=== PATIENT | male | born 1945 | race Caucasian/White ===

== ENCOUNTER 2017-05-04 08:44 | Day surgery (SDC) | payer MEDICARE, OTHER ==
[2017-04-28 16:05] VITALS: BMI 32.0
[~2017-05-04 08:44] MED LIST: LACTATED RINGERS 1,000 ML IV SCH
[2017-05-04] MEDS ORDERED: TIMOLOL 0.5% OPHTH DROPS 5 ML BTL ONE (09:00)
[2017-05-04] MEDS: PHENYLEPHRINE 10% OPHTH DROPS 5 ML BTL OP ONE ×3 (10:10→10:34)
[2017-05-04] MEDS: CYCLOPENTOLATE 1% OPHTH SOLN 2 ML BTL OP ONE ×3 (10:14→10:38)
[2017-05-04] MEDS: FLURBIPROFEN 0.03% OPHTH DROPS 2.5 ML BTL OP ONE ×3 (10:18→10:42)
[2017-05-04 10:29] VITALS: RESP 18; TEMP 97.4
[2017-05-04] MEDS ORDERED: LIDOCAINE 1% 20 ML VIAL (10MG/ML) FOR IV START INTRADERMA ONE (10:40)
[2017-05-04 10:42] LABS: Glucose,Whole Blood 116 mg/dL (75-99)
[2017-05-04] MEDS ORDERED: PROPOFOL 10 MG/ML 20 ML VIAL IV ONE (10:54)
[2017-05-04] MEDS ORDERED: BALANCED SALT IRRIG SOLN COMB2 15 ML IRRIG.SOLN IRRIGATION ONE (11:02)
[2017-05-04] MEDS ORDERED: HYALURONATE SODIUM INTRAOCULAR 1 EACH SYRINGE (10MG/ML) INTRAOCULA ONE (11:02)
[2017-05-04] MEDS ORDERED: EPINEPHrine (PF) 0.5 ML in BALANCED SALT IRRIG SOLN COMB2 500 ML IRRIGATION ONE (11:09)
--- NOTE | 2017-05-04 11:19 | P.OP ---
Date of Procedure: 05/04/17 Procedure(s) Performed: PREOPERATIVE DIAGNOSIS: Cataract, right eye. POSTOPERATIVE DIAGNOSIS: Cataract, right eye. OPERATION: Phacoemulsification cataract, right eye. DESCRIPTION OF PROCEDURE: The patient was taken to the preoperative holding area. Intravenous Propofol was given so as to bring about adequate sedation. The following mixture was given for local anesthesia: 5 mL of 2% lidocaine, 5 mL of 0.75% Marcaine, and 1 mL of Wydase. Approximately 4 mL was injected in the retrobulbar space of the surgical eye. Additional 1 mL was then directed to the temporal area of the surgical eye. This was performed to allow adequate neurological block of the facial muscles. The patient was revived and then taken into the operative room. The patient was prepped and draped in the usual sterile manner for the operative eye. A lid speculum was put into position. The conjunctiva was resected back from the limbus in the 12 o'clock position. Bleeding was controlled with electrocautery. A #69 blade was then used and a half-thickness scleral incision approximately 1-mm posterior to the limbus was made on bare sclera. This was shelved in the clear cornea using a crescent knife. Next a 15-degree blade was used to make a stab incision at the 3 o' clock position at the corneolimbal interface. Keratome blade was then used and the superior wound was extended into the anterior chamber. Viscoelastic was injected into the anterior chamber and to maintain its form. Next, a cystotome was used and a continuous anterior capsulotomy was made without difficulty. Hydrodissection using a blunt cannula and BSS was performed. Phaco probe was then employed and a groove extending from 12 to 6 o'clock in the lens was created. A Ronn wand was used through the stab incision so as to perform a divide and conquer technique. Next an irrigation aspiration probe was utilized and any residual cortex was removed from the eye. Again, viscoelastic was injected into the anterior chamber. An Jose posterior chamber lens implant was placed in the cartridge and injected into the anterior chamber without difficulty. The SinEstadebodaey hook was utilized to spin the lens into position and this was again performed without any difficulty. The irrigation and aspiration probe was again employed and any residual viscoelastic was removed from the eye. Then BSS was injected into the limbal stab incision and the anterior chamber re-inflated. The conjunctiva was reapproximated using electrocautery. One drop of 0.25% Timoptic was placed over the corneal along with TobraDex ophthalmic ointment. Two sterile patches and a Miller eye shield were taped into position. The patient was transported to the recovery room in stable condition. Pathology: none sent Condition: stable Disposition: same day
[2017-05-04 11:44] VITALS: BP 154/74; PULSE 68
[2017-05-04] MEDS ORDERED: GENTAMICIN/PREDNISOL AC OPHTH OINT 3.5GM OPHTHALMIC ONE (23:00)
[2017-05-04] MEDS ORDERED: BUPIVACAINE (PF) 0.75% 5 ML, HYALURONIDASE, HUMAN RECOMB 150 UNIT, LIDOCAINE 2% (PF) 10... MISCELLANE ONE ×3 (23:00)
[2017-05-04] MEDS ORDERED: TIMOLOL 0.5% OPHTH DROPS 5 ML BTL OP ONE (23:00)
== END 2017-05-04 11:59 | disposition home or self-care (01) ==
LOC: OR 08:44
PROVIDERS: ATTEND Ophthalmology
DX: E11.36 Type 2 diabetes mellitus with diabetic cataract (principal); E11.319 Type 2 diabetes mellitus with unspecified diabetic retinopathy without macular edema; I25.10 Atherosclerotic heart disease of native coronary artery without angina pectoris; I10 Essential (primary) hypertension; F41.9 Anxiety disorder, unspecified; E78.5 Hyperlipidemia, unspecified; Z87.891 Personal history of nicotine dependence; Z86.73 Personal history of transient ischemic attack (TIA), and cerebral infarction without residual deficits; Z95.5 Presence of coronary angioplasty implant and graft; Z95.1 Presence of aortocoronary bypass graft; Z83.511 Family history of glaucoma
CPT/HCPCS: 66984; V2632; J3470; J2001; J0171; J2704

== ENCOUNTER 2017-06-08 10:01 | Day surgery (SDC) | payer MEDICARE, OTHER ==
[2017-06-03 15:09] VITALS: BMI 32.0
[2017-06-08] MEDS: PHENYLEPHRINE 10% OPHTH DROPS 5 ML BTL OP ONE ×3 (11:10→11:28)
[2017-06-08 11:11] VITALS: RESP 16; TEMP 96.8
[2017-06-08] MEDS: CYCLOPENTOLATE 1% OPHTH SOLN 2 ML BTL OP ONE ×3 (11:13→11:32)
[2017-06-08] MEDS: FLURBIPROFEN 0.03% OPHTH DROPS 2.5 ML BTL OP ONE ×3 (11:16→11:36)
[2017-06-08 11:31] LABS: Glucose,Whole Blood 86 mg/dL (75-99)
[2017-06-08] MEDS ORDERED: PROPOFOL 10 MG/ML 20 ML VIAL IV ONE (11:50)
[2017-06-08] MEDS ORDERED: EPINEPHrine (PF) 0.5 ML in BALANCED SALT IRRIG SOLN COMB2 500 ML IRRIGATION ONE (11:55)
[2017-06-08] MEDS ORDERED: BALANCED SALT IRRIG SOLN COMB2 15 ML IRRIG.SOLN INTRAOCULA ONE (11:56)
[2017-06-08] MEDS ORDERED: HYALURONATE SODIUM INTRAOCULAR 1 EACH SYRINGE (10MG/ML) INTRAOCULA ONE (11:57)
--- NOTE | 2017-06-08 12:12 | P.OP ---
Date of Procedure: 06/08/17 Procedure(s) Performed: PREOPERATIVE DIAGNOSIS: Cataract, left eye. POSTOPERATIVE DIAGNOSIS: Cataract, left eye. OPERATION: Phacoemulsification cataract, left eye. DESCRIPTION OF PROCEDURE: The patient was taken to the preoperative holding area. Intravenous Propofol was given so as to bring about adequate sedation. The following mixture was given for local anesthesia: 5 mL of 2% lidocaine, 5 mL of 0.75% Marcaine, and 1 mL of Wydase. Approximately 4 mL was injected in the retrobulbar space of the surgical eye. Additional 1 mL was then directed to the temporal area of the surgical eye. This was performed to allow adequate neurological block of the facial muscles. The patient was revived and then taken into the operative room. The patient was prepped and draped in the usual sterile manner for the operative eye. A lid speculum was put into position. The conjunctiva was resected back from the limbus in the 12 o'clock position. Bleeding was controlled with electrocautery. A #69 blade was then used and a half-thickness scleral incision approximately 1-mm posterior to the limbus was made on bare sclera. This was shelved in the clear cornea using a crescent knife. Next a 15-degree blade was used to make a stab incision at the 3 o' clock position at the corneolimbal interface. Keratome blade was then used and the superior wound was extended into the anterior chamber. Viscoelastic was injected into the anterior chamber and to maintain its form. Next, a cystotome was used and a continuous anterior capsulotomy was made without difficulty. Hydrodissection using a blunt cannula and BSS was performed. Phaco probe was then employed and a groove extending from 12 to 6 o'clock in the lens was created. A Ronn wand was used through the stab incision so as to perform a divide and conquer technique. Next an irrigation aspiration probe was utilized and any residual cortex was removed from the eye. Again, viscoelastic was injected into the anterior chamber. An Jose posterior chamber lens implant was placed in the cartridge and injected into the anterior chamber without difficulty. The SinLagotekey hook was utilized to spin the lens into position and this was again performed without any difficulty. The irrigation and aspiration probe was again employed and any residual viscoelastic was removed from the eye. Then BSS was injected into the limbal stab incision and the anterior chamber re-inflated. The conjunctiva was reapproximated using electrocautery. One drop of 0.25% Timoptic was placed over the corneal along with TobraDex ophthalmic ointment. Two sterile patches and a Miller eye shield were taped into position. The patient was transported to the recovery room in stable condition. Pathology: none sent Condition: stable Disposition: same day
[2017-06-08 12:53] VITALS: BP 158/90; PULSE 68
[2017-06-08] MEDS ORDERED: BUPIVACAINE (PF) 0.75% 5 ML, HYALURONIDASE, HUMAN RECOMB 150 UNIT, LIDOCAINE 2% (PF) 10... MISCELLANE ONE ×3 (23:00)
[2017-06-08] MEDS ORDERED: GENTAMICIN/PREDNISOL AC OPHTH OINT 3.5GM OPHTHALMIC ONE (23:00)
[2017-06-08] MEDS ORDERED: TIMOLOL 0.5% OPHTH DROPS 5 ML BTL OP ONE (23:00)
== END 2017-06-08 12:55 ==
LOC: OR 10:01
PROVIDERS: ATTEND Ophthalmology
DX: E11.36 Type 2 diabetes mellitus with diabetic cataract (principal); I10 Essential (primary) hypertension; F41.9 Anxiety disorder, unspecified; E11.319 Type 2 diabetes mellitus with unspecified diabetic retinopathy without macular edema; H34.8112 Central retinal vein occlusion, right eye, stable; E78.5 Hyperlipidemia, unspecified; I25.10 Atherosclerotic heart disease of native coronary artery without angina pectoris; I69.954 Hemiplegia and hemiparesis following unspecified cerebrovascular disease affecting left non-dominant side; Z79.4 Long term (current) use of insulin; Z79.02 Long term (current) use of antithrombotics/antiplatelets; Z87.442 Personal history of urinary calculi; Z87.891 Personal history of nicotine dependence; Z98.41 Cataract extraction status, right eye; Z96.1 Presence of intraocular lens; Z95.1 Presence of aortocoronary bypass graft; Z79.899 Other long term (current) drug therapy
CPT/HCPCS: 66984; V2632; J3470; J2001; J0171; J2704

== ENCOUNTER 2017-08-01 18:17 | Inpatient (IN) | payer MEDICARE, OTHER ==
[2017-08-01] MEDS ORDERED: MORPHINE SULFATE 4 MG/0.8 ML SYRINGE (INJ) IV STA (18:42)
--- NOTE | 2017-08-01 18:50 | ED ---
Fever HPI - General Stated Complaint: shoulder pain Time Seen by Provider: 08/01/17 18:26 Source: patient, EMS Limitations: physical limitation - History of Present Illness Initial Comments: This patient is 71-year-old man transferred from the alf to be evaluated for complaint of right shoulder pain. The patient states this is been going on since yesterday. He denies trauma to the chest or shoulder. Patient is not able to characterize the pain well. He does deny anginal type symptoms, with no chest pain, dyspnea, diaphoresis, nausea or vomiting. MD Complaint: fever Onset/Timin -: days(s) Associated Symptoms: denies other symptoms Treatments Prior to Arrival: none - Related Data Home Medications Medication Instructions Recorded Confirmed Baclofen 10 mg PO TID@0800,1200,1800 09/10/15 08/02/17 Fenofibrate [Lofibra] 160 mg PO DAILY 09/10/15 08/02/17 Gabapentin [Neurontin] 300 mg PO TID@0800,1200,1800 09/10/15 08/02/17 Sennosides-Docusate Sodium 1 tab PO BID PRN 12/04/15 08/02/17 [Senokot-S] Acetaminophen [Tylenol] 650 mg PO Q4H PRN 04/28/17 08/02/17 Artificial Tears Ointment 1 applic BOTH EYES QID 04/28/17 08/02/17 [Lubrifresh Pm Ointment] Artificial Tears-Hypromellose 2 drops BOTH EYES Q4H PRN 04/28/17 08/02/17 [Artificial Tear Drops] Atorvastatin [Lipitor] 40 mg PO HS 04/28/17 08/02/17 Cholecalciferol [Vitamin D3] 1,000 unit PO HS 04/28/17 08/02/17 Clopidogrel [Plavix] 75 mg PO DAILY 04/28/17 08/02/17 Cranberry Fruit Concentrate 450 mg PO BID 04/28/17 08/02/17 [Cranberry] Escitalopram [Lexapro] 10 mg PO DAILY 04/28/17 08/02/17 INSULIN LISPRO (humaLOG) [humaLOG] 34 units SQ AC-TID 04/28/17 08/02/17 Insulin Detemir [Levemir] 48 unit SQ BID 04/28/17 08/02/17 Levothyroxine Sodium [Synthroid] 50 mcg PO DAILY 04/28/17 08/02/17 Linagliptin [Tradjenta] 5 mg PO DAILY 04/28/17 08/02/17 Loperamide [Imodium] 2 mg PO QID PRN 04/28/17 08/02/17 Magnesium Hydroxide [Milk of 2,400 mg PO DAILY PRN 04/28/17 08/02/17 Magnesia] Multivitamins, Thera [Multivitamin 1 tab PO HS 04/28/17 08/02/17 (formulary)] Mylanta Suspension 30 ml PO Q4H PRN 04/28/17 08/02/17 Pioglitazone [Actos] 15 mg PO DAILY 04/28/17 08/02/17 cycloSPORINE [Restasis] 1 drop BOTH EYES BID 04/28/17 08/02/17 Diphenox-Atrop 2.5-0.025 mg 1 tab PO Q6H PRN 06/03/17 08/02/17 [Lomotil] Acetaminophen-Codeine 300-30mg 1 tab PO Q6H PRN 08/02/17 08/02/17 [Tylenol #3] Amoxic-Pot Clav 875-125Mg 1 tab PO Q12HR 08/02/17 08/02/17 [Augmentin 875-125] Previous Rx's Medication Instructions Recorded Aspirin 81 mg PO DAILY chew 10/02/15 Carvedilol [Coreg] 3.125 mg PO BID-W/MEALS tab 10/02/15 Famotidine [Pepcid] 20 mg PO DAILY tab 10/02/15 clonazePAM [KlonoPIN] 0.5 mg PO HS #30 tab 10/02/15 Allergies Allergy/AdvReac Type Severity Reaction Status Date / Time No Known Allergies Allergy Verified 08/02/17 09:24 Review of Systems ROS Statement: Those systems with pertinent positive or pertinent negative responses have been documented in the HPI. ROS Other: All systems not noted in ROS Statement are negative. Constitutional: Reports: as per HPI, fever Respiratory: Denies: cough, dyspnea Cardiovascular: Denies: chest pain, palpitations, edema, syncope Gastrointestinal: Denies: abdominal pain, vomiting, diarrhea Genitourinary: Denies: dysuria, hematuria Musculoskeletal: Denies: back pain Skin: Denies: rash Neurological: Reports: weakness (Chronic left hemiparesis secondary stroke). Denies: headache Past Medical History Past Medical History: Coronary Artery Disease (CAD), Cancer, CVA/TIA, Diabetes Mellitus, Eye Disorder, Hyperlipidemia, Hypertension, Osteoarthritis (OA), Prostate Disorder, Skin Disorder Additional Past Medical History / Comment(s): stroke w/residual lt 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 diabetic retinopathy/gets shots in eyes. RLS. KIDNEY STONES X6. PAST FX TO JUSTIN ANKLES, ARMS, WRIST. HX EXC SKIN CA SPOTS ON BACK, HEALING. CATARACT LT EYE. History of Any Multi-Drug Resistant Organisms: None Reported Past Surgical History: Heart Catheterization With Stent, Hernia Repair, Joint Replacement, Orthopedic Surgery Additional Past Surgical History / Comment(s): X3 CARDIAC STENTS. BONE MARROW ASPIRATION 2012. RT ROTATOR CUFF. INGUINAL HERNIA REPAIR. COLONOSCOPY. RT SHOULDER REPLACEMENT. PTCA 1999, CARDIAC STRESS TEST 2010. EXC RT EYE CATARACT 04/2017. Past Anesthesia/Blood Transfusion Reactions: No Reported Reaction Date of Last Stent Placement:: UNSURE Smoking Status: Former smoker - Past Family History Mother Family Medical History: Myocardial Infarction (PR) Father Family Medical History: Cancer, Myocardial Infarction (PR) Additional Family Medical History / Comment(s): BONE CANCER General Exam General appearance: alert, in no apparent distress Head exam: Present: atraumatic, normocephalic Eye exam: Present: normal appearance. Absent: scleral icterus, conjunctival injection ENT exam: Present: normal oropharynx Neck exam: Present: normal inspection Respiratory exam: Present: normal lung sounds bilaterally. Absent: respiratory distress, wheezes, rales, rhonchi, stridor, chest wall tenderness Cardiovascular Exam: Present: regular rate, normal rhythm, normal heart sounds. Absent: systolic murmur, diastolic murmur, rubs, gallop GI/Abdominal exam: Present: soft. Absent: distended, tenderness, guarding, rebound, mass Extremities exam: Present: normal inspection, tenderness (The patient does appear to have reproducible right shoulder pain with range of motion at the shoulder joint also with palpation.). Absent: normal capillary refill, calf tenderness Back exam: Present: normal inspection. Absent: CVA tenderness (R), CVA tenderness (L) Neurological exam: Present: alert, CN II-XII intact, motor sensory deficit ( There is left sided weakness consistent with previous stroke). Absent: oriented X3 (Oriented to person and place not date) Skin exam: Present: warm, dry, intact, normal color. Absent: rash Course Vital Signs 08/01/17 08/01/17 08/01/17 18:49 19:41 20:00 Temperature 102.2 F H 101.7 F H Pulse Rate 84 85 84 Pulse Rate [ Right Pulse Oximetery] Respiratory 20 20 18 Rate Blood Pressure 104/62 115/70 118/74 Blood Pressure [Right Arm Supine] O2 Sat by Pulse 93 L 98 98 Oximetry 08/01/17 08/01/17 21:01 22:40 Temperature 99.1 F Pulse Rate 88 Pulse Rate [ 89 Right Pulse Oximetery] Respiratory 20 16 Rate Blood Pressure 112/67 Blood Pressure 126/73 [Right Arm Supine] O2 Sat by Pulse 97 Oximetry - Reevaluation(s) Reevaluation #1: 08/01/17 21:15 Receive the critical troponin from lab, repeat ECG, heparin ordered, and case discussed with cardiology (Dr. Duenas is on-call). There treatment recommendations incorporated. Medical Decision Making - Medical Decision Making This patient is a 71-year-old man sent from alf to be evaluated for having right shoulder pain. He is found to have fever here. There is no definite source, though the patient does have some few white cells in the urine. On the some be cultured, and the patient is started on Levofloxn. Given the patient's elevated d-dimer, limited mobility, there is suspicion for a embolism. The patient's creatinine is too high for computed tomography scan, so he is started on heparin and a VQ scan will be ordered. This may also account for the patient's fever. - Lab Data Result diagrams: 08/04/17 03:26 08/04/17 03:26 Lab Results 08/01/17 08/01/17 08/01/17 Range/Units 19:22 19:22 19:22 WBC 10.6 (3.8-10.6) k/uL RBC 3.35 L (4.30-5.90) m/uL Hgb 10.9 L (13.0-17.5) gm/dL Hct 32.6 L (39.0-53.0) % MCV 97.2 (80.0-100.0) fL MCH 32.5 (25.0-35.0) pg MCHC 33.5 (31.0-37.0) g/dL RDW 13.3 (11.5-15.5) % Plt Count 39 L* (150-450) k/uL Neutrophils % 86 % Lymphocytes % 7 % Monocytes % 5 % Eosinophils % 0 % Basophils % 0 % Neutrophils # 9.1 H (1.3-7.7) k/uL Lymphocytes # 0.7 L (1.0-4.8) k/uL Monocytes # 0.5 (0-1.0) k/uL Eosinophils # 0.0 (0-0.7) k/uL Basophils # 0.0 (0-0.2) k/uL Manual Slide Review Performed Dohle Bodies Present PT (9.0-12.0) sec INR (<1.2) APTT (22.0-30.0) sec D-Dimer (<0.60) mg/L FEU Sodium 141 (137-145) mmol/L Potassium 5.0 (3.5-5.1) mmol/L Chloride 101 (98-107) mmol/L Carbon Dioxide 28 (22-30) mmol/L Anion Gap 12 mmol/L BUN 53 H (9-20) mg/dL Creatinine 2.50 H (0.66-1.25) mg/dL Est GFR (CKD-EPI)AfAm 29 (>60 ml/min/1.73 sqM) Est GFR (CKD-EPI)NonAf 25 (>60 ml/min/1.73 sqM) Glucose 200 H (74-99) mg/dL Plasma Lactic Acid Adair (0.7-2.0) mmol/L Calcium 10.0 (8.4-10.2) mg/dL Magnesium 2.0 (1.6-2.3) mg/dL Total Bilirubin 1.0 (0.2-1.3) mg/dL AST 139 H (17-59) U/L ALT 46 (21-72) U/L Alkaline Phosphatase 47 (38-126) U/L Total Creatine Kinase 483 H (55-170) U/L CK-MB (CK-2) 11.9 H* (0.0-2.4) ng/mL CK-MB (CK-2) Rel Index 2.5 Troponin I 23.100 H* (0.000-0.034) ng/mL NT-Pro-B Natriuret Pep pg/mL Total Protein 6.7 (6.3-8.2) g/dL Albumin 4.0 (3.5-5.0) g/dL Amylase <30 L (30-110) U/L Lipase 42 (23-300) U/L Urine Color Urine Appearance (Clear) Urine pH (5.0-8.0) Ur Specific Howard (1.001-1.035) Urine Protein (Negative) Urine Glucose (UA) (Negative) Urine Ketones (Negative) Urine Blood (Negative) Urine Nitrite (Negative) Urine Bilirubin (Negative) Urine Urobilinogen (<2.0) mg/dL Ur Leukocyte Esterase (Negative) Urine RBC (0-5) /hpf Urine WBC (0-5) /hpf Ur Squamous Epith Cells (0-4) /hpf Hyaline Casts (0-2) /lpf Urine Mucus (None) /hpf 08/01/17 08/01/17 08/01/17 Range/Units 19:22 19:22 19:22 WBC (3.8-10.6) k/uL RBC (4.30-5.90) m/uL Hgb (13.0-17.5) gm/dL Hct (39.0-53.0) % MCV (80.0-100.0) fL MCH (25.0-35.0) pg MCHC (31.0-37.0) g/dL RDW (11.5-15.5) % Plt Count (150-450) k/uL Neutrophils % % Lymphocytes % % Monocytes % % Eosinophils % % Basophils % % Neutrophils # (1.3-7.7) k/uL Lymphocytes # (1.0-4.8) k/uL Monocytes # (0-1.0) k/uL Eosinophils # (0-0.7) k/uL Basophils # (0-0.2) k/uL Manual Slide Review Dohle Bodies PT 12.4 H (9.0-12.0) sec INR 1.3 H (<1.2) APTT 24.8 (22.0-30.0) sec D-Dimer (<0.60) mg/L FEU Sodium (137-145) mmol/L Potassium (3.5-5.1) mmol/L Chloride (98-107) mmol/L Carbon Dioxide (22-30) mmol/L Anion Gap mmol/L BUN (9-20) mg/dL Creatinine (0.66-1.25) mg/dL Est GFR (CKD-EPI)AfAm (>60 ml/min/1.73 sqM) Est GFR (CKD-EPI)NonAf (>60 ml/min/1.73 sqM) Glucose (74-99) mg/dL Plasma Lactic Acid Adair 1.6 (0.7-2.0) mmol/L Calcium (8.4-10.2) mg/dL Magnesium (1.6-2.3) mg/dL Total Bilirubin (0.2-1.3) mg/dL AST (17-59) U/L ALT (21-72) U/L Alkaline Phosphatase (38-126) U/L Total Creatine Kinase (55-170) U/L CK-MB (CK-2) (0.0-2.4) ng/mL CK-MB (CK-2) Rel Index Troponin I (0.000-0.034) ng/mL NT-Pro-B Natriuret Pep 47555 pg/mL Total Protein (6.3-8.2) g/dL Albumin (3.5-5.0) g/dL Amylase (30-110) U/L Lipase (23-300) U/L Urine Color Urine Appearance (Clear) Urine pH (5.0-8.0) Ur Specific Howard (1.001-1.035) Urine Protein (Negative) Urine Glucose (UA) (Negative) Urine Ketones (Negative) Urine Blood (Negative) Urine Nitrite (Negative) Urine Bilirubin (Negative) Urine Urobilinogen (<2.0) mg/dL Ur Leukocyte Esterase (Negative) Urine RBC (0-5) /hpf Urine WBC (0-5) /hpf Ur Squamous Epith Cells (0-4) /hpf Hyaline Casts (0-2) /lpf Urine Mucus (None) /hpf 08/01/17 08/01/17 Range/Units 19:38 21:33 WBC (3.8-10.6) k/uL RBC (4.30-5.90) m/uL Hgb (13.0-17.5) gm/dL Hct (39.0-53.0) % MCV (80.0-100.0) fL MCH (25.0-35.0) pg MCHC (31.0-37.0) g/dL RDW (11.5-15.5) % Plt Count (150-450) k/uL Neutrophils % % Lymphocytes % % Monocytes % % Eosinophils % % Basophils % % Neutrophils # (1.3-7.7) k/uL Lymphocytes # (1.0-4.8) k/uL Monocytes # (0-1.0) k/uL Eosinophils # (0-0.7) k/uL Basophils # (0-0.2) k/uL Manual Slide Review Dohle Bodies PT (9.0-12.0) sec INR (<1.2) APTT (22.0-30.0) sec D-Dimer 1.38 H (<0.60) mg/L FEU Sodium (137-145) mmol/L Potassium (3.5-5.1) mmol/L Chloride (98-107) mmol/L Carbon Dioxide (22-30) mmol/L Anion Gap mmol/L BUN (9-20) mg/dL Creatinine (0.66-1.25) mg/dL Est GFR (CKD-EPI)AfAm (>60 ml/min/1.73 sqM) Est GFR (CKD-EPI)NonAf (>60 ml/min/1.73 sqM) Glucose (74-99) mg/dL Plasma Lactic Acid Adair (0.7-2.0) mmol/L Calcium (8.4-10.2) mg/dL Magnesium (1.6-2.3) mg/dL Total Bilirubin (0.2-1.3) mg/dL AST (17-59) U/L ALT (21-72) U/L Alkaline Phosphatase (38-126) U/L Total Creatine Kinase (55-170) U/L CK-MB (CK-2) (0.0-2.4) ng/mL CK-MB (CK-2) Rel Index Troponin I (0.000-0.034) ng/mL NT-Pro-B Natriuret Pep pg/mL Total Protein (6.3-8.2) g/dL Albumin (3.5-5.0) g/dL Amylase (30-110) U/L Lipase (23-300) U/L Urine Color Yellow Urine Appearance Cloudy (Clear) Urine pH 5.5 (5.0-8.0) Ur Specific Howard 1.017 (1.001-1.035) Urine Protein 1+ H (Negative) Urine Glucose (UA) 3+ H (Negative) Urine Ketones Negative (Negative) Urine Blood Moderate H (Negative) Urine Nitrite Negative (Negative) Urine Bilirubin Negative (Negative) Urine Urobilinogen <2.0 (<2.0) mg/dL Ur Leukocyte Esterase Negative (Negative) Urine RBC >182 H (0-5) /hpf Urine WBC 14 H (0-5) /hpf Ur Squamous Epith Cells <1 (0-4) /hpf Hyaline Casts 5 H (0-2) /lpf Urine Mucus Rare H (None) /hpf - EKG Data -: EKG Interpreted by In EKG shows normal: sinus rhythm, axis (Left axis deviation), intervals (Normal), ST-T waves (There are lateral ST depressions, these are present from the EKG of 12/04/2015) Rate: normal (Rate 84 bpm) When compared to previous EKG there are: no significant change Disposition Clinical Impression: Elevated troponin I level, Urinary tract infection, Elevated d-dimer, Pulmonary embolus, Thrombocytopenia, Right shoulder pain Disposition: ADMITTED IP TO THIS HOSP Condition: Critical
[2017-08-01 19:38] LABS: Basophils % (A) 0 %; Eosinophils % (A) 0 %; HCT 32.6 % (39.0-53.0); HGB 10.9 gm/dL (13.0-17.5); Lymphocytes # (A) 0.7 k/uL (1.0-4.8); Lymphocytes % (A) 7 %; MCH 32.5 pg (25.0-35.0); MCHC 33.5 g/dL (31.0-37.0); MCV 97.2 fL (80.0-100.0); Mean Platelet Volume 10.5; Monocytes # (A) 0.5 k/uL (0-1.0); Monocytes % (A) 5 %; Neutrophils # (A) 9.1 k/uL (1.3-7.7); Neutrophils % (A) 86 %; RBC 3.35 m/uL (4.30-5.90); RDW 13.3 % (11.5-15.5); WBC 10.6 k/uL (3.8-10.6)
[2017-08-01 19:46] LABS: ALT 46 U/L (21-72); AST 139 U/L (17-59); Alkaline Phosphatase 47 U/L (38-126); Amylase <30 U/L (30-110); Anion Gap 12 mmol/L; Blood Urea Nitrogen 53 mg/dL (9-20); Carbon Dioxide 28 mmol/L (22-30); Chloride 101 mmol/L (98-107); Glucose 200 mg/dL (74-99); Lipase 42 U/L (23-300); Sodium 141 mmol/L (137-145); Total Protein 6.7 g/dL (6.3-8.2)
[2017-08-01 19:49] LABS: INR 1.3 (<1.2); Partial Thromboplastin Time 24.8 sec (22.0-30.0); Prothrombin Time 12.4 sec (9.0-12.0)
[2017-08-01 19:54] LABS: Platelet Count 39 k/uL (150-450)
[2017-08-01 19:56] LABS: Dohle Bodies Present
[2017-08-01 20:03] LABS: Appearance,Urine Cloudy (Clear); Bilirubin,Urine Negative (Negative); Blood,Urine Moderate (Negative); Color,Urine Yellow; Glucose,Urine (UA) 3+ (Negative); Hyaline Casts,Urine 5 /lpf (0-2); Ketones,Urine Negative (Negative); Leukocyte Esterase,Urine Negative (Negative); Mucus,Urine Rare /hpf; Nitrite,Urine Negative (Negative); PH, Urine 5.5 (5.0-8.0); Protein,Urine 1+ (Negative); RBC,Urine >182 /hpf (0-5); Specific Gravity,Urine 1.017 (1.001-1.035); Squamous Epithelial Cell,Urine <1 /hpf (0-4); Urobilinogen,Urine <2.0 mg/dL (<2.0); WBC,Urine 14 /hpf (0-5)
--- NOTE | 2017-08-01 20:10 | XR ---
EXAMINATION TYPE: XR chest 1V portable DATE OF EXAM: 08/01/2017 COMPARISON: September 27, 2015 HISTORY: Chest pain TECHNIQUE: Single frontal view of the chest is obtained. FINDINGS: Patchy opacities are noted most consistent with moderate congestive heart failure. No defi nite sizable pleural effusion is seen. There is no pneumothorax. Postsurgical changes to the right hu merus are noted. IMPRESSION: Moderate CHF.
--- NOTE | 2017-08-01 20:11 | XR ---
Exam: Right shoulder complete HISTORY: Right shoulder pain 3 views right shoulder were obtained. FINDINGS: Antibiotic implant is again noted unchanged from compared to the previous study from December 05. Bony mineralization is again reduced. No canal fracture or subluxation is identified. There is dif fuse osteopenia noted. Visualized hemithorax is unremarkable. IMPRESSION: No acute abnormality is identified.
[2017-08-01 20:23] LABS: Creatine Kinase MB 11.9 ng/mL (0.0-2.4); Troponin I 23.1 ng/mL (0.000-0.034)
[2017-08-01] MEDS ORDERED: HEPARIN SODIUM,PORCINE 5,000 UNIT/ML 1 ML VIAL IV PRN (21:10)
[2017-08-01] MEDS ORDERED: HEPARIN SODIUM,PORCINE 5,000 UNIT/ML 1 ML VIAL IV ONE (21:10)
[2017-08-01] MEDS ORDERED: HEPARIN SOD,PORK IN 0.45% NACL 25,000 UNIT in 0.45% NACL 1 500ML.BAG IV SCH (21:15)
[2017-08-01] MEDS ORDERED: NITROGLYCERIN SL TABS 0.4 MG TAB SUBLINGUAL PRN (22:03)
[2017-08-01] MEDS ORDERED: DIPHENOX-ATROP 2.5-0.025 MG 1 EACH TAB PO PRN (22:06)
[2017-08-01] MEDS ORDERED: SENNOSIDES-DOCUSATE SODIUM 1 EACH TAB PO PRN (22:06)
[2017-08-01] MEDS ORDERED: MAGNESIUM HYDROXIDE 2,400 MG/10 ML CUP PO PRN (22:06)
[2017-08-01] MEDS ORDERED: MAG HYDROX/AL HYDROX/SIMETH 30 ML CUP PO PRN (22:06)
[2017-08-01] MEDS: HEPARIN SODIUM,PORCINE/D5W PMX 25,000 UNIT in DEXTROSE/WATER 1 500ML.BAG IV SCH (23:00)
[2017-08-02] MEDS: LEVOFLOXACIN 750MG-D5W PMX 750 MG in DEXTROSE/WATER 1 150ML.BAG IVPB SCH (01:00)
[2017-08-02] MEDS ORDERED: HEPARIN SODIUM,PORCINE/D5W PMX 25,000 UNIT in DEXTROSE/WATER 1 500ML.BAG IV SCH ×3 (02:00→23:45)
[2017-08-02 03:53] LABS: Basophils % (A) 0 %; Eosinophils # (A) 0.1 k/uL (0-0.7); Eosinophils % (A) 1 %; HCT 32.4 % (39.0-53.0); HGB 10.5 gm/dL (13.0-17.5); Lymphocytes # (A) 0.5 k/uL (1.0-4.8); Lymphocytes % (A) 5 %; MCH 31.7 pg (25.0-35.0); MCHC 32.4 g/dL (31.0-37.0); MCV 97.9 fL (80.0-100.0); Mean Platelet Volume 9.3; Monocytes # (A) 0.5 k/uL (0-1.0); Monocytes % (A) 5 %; Neutrophils # (A) 9.2 k/uL (1.3-7.7); Neutrophils % (A) 89 %; Platelet Count 38 k/uL (150-450); RBC 3.31 m/uL (4.30-5.90); RDW 13.2 % (11.5-15.5); WBC 10.4 k/uL (3.8-10.6)
[2017-08-02 04:12] LABS: Cholesterol 131 mg/dL (<200); HDL Cholesterol 30 mg/dL (40-60)
[2017-08-02 04:13] LABS: LDL Cholesterol,Calculated 46 mg/dL (0-99); Triglycerides 275 mg/dL (<150)
[2017-08-02 04:40] LABS: Creatine Kinase MB 10.3 ng/mL (0.0-2.4); Troponin I 22.3 ng/mL (0.000-0.034)
[2017-08-02] MEDS: ACETAMINOPHEN TAB 325 MG TAB PO PRN ×4 (05:34→23:06)
[2017-08-02 06:13] LABS: Glucose,Whole Blood 209 mg/dL (75-99)
[2017-08-02] MEDS: INSULIN ASPART 100 UNIT/ML 1 ML 10 ML VIAL SQ SCH ×3 (08:03→17:10)
--- NOTE | 2017-08-02 08:53 | NM ---
EXAMINATION TYPE: NM pul perfusion DATE OF EXAM: 08/02/2017 COMPARISON: Chest x-ray 08/01/2017 HISTORY: Shortness of breath Following administration of 4.9 mCi Tc 99m MAA. Images obtained post injection. FINDINGS: The patient could not tolerate ventilation images therefore the exam is nondiagnostic. The perfusion images there are a few scattered peripheral areas of reduced uptake involving both lungs greater on t he left. Correlate clinically. IMPRESSION: Indeterminant assessment for pulmonary embolism as discussed above. See above.
[2017-08-02] MEDS ORDERED: ASPIRIN 325 MG TAB PO SCH (09:00)
[2017-08-02] MEDS ORDERED: CLOPIDOGREL 75 MG TAB PO SCH (09:00)
[2017-08-02] MEDS: FENOFIBRATE 160 MG TAB PO SCH (09:14)
[2017-08-02] MEDS: CARVEDILOL 3.125 MG TAB PO SCH ×2 (09:14→17:10)
[2017-08-02] MEDS: ASPIRIN 81 MG PO SCH (09:14)
[2017-08-02] MEDS: LEVOTHYROXINE 50 MCG TAB PO SCH (09:14)
[2017-08-02] MEDS: cycloSPORINE 0.05% OPHTH 0.4 ML DROPERETTE BOTH EYES SCH ×2 (09:14→20:56)
[2017-08-02] MEDS: GABAPENTIN 300 MG CAP PO SCH ×3 (09:14→20:55)
[2017-08-02] MEDS: PIOGLITAZONE 15 MG TAB PO SCH (09:14)
[2017-08-02] MEDS: INSULIN DETEMIR 100 UNIT/ML 10 ML VIAL SQ SCH ×2 (09:15→22:59)
[2017-08-02] MEDS: FAMOTIDINE 20 MG TAB PO SCH (09:15)
[2017-08-02] MEDS: MULTIVITAMINS, THERA 1 EACH TAB PO SCH (09:15)
[2017-08-02] MEDS: LINAGLIPTIN 5 MG TABLET PO SCH (09:15)
[2017-08-02] MEDS: ESCITALOPRAM 10 MG TAB PO SCH (09:15)
--- NOTE | 2017-08-02 09:55 | P.CRDCN ---
History of Present Illness Consult date: 08/02/17 Requesting physician: Bing Almodovar Reason for Consult (text): Right arm pain Chief complaint: Right arm pain History of present illness: This is a 71-year-old gentleman who follows with Dr. Mejia in the office. He has known history of hypertension, hyperlipidemia, prior CVA 4 , homicidal ischemia, permanent pacemaker implantation, patient also has a known history of coronary artery disease with prior stent placement of the RCA in 2000 subsequent to that patient had stenting of the RCA in 2006 with dissection history also of peripheral vascular disease, currently resides at an extended care facility. Patient presented to the hospital on this occasion with symptoms of sudden onset of severe right upper arm pain, he denies any chest discomfort or difficulty in breathing. EKG on arrival here showed a normal sinus rhythm with lateral ST-T wave changes noted. Chest x-ray showed moderate congestive heart failure. Right shoulder x-ray was performed which did not reveal any acute abnormality. Temperature on arrival here 102.2, subsequent temperatures 101.7, 99, 100.1. Blood pressure 120/60 with a heart rate in the 60s, 100% on 2 L of oxygen. Laboratory data, white blood cell count is normal, hemoglobin 10 5, platelet count 38, BUN 53, creatinine 2.5, potassium 5.0. Troponin on admission 23.1, subsequent troponin 22. CK 43, 463 , MB 11.9 and 10.3. BNP level 19,300.Influenza A and B are negative. At the time of my examination this morning, patient continues to complain of pain in that right arm, denies any shortness of breath but appears to have mild difficulty in breathing while lying flat. Past Medical History Past Medical History: Coronary Artery Disease (CAD), Cancer, CVA/TIA, Diabetes Mellitus, Eye Disorder, Hyperlipidemia, Hypertension, Osteoarthritis (OA), Prostate Disorder, Skin Disorder Additional Past Medical History / Comment(s): stroke w/residual lt 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 diabetic retinopathy/gets shots in eyes. RLS. KIDNEY STONES X6. PAST FX TO JUSTIN ANKLES, ARMS, WRIST. HX EXC SKIN CA SPOTS ON BACK, HEALING. CATARACT LT EYE. History of Any Multi-Drug Resistant Organisms: None Reported Past Surgical History: Heart Catheterization With Stent, Hernia Repair, Joint Replacement, Orthopedic Surgery Additional Past Surgical History / Comment(s): X3 CARDIAC STENTS. BONE MARROW ASPIRATION 2012. RT ROTATOR CUFF. INGUINAL HERNIA REPAIR. COLONOSCOPY. RT SHOULDER REPLACEMENT. PTCA 1999, CARDIAC STRESS TEST 2010. EXC RT EYE CATARACT 04/2017. Past Anesthesia/Blood Transfusion Reactions: No Reported Reaction Date of Last Stent Placement:: UNSURE Smoking Status: Former smoker - Past Family History Mother Family Medical History: Myocardial Infarction ([place]) Father Family Medical History: Cancer, Myocardial Infarction ([place]) Additional Family Medical History / Comment(s): BONE CANCER Medications and Allergies Home Medications Medication Instructions Recorded Confirmed Type Baclofen 10 mg PO TID 09/10/15 06/03/17 History Fenofibrate [Lofibra] 160 mg PO DAILY 09/10/15 06/03/17 History Gabapentin [Neurontin] 300 mg PO TID 09/10/15 06/03/17 History Aspirin 81 mg PO DAILY chew 10/02/15 06/03/17 Rx Carvedilol [Coreg] 3.125 mg PO BID-W/MEALS tab 10/02/15 06/03/17 Rx Famotidine [Pepcid] 20 mg PO DAILY tab 10/02/15 06/03/17 Rx clonazePAM [KlonoPIN] 0.5 mg PO HS #30 tab 10/02/15 06/03/17 Rx Sennosides-Docusate Sodium 1 tab PO BID PRN 12/04/15 06/03/17 History [Senokot-S] Acetaminophen [Tylenol] 650 mg PO Q4H PRN 04/28/17 06/03/17 History Artificial Tears Ointment 1 unit OPHTHALMIC QID 04/28/17 06/03/17 History [Lubrifresh Pm Ointment] Artificial Tears-Hypromellose 2 drops BOTH EYES Q4H PRN 04/28/17 06/03/17 History [Artificial Tear Drops] Atorvastatin [Lipitor] 40 mg PO HS 04/28/17 06/03/17 History Cholecalciferol [Vitamin D3] 1,000 unit PO HS 04/28/17 06/03/17 History Clopidogrel [Plavix] 75 mg PO DAILY 04/28/17 06/03/17 History Cranberry Fruit Concentrate 405 mg PO BID 04/28/17 06/03/17 History [Cranberry] Escitalopram [Lexapro] 10 mg PO DAILY 04/28/17 06/03/17 History INSULIN LISPRO (humaLOG) [humaLOG] 34 units SQ AC-TID 04/28/17 06/03/17 History Insulin Detemir [Levemir] 48 unit SQ BID 04/28/17 06/03/17 History Levothyroxine Sodium [Synthroid] 50 mcg PO DAILY 04/28/17 06/03/17 History Linagliptin [Tradjenta] 5 mg PO DAILY 04/28/17 06/03/17 History Loperamide [Imodium] 2 mg PO DIRECTED PRN 04/28/17 06/03/17 History Magnesium Hydroxide [Milk of 30 ml PO DAILY PRN 04/28/17 06/03/17 History Magnesia] Multivitamins, Thera [Multivitamin 1 tab PO DAILY 04/28/17 06/03/17 History (formulary)] Mylanta Suspension 30 ml PO Q4H PRN 04/28/17 06/03/17 History Pioglitazone [Actos] 15 mg PO DAILY 04/28/17 06/03/17 History cycloSPORINE [Restasis] 1 applicator BOTH EYES BID 04/28/17 06/03/17 History Diphenox-Atrop 2.5-0.025 mg 1 tab PO Q6H PRN 06/03/17 06/03/17 History [Lomotil] Allergies Allergy/AdvReac Type Severity Reaction Status Date / Time No Known Allergies Allergy Verified 06/08/17 11:41 Physical Exam Vitals: Vital Signs Temp Pulse Pulse Resp BP BP Pulse Ox 08/02/17 07:22 99 08/02/17 04:00 100.1 F H 94 18 123/63 99 08/02/17 00:00 99.1 F 89 18 123/73 97 08/01/17 22:40 99.1 F 89 16 126/73 08/01/17 21:01 88 20 112/67 97 08/01/17 20:00 101.7 F H 84 18 118/74 98 08/01/17 19:41 85 20 115/70 98 08/01/17 18:49 102.2 F H 84 20 104/62 93 L Intake and Output 08/01/17 08/02/17 08/02/17 22:59 06:59 14:59 Intake Total 233.48 Balance 233.48 Intake: Intake, IV Titration 233.48 Amount Heparin Sodium,Porcine/ 233.48 D5w Pmx 25,000 unit In Dextrose/Water 1 500ml. bag @ 18 UNITS/KG/HR 35. 92 mls/hr IV .[id number] [facility] Rx#:[id number] Other: Voiding Method Diaper # Voids 1 Weight 99.79 kg 93.2 kg PHYSICAL EXAMINATION: HEENT: Head is atraumatic, normocephalic. Pupils equal, round. Neck is supple. There is elevated jugular venous pressure. HEART EXAMINATION: Heart S1, S2 normal. No murmur or gallop heard. CHEST EXAMINATION: Lungs reveal diminished air entry to bilateral bases with rales noted at bilateral bases. ABDOMEN: Soft, nontender. Bowel sounds are heard. No organomegaly noted. EXTREMITIES:[ 2+ peripheral pulses with evidence of peripheral edema , positive right upper arm pain with movement and palpation NEUROLOGIC patient is awake, alert and oriented -3.] . Results 08/02/17 03:30 08/01/17 19:22 Cardiac Enzymes 08/01/17 08/01/17 08/02/17 Range/Units 19:22 19:22 03:30 AST 139 H (17-59) U/L CK-MB (CK-2) 11.9 H* 10.3 H* (0.0-2.4) ng/mL Troponin I 23.100 H* 22.300 H* (0.000-0.034) ng/mL Coagulation 08/01/17 08/02/17 Range/Units 19:22 03:30 PT 12.4 H (9.0-12.0) sec APTT 24.8 82.6 H (22.0-30.0) sec Lipids 08/02/17 Range/Units 03:30 Triglycerides 275 H (<150) mg/dL Cholesterol 131 (<200) mg/dL HDL Cholesterol 30 L (40-60) mg/dL CBC 08/01/17 08/02/17 Range/Units 19:22 03:30 WBC 10.6 10.4 (3.8-10.6) k/uL RBC 3.35 L 3.31 L (4.30-5.90) m/uL Hgb 10.9 L 10.5 L (13.0-17.5) gm/dL Hct 32.6 L 32.4 L (39.0-53.0) % Plt Count 39 L* 38 L* (150-450) k/uL Comprehensive Metabolic Panel 08/01/17 Range/Units 19:22 Sodium 141 (137-145) mmol/L Potassium 5.0 (3.5-5.1) mmol/L Chloride 101 (98-107) mmol/L Carbon Dioxide 28 (22-30) mmol/L BUN 53 H (9-20) mg/dL Creatinine 2.50 H (0.66-1.25) mg/dL Glucose 200 H (74-99) mg/dL Calcium 10.0 (8.4-10.2) mg/dL AST 139 H (17-59) U/L ALT 46 (21-72) U/L Alkaline Phosphatase 47 (38-126) U/L Total Protein 6.7 (6.3-8.2) g/dL Albumin 4.0 (3.5-5.0) g/dL Current Medications Generic Name Dose Route Start Last Admin Trade Name Freq PRN Reason Stop Dose Admin Acetaminophen 650 mg 08/01/17 22:06 08/02/17 05:34 Tylenol Tab PO 650 mg Q4H PRN Administration Pain Al Hydroxide/Mg Hydroxide 30 ml 08/01/17 22:06 Maalox PO Q4H PRN Indigestion Artificial Tears 2 drops 08/01/17 22:06 Artificial Tear Drops BOTH EYES Q4H PRN dry gritty eyes Aspirin 81 mg 08/02/17 09:00 Aspirin PO DAILY [facility] Atorvastatin Calcium 40 mg 08/02/17 21:00 Lipitor PO HS [facility] Carvedilol 3.125 mg 08/02/17 07:30 Coreg PO BID-W/MEALS ROBERTO Cholecalciferol 1,000 unit 08/02/17 21:00 Vitamin D3 PO HS [facility]ERTO Clonazepam 0.5 mg 08/02/17 21:00 Klonopin PO HS [facility] Clopidogrel Bisulfate 75 mg 08/02/17 09:00 Plavix PO DAILY [facility] Cyclosporine 1 drops 08/02/17 09:00 Restasis 0.05% Ophth Soln BOTH EYES BID [facility] Diphenoxylate HCl/Atropine 1 each 08/01/17 22:06 Lomotil PO Q6H PRN Diarrhea Escitalopram Oxalate 10 mg 08/02/17 09:00 Lexapro PO DAILY [facility] Famotidine 20 mg 08/02/17 09:00 Pepcid PO DAILY [facility] Fenofibrate 160 mg 08/02/17 09:00 Lofibra PO DAILY [facility] Gabapentin 300 mg 08/02/17 09:00 Neurontin PO TID [facility] Heparin Sodium (Porcine) 0 unit 08/01/17 21:10 Heparin IV PER PROTOCOL PRN Low PTT Protocol Heparin Sodium/Dextrose 25,000 500 mls @ 35.92 mls/hr 08/01/17 23:48 05:30 unit/ IV Solution IV 16 units/kg/hr .[id number] ROBERTO 31.93 mls/hr Protocol Titration 18 UNITS/KG/HR Levofloxacin 750 mg/ IV 150 mls @ 100 mls/hr 08/02/17 01:00 08/02/17 01:00 Solution IVPB 100 mls/hr Q24H [facility] Administration Insulin Aspart 34 unit 08/02/17 07:30 08/02/17 08:03 Novolog SQ Not Given AC-TID [facility] Insulin Detemir 48 unit 08/02/17 09:00 Levemir SQ BID [facility] Levothyroxine Sodium 50 mcg 08/02/17 06:30 Synthroid PO DAILY@0630 [facility] Linagliptin 5 mg 08/02/17 09:00 Tradjenta PO DAILY [facility] Magnesium Hydroxide 2,400 mg 08/01/17 22:06 Milk Of Magnesia PO DAILY PRN Constipation Multivitamins 1 each 08/02/17 12:00 Theragran PO DAILY@1200 [facility] Nitroglycerin 0.4 mg 08/01/17 22:03 Nitrostat SUBLINGUAL Q5M PRN Chest Pain Pioglitazone HCl 15 mg 08/02/17 09:00 Actos PO DAILY [facility] Senna/Docusate Sodium 1 each 08/01/17 22:06 Senokot-S PO BID PRN Constipation Intake and Output 08/01/17 08/02/17 08/02/17 22:59 06:59 14:59 Intake Total 233.48 Balance 233.48 Intake: Intake, IV Titration 233.48 Amount Heparin Sodium,Porcine/ 233.48 D5w Pmx 25,000 unit In Dextrose/Water 1 500ml. bag @ 18 UNITS/KG/HR 35. 92 mls/hr IV .[id number] [facility] Rx#:[id number] Other: Voiding Method Diaper # Voids 1 Weight 99.79 kg 93.2 kg 08/02/17 03:30 08/01/17 19:22 EKG Interpretations (text) EKG shows normal sinus rhythm with ST-T wave changes in the lateral leads Assessment and Plan Plan: Assessment and plan #1 right arm pain which appears to be musculoskeletal in nature, pain worsens with movement of the arm or on palpation of the upper arm. Shoulder x-ray does not reveal any acute abnormality. #2 elevated CK and troponins, possible acute coronary syndrome, patient denies having any chest discomfort, EKG shows normal sinus rhythm with lateral ST-T wave changes noted. #3 known history of coronary artery disease with prior RCA stent in 2000, subsequently in 2006 patient underwent RCA stent which was unsuccessful with evidence of dissection. #4 hypertension #5Diabetes #6 hyperlipidemia #7 peripheral vascular disease #8 febrile illness, white blood cell count is normal, temperature on admission 102, blood cultures ordered #9 history of thrombocytopenia, platelet count this admission 38 #10 history of CVA #11 anemia #12 acute on chronic renal insufficiency #13 congestive heart failure, LV function unknown, prior echocardiogram with Doppler study performed here in 2015 revealed a normal left ventricular systolic function. Plan Blood cultures have been obtained, we will obtain an echocardiogram with Doppler study. At this time we will also discontinue the patient's Plavix because of the thrombocytopenia, we will start the patient on IV Lasix, monitor intake and output along with daily weights. Continue Lipitor 40 mg daily, Coreg 3.125 mg twice a day. Further recommendations to follow. DNP note has been reviewed, I agree with a documented findings and plan of care. Patient was seen and examined.
[2017-08-02] MEDS: FUROSEMIDE 10 MG/ML 4 ML VIAL IV SCH ×3 (10:26→23:01)
[2017-08-02 10:32] LABS: Troponin I 21.6 ng/mL (0.000-0.034)
[2017-08-02 10:49] LABS: Creatine Kinase MB 8.8 ng/mL (0.0-2.4)
--- NOTE | 2017-08-02 11:04 | P.CNPUL ---
History of Present Illness Consult date: 08/02/17 Reason for consult: dyspnea, hypoxemia, pleural effusion, abnormal CXR/CT Chief complaint: Shortness of breath, myocardial infarction, heart failure History of present illness: Consult dated 08/02/2017 This is a 71-year-old male who was transferred to the residential to be evaluated for complaints of right shoulder pain. Apparently been going on for a day or 2 prior to admission. Very poor historian. Apparently did not have any trauma. His cardiac enzymes are elevated his N-terminal proBNP was quite high his chest x-ray was consistent with heart failure. I suspect he sustained a myocardial infarction. Again the patient is a very poor historian. He was struggling just to be able to eat his breakfast. He has a history of CAD CVA diabetes hyperlipidemia hypertension DJD diabetic retinopathy kidney stones skin cancer cataracts. Multiple surgical procedures including heart catheterization with stent hilar hernia joint replacement bone marrow aspiration and right rotator cuff surgery inguinal hernia repair, etc. He is a former smoker. There is a family history of [place] and bone cancer. Again, the patient is a very poor historian and not much history is obtained from him. Review of Systems A 12 point review of system is positive for mild shortness of breath as well as some shoulder pain. The shoulder pain is what brought him into the hospital. Past Medical History Past Medical History: Coronary Artery Disease (CAD), Cancer, CVA/TIA, Diabetes Mellitus, Eye Disorder, Hyperlipidemia, Hypertension, Osteoarthritis (OA), Prostate Disorder, Skin Disorder Additional Past Medical History / Comment(s): stroke w/residual lt 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 diabetic retinopathy/gets shots in eyes. RLS. KIDNEY STONES X6. PAST FX TO JUSTIN ANKLES, ARMS, WRIST. HX EXC SKIN CA SPOTS ON BACK, HEALING. CATARACT LT EYE. History of Any Multi-Drug Resistant Organisms: None Reported Past Surgical History: Heart Catheterization With Stent, Hernia Repair, Joint Replacement, Orthopedic Surgery Additional Past Surgical History / Comment(s): X3 CARDIAC STENTS. BONE MARROW ASPIRATION 2012. RT ROTATOR CUFF. INGUINAL HERNIA REPAIR. COLONOSCOPY. RT SHOULDER REPLACEMENT. PTCA 1999, CARDIAC STRESS TEST 2010. EXC RT EYE CATARACT 04/2017. Past Anesthesia/Blood Transfusion Reactions: No Reported Reaction Date of Last Stent Placement:: UNSURE Smoking Status: Former smoker - Past Family History Mother Family Medical History: Myocardial Infarction ([place]) Father Family Medical History: Cancer, Myocardial Infarction ([place]) Additional Family Medical History / Comment(s): BONE CANCER Medications and Allergies Home Medications Medication Instructions Recorded Confirmed Type Baclofen 10 mg PO TID@0800,1200,1800 09/10/15 08/02/17 History Fenofibrate [Lofibra] 160 mg PO DAILY 09/10/15 08/02/17 History Gabapentin [Neurontin] 300 mg PO TID@0800,1200,1800 09/10/15 08/02/17 History Aspirin 81 mg PO DAILY chew 10/02/15 08/02/17 Rx Carvedilol [Coreg] 3.125 mg PO BID-W/MEALS tab 10/02/15 08/02/17 Rx Famotidine [Pepcid] 20 mg PO DAILY tab 10/02/15 08/02/17 Rx clonazePAM [KlonoPIN] 0.5 mg PO HS #30 tab 10/02/15 08/02/17 Rx Sennosides-Docusate Sodium 1 tab PO BID PRN 12/04/15 08/02/17 History [Senokot-S] Acetaminophen [Tylenol] 650 mg PO Q4H PRN 04/28/17 08/02/17 History Artificial Tears Ointment 1 applic BOTH EYES QID 04/28/17 08/02/17 History [Lubrifresh Pm Ointment] Artificial Tears-Hypromellose 2 drops BOTH EYES Q4H PRN 04/28/17 08/02/17 History [Artificial Tear Drops] Atorvastatin [Lipitor] 40 mg PO HS 04/28/17 08/02/17 History Cholecalciferol [Vitamin D3] 1,000 unit PO HS 04/28/17 08/02/17 History Clopidogrel [Plavix] 75 mg PO DAILY 04/28/17 08/02/17 History Cranberry Fruit Concentrate 450 mg PO BID 04/28/17 08/02/17 History [Cranberry] Escitalopram [Lexapro] 10 mg PO DAILY 04/28/17 08/02/17 History INSULIN LISPRO (humaLOG) [humaLOG] 34 units SQ AC-TID 04/28/17 08/02/17 History Insulin Detemir [Levemir] 48 unit SQ BID 04/28/17 08/02/17 History Levothyroxine Sodium [Synthroid] 50 mcg PO DAILY 04/28/17 08/02/17 History Linagliptin [Tradjenta] 5 mg PO DAILY 04/28/17 08/02/17 History Loperamide [Imodium] 2 mg PO QID PRN 04/28/17 08/02/17 History Magnesium Hydroxide [Milk of 2,400 mg PO DAILY PRN 04/28/17 08/02/17 History Magnesia] Multivitamins, Thera [Multivitamin 1 tab PO HS 04/28/17 08/02/17 History (formulary)] Mylanta Suspension 30 ml PO Q4H PRN 04/28/17 08/02/17 History Pioglitazone [Actos] 15 mg PO DAILY 04/28/17 08/02/17 History cycloSPORINE [Restasis] 1 drop BOTH EYES BID 04/28/17 08/02/17 History Diphenox-Atrop 2.5-0.025 mg 1 tab PO Q6H PRN 06/03/17 08/02/17 History [Lomotil] Acetaminophen-Codeine 300-30mg 1 tab PO Q6H PRN 08/02/17 08/02/17 History [Tylenol #3] Amoxic-Pot Clav 875-125Mg 1 tab PO Q12HR 08/02/17 08/02/17 History [Augmentin 875-125] Allergies Allergy/AdvReac Type Severity Reaction Status Date / Time No Known Allergies Allergy Verified 08/02/17 09:24 Physical Exam Osteopathic Statement: *. No significant issues noted on an osteopathic structural exam other than those noted in the History and Physical/Consult. Vitals: Vital Signs Temp Pulse Pulse Resp BP BP Pulse Ox 08/02/17 09:24 100.1 F H 64 18 121/64 100 08/02/17 07:22 99 08/02/17 04:00 100.1 F H 94 18 123/63 99 08/02/17 00:00 99.1 F 89 18 123/73 97 08/01/17 22:40 99.1 F 89 16 126/73 08/01/17 21:01 88 20 112/67 97 08/01/17 20:00 101.7 F H 84 18 118/74 98 08/01/17 19:41 85 20 115/70 98 08/01/17 18:49 102.2 F H 84 20 104/62 93 L Intake and Output 08/01/17 08/02/17 08/02/17 22:59 06:59 14:59 Intake Total 233.48 158.586 Balance 233.48 158.586 Intake: Intake, IV Titration 233.48 158.586 Amount Heparin Sodium,Porcine/ 233.48 158.586 D5w Pmx 25,000 unit In Dextrose/Water 1 500ml. bag @ 18 UNITS/KG/HR 35. 92 mls/hr IV .[id number] [facility] Rx#:[id number] Other: Voiding Method Diaper Diaper # Voids 1 Weight 99.79 kg 93.2 kg No acute distress, poor historian, nasal O2 in place. HEENT examination is grossly unremarkable. Mucous membranes are moist. No oral lesions. Neck supple. Full range of motion. No adenopathy thyromegaly or neck vein distention. Cardiovascular examination reveals regular rhythm rate. S1-S2 normal. No S3 or S4. No discernible murmur noted. Lungs reveal mild bibasilar crackles. Breath sounds are equal. Does not take deep breaths. No rhonchi noted. No wheezes noted. Abdomen soft bowel sounds are heard. No masses or tenderness. Extremities are intact. No cyanosis clubbing or edema. Skin is without rash or lesion. Neurologic examination appears to be nonfocal. Results - Laboratory Findings CBC and BMP: 08/02/17 03:30 08/01/17 19:22 PT/INR, D-dimer PT 12.4 sec (9.0-12.0) H 08/01/17 19:22 INR 1.3 (<1.2) H 08/01/17 19:22 D-Dimer 1.38 mg/L FEU (<0.60) H 08/01/17 21:33 Abnormal lab findings: Abnormal Labs 08/01/17 08/01/17 08/01/17 19:22 19:22 19:22 RBC 3.35 L Hgb 10.9 L Hct 32.6 L Plt Count 39 L* Neutrophils # 9.1 H Lymphocytes # 0.7 L PT INR APTT D-Dimer BUN 53 H Creatinine 2.50 H Glucose 200 H POC Glucose (mg/dL) AST 139 H Total Creatine Kinase 483 H CK-MB (CK-2) 11.9 H* Troponin I 23.100 H* Triglycerides HDL Cholesterol Amylase <30 L Urine Protein Urine Glucose (UA) Urine Blood Urine RBC Urine WBC Hyaline Casts Urine Mucus 08/01/17 08/01/17 08/01/17 19:22 19:38 21:33 RBC Hgb Hct Plt Count Neutrophils # Lymphocytes # PT 12.4 H INR 1.3 H APTT D-Dimer 1.38 H BUN Creatinine Glucose POC Glucose (mg/dL) AST Total Creatine Kinase CK-MB (CK-2) Troponin I Triglycerides HDL Cholesterol Amylase Urine Protein 1+ H Urine Glucose (UA) 3+ H Urine Blood Moderate H Urine RBC >182 H Urine WBC 14 H Hyaline Casts 5 H Urine Mucus Rare H 08/02/17 08/02/17 08/02/17 03:30 03:30 03:30 RBC 3.31 L Hgb 10.5 L Hct 32.4 L Plt Count 38 L* Neutrophils # 9.2 H Lymphocytes # 0.5 L PT INR APTT 82.6 H D-Dimer BUN Creatinine Glucose POC Glucose (mg/dL) AST Total Creatine Kinase 463 H CK-MB (CK-2) 10.3 H* Troponin I 22.300 H* Triglycerides HDL Cholesterol Amylase Urine Protein Urine Glucose (UA) Urine Blood Urine RBC Urine WBC Hyaline Casts Urine Mucus 08/02/17 08/02/17 08/02/17 03:30 06:11 09:09 RBC Hgb Hct Plt Count Neutrophils # Lymphocytes # PT INR APTT D-Dimer BUN Creatinine Glucose POC Glucose (mg/dL) 209 H AST Total Creatine Kinase 390 H CK-MB (CK-2) 8.8 H* Troponin I 21.600 H* Triglycerides 275 H HDL Cholesterol 30 L Amylase Urine Protein Urine Glucose (UA) Urine Blood Urine RBC Urine WBC Hyaline Casts Urine Mucus 08/02/17 09:09 RBC Hgb Hct Plt Count Neutrophils # Lymphocytes # PT INR APTT 90.6 H D-Dimer BUN Creatinine Glucose POC Glucose (mg/dL) AST Total Creatine Kinase CK-MB (CK-2) Troponin I Triglycerides HDL Cholesterol Amylase Urine Protein Urine Glucose (UA) Urine Blood Urine RBC Urine WBC Hyaline Casts Urine Mucus - Diagnostic Findings Chest x-ray: image reviewed (Labs x-rays a medications are reviewed. The patient is thrombocytopenic and his renal sufficiency/failure.) Assessment and Plan Assessment: Assessment Rule out myocardial infarction/acute coronary syndrome Congestive heart failure based on the patient's examination, abnormal chest x- ray, an N-terminal proBNP, all likely secondary to myocardial ischemia Rule out non-ST segment elevation myocardial infarction History of right shoulder pain, which may be musculoskeletal or the patient's angina equivalent History of CAD with previous stents History of CVA History of diabetes mellitus History of hyperlipidemia Benign essential hypertension DJD History of skin cancer History of kidney stones History of multiple other medical problems and comorbidities Plan: Plan dated 08/02/2017 The patient is currently being seen by cardiology and the primary service. A ventilation perfusion lung scan was ordered. The chest x-ray with is distinctly abnormal. Hence, the VQ scan is always going to be nondiagnostic. It should not have been ordered in my opinion. Anyway, I suspect the diagnosis is actually an acute coronary syndrome ischemic cardiac disease with heart failure. We'll follow along. Not much more to add at this time. We'll review the medications labs and x-rays. Time with Patient: Greater than 30
[2017-08-02 11:49] LABS: Glucose,Whole Blood 352 mg/dL (75-99)
[2017-08-02] MEDS: HEPARIN SODIUM,PORCINE/D5W PMX 25,000 UNIT in DEXTROSE/WATER 1 500ML.BAG IV SCH (13:38)
[2017-08-02 16:53] LABS: Glucose,Whole Blood 222 mg/dL (75-99)
--- NOTE | 2017-08-02 18:06 | US ---
EXAMINATION TYPE: US extremity nonvasculr ltd RT DATE OF EXAM: 08/02/2017 COMPARISON: NONE CLINICAL HISTORY: R shoulder pain. Poor historian. Nurse said patients pain is at shoulder. Check f or fluid collection per nurse. Area of pain scanned at right upper arm/shoulder. Curvilinear Hypoechoic lesion seen at anterior asia ulder, possible fluid collection = 1.7 x 0.5 cm. Nonspecific hypoechoic curvilinear area is marked by technologist. Impression: As above. No well-formed fluid collection or drainable abscess is seen.
[2017-08-02] MEDS: ATORVASTATIN 80 MG TAB PO SCH (20:55)
[2017-08-02] MEDS: CHOLECALCIFEROL 1,000 UNIT TAB PO SCH (20:55)
[2017-08-02] MEDS: clonazePAM 0.5 MG TAB PO SCH (21:00)
[2017-08-02 21:18] LABS: Glucose,Whole Blood 235 mg/dL (75-99)
--- NOTE | 2017-08-02 23:29 | P.HPIM ---
History of Present Illness H&P Date: 08/02/17 Chief Complaint: Right shoulder pain Mr. Howard is a 71-year-old male with a past medical history of stroke with left- sided hemiplegia, coronary artery disease, hypertension, hyperlipidemia, nephrolithiasis coming From the [facility] living with a chief complaint of right shoulder pain for the past 2-3 days. The patient is a very poor historian and all he talks about is his right shoulder pain that started couple of days back and that he is not able to move his shoulder. Patient denies having any chest pain. No difficulty in breathing. Patient has a very complicated medical history of stroke with left-sided hemiplegia, chronic thrombocytopenia, decubitus ulcers, chronic debility. On review of systems he denies having any complaints of fevers chills or rigors cough. He denies having any abdominal pain nausea vomiting or diarrhea. He denies having any falls. Denies having any hematuria or dysuria. In the ED the patient was found to have elevated troponins in 20s along with a chest x-ray consistent with pulmonary vascular congestion and so she has been started on IV heparin drip even though his platelet counts. He. Patient has no active signs of bleeding currently. Patient was also found to have a fever with T-max of 102.2 at the time of admission but no white count. Patient has been tested negative for influenza. Urinalysis was not obtained and blood cultures were also not ordered. REVIEW OF SYSTEMS : Patient is a very poor historian and on review of systems he was negative for everything except for the ones mentioned above. Past Medical History Past Medical History: Coronary Artery Disease (CAD), Cancer, CVA/TIA, Diabetes Mellitus, Eye Disorder, Hyperlipidemia, Hypertension, Osteoarthritis (OA), Prostate Disorder, Skin Disorder Additional Past Medical History / Comment(s): stroke w/residual lt 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 diabetic retinopathy/gets shots in eyes. RLS. KIDNEY STONES X6. PAST FX TO JUSTIN ANKLES, ARMS, WRIST. HX EXC SKIN CA SPOTS ON BACK, HEALING. CATARACT LT EYE. History of Any Multi-Drug Resistant Organisms: None Reported Past Surgical History: Heart Catheterization With Stent, Hernia Repair, Joint Replacement, Orthopedic Surgery Additional Past Surgical History / Comment(s): X3 CARDIAC STENTS. BONE MARROW ASPIRATION 2012. RT ROTATOR CUFF. INGUINAL HERNIA REPAIR. COLONOSCOPY. RT SHOULDER REPLACEMENT. PTCA 1999, CARDIAC STRESS TEST 2010. EXC RT EYE CATARACT 04/2017. Past Anesthesia/Blood Transfusion Reactions: No Reported Reaction Date of Last Stent Placement:: UNSURE Smoking Status: Former smoker - Past Family History Mother Family Medical History: Myocardial Infarction (NE) Father Family Medical History: Cancer, Myocardial Infarction (NE) Additional Family Medical History / Comment(s): BONE CANCER Medications and Allergies Home Medications Medication Instructions Recorded Confirmed Type Baclofen 10 mg PO TID@0800,1200,1800 09/10/15 08/02/17 History Fenofibrate [Lofibra] 160 mg PO DAILY 09/10/15 08/02/17 History Gabapentin [Neurontin] 300 mg PO TID@0800,1200,1800 09/10/15 08/02/17 History Aspirin 81 mg PO DAILY chew 10/02/15 08/02/17 Rx Carvedilol [Coreg] 3.125 mg PO BID-W/MEALS tab 10/02/15 08/02/17 Rx Famotidine [Pepcid] 20 mg PO DAILY tab 10/02/15 08/02/17 Rx clonazePAM [KlonoPIN] 0.5 mg PO HS #30 tab 10/02/15 08/02/17 Rx Sennosides-Docusate Sodium 1 tab PO BID PRN 12/04/15 08/02/17 History [Senokot-S] Acetaminophen [Tylenol] 650 mg PO Q4H PRN 04/28/17 08/02/17 History Artificial Tears Ointment 1 applic BOTH EYES QID 04/28/17 08/02/17 History [Lubrifresh Pm Ointment] Artificial Tears-Hypromellose 2 drops BOTH EYES Q4H PRN 04/28/17 08/02/17 History [Artificial Tear Drops] Atorvastatin [Lipitor] 40 mg PO HS 04/28/17 08/02/17 History Cholecalciferol [Vitamin D3] 1,000 unit PO HS 04/28/17 08/02/17 History Clopidogrel [Plavix] 75 mg PO DAILY 04/28/17 08/02/17 History Cranberry Fruit Concentrate 450 mg PO BID 04/28/17 08/02/17 History [Cranberry] Escitalopram [Lexapro] 10 mg PO DAILY 04/28/17 08/02/17 History INSULIN LISPRO (humaLOG) [humaLOG] 34 units SQ AC-TID 04/28/17 08/02/17 History Insulin Detemir [Levemir] 48 unit SQ BID 04/28/17 08/02/17 History Levothyroxine Sodium [Synthroid] 50 mcg PO DAILY 04/28/17 08/02/17 History Linagliptin [Tradjenta] 5 mg PO DAILY 04/28/17 08/02/17 History Loperamide [Imodium] 2 mg PO QID PRN 04/28/17 08/02/17 History Magnesium Hydroxide [Milk of 2,400 mg PO DAILY PRN 04/28/17 08/02/17 History Magnesia] Multivitamins, Thera [Multivitamin 1 tab PO HS 04/28/17 08/02/17 History (formulary)] Mylanta Suspension 30 ml PO Q4H PRN 04/28/17 08/02/17 History Pioglitazone [Actos] 15 mg PO DAILY 04/28/17 08/02/17 History cycloSPORINE [Restasis] 1 drop BOTH EYES BID 04/28/17 08/02/17 History Diphenox-Atrop 2.5-0.025 mg 1 tab PO Q6H PRN 06/03/17 08/02/17 History [Lomotil] Acetaminophen-Codeine 300-30mg 1 tab PO Q6H PRN 08/02/17 08/02/17 History [Tylenol #3] Amoxic-Pot Clav 875-125Mg 1 tab PO Q12HR 08/02/17 08/02/17 History [Augmentin 875-125] Allergies Allergy/AdvReac Type Severity Reaction Status Date / Time No Known Allergies Allergy Verified 08/02/17 09:24 Physical Exam Vitals: Vital Signs Temp Pulse Pulse Resp BP BP Pulse Ox 08/02/17 15:32 100.6 F H 95 18 132/47 95 08/02/17 11:15 98.1 F 83 20 103/77 100 08/02/17 09:24 100.1 F H 64 18 121/64 100 08/02/17 07:22 99 08/02/17 04:00 100.1 F H 94 18 123/63 99 08/02/17 00:00 99.1 F 89 18 123/73 97 08/01/17 22:40 99.1 F 89 16 126/73 08/01/17 21:01 88 20 112/67 97 08/01/17 20:00 101.7 F H 84 18 118/74 98 08/01/17 19:41 85 20 115/70 98 08/01/17 18:49 102.2 F H 84 20 104/62 93 L Intake and Output 08/02/17 08/02/17 08/02/17 06:59 14:59 22:59 Intake Total 233.48 247.063 240 Balance 233.48 247.063 240 Intake: Intake, IV Titration 233.48 247.063 Amount Heparin Sodium,Porcine/ 233.48 247.063 D5w Pmx 25,000 unit In Dextrose/Water 1 500ml. bag @ 18 UNITS/KG/HR 35. 92 mls/hr IV .[id number] [facility] Rx#:[id number] Oral 240 Other: Voiding Method Diaper Diaper Diaper # Voids 1 Weight 93.2 kg 93.2 kg GENERAL EXAM GEN. APPEARANCE: in no apparent distress HEAD EXAM: atraumatic, normocephalic, normal inspection EYE EXAM: No pallor or icterus. ENT EXAM: mucous membranes moist NECK EXAM: normal inspection. Absent: tenderness, meningismus RESPIRATORY EXAM: Decreased breath sounds in all lung harris, bilateral crackles at the lower lung harris, no wheezing CARDIOVASCULAR EXAM: regular rate, normal rhythm, normal heart sounds. Absent : systolic murmur, diastolic murmur, rubs, gallop, clicks GI/ABDOMINAL EXAM: soft, normal bowel sounds. Absent: distended, tenderness, guarding, rebound, rigid EXTREMITIES EXAM: Right shoulder- + for tenderness, range of motion is restricted in all directions, mild swelling NEUROLOGICAL EXAM: Oriented to place and name. Left-sided hemiplegia. PSYCHIATRIC EXAM: normal affect, normal mood SKIN EXAM: 2 small stage II ulcers on the coccyx region Results CBC & Chem 7: 08/02/17 03:30 08/01/17 19:22 Labs: Abnormal Lab Results - Last 24 Hours (Table) 08/01/17 08/01/17 08/01/17 Range/Units 19:22 19:22 19:22 RBC 3.35 L (4.30-5.90) m/uL Hgb 10.9 L (13.0-17.5) gm/dL Hct 32.6 L (39.0-53.0) % Plt Count 39 L* (150-450) k/uL Neutrophils # 9.1 H (1.3-7.7) k/uL Lymphocytes # 0.7 L (1.0-4.8) k/uL PT (9.0-12.0) sec INR (<1.2) APTT (22.0-30.0) sec D-Dimer (<0.60) mg/L FEU BUN 53 H (9-20) mg/dL Creatinine 2.50 H (0.66-1.25) mg/dL Glucose 200 H (74-99) mg/dL POC Glucose (mg/dL) (75-99) mg/dL AST 139 H (17-59) U/L Total Creatine Kinase 483 H (55-170) U/L CK-MB (CK-2) 11.9 H* (0.0-2.4) ng/mL Troponin I 23.100 H* (0.000-0.034) ng/mL Triglycerides (<150) mg/dL HDL Cholesterol (40-60) mg/dL Amylase <30 L (30-110) U/L Urine Protein (Negative) Urine Glucose (UA) (Negative) Urine Blood (Negative) Urine RBC (0-5) /hpf Urine WBC (0-5) /hpf Hyaline Casts (0-2) /lpf Urine Mucus (None) /hpf 08/01/17 08/01/17 08/01/17 Range/Units 19:22 19:38 21:33 RBC (4.30-5.90) m/uL Hgb (13.0-17.5) gm/dL Hct (39.0-53.0) % Plt Count (150-450) k/uL Neutrophils # (1.3-7.7) k/uL Lymphocytes # (1.0-4.8) k/uL PT 12.4 H (9.0-12.0) sec INR 1.3 H (<1.2) APTT (22.0-30.0) sec D-Dimer 1.38 H (<0.60) mg/L FEU BUN (9-20) mg/dL Creatinine (0.66-1.25) mg/dL Glucose (74-99) mg/dL POC Glucose (mg/dL) (75-99) mg/dL AST (17-59) U/L Total Creatine Kinase (55-170) U/L CK-MB (CK-2) (0.0-2.4) ng/mL Troponin I (0.000-0.034) ng/mL Triglycerides (<150) mg/dL HDL Cholesterol (40-60) mg/dL Amylase (30-110) U/L Urine Protein 1+ H (Negative) Urine Glucose (UA) 3+ H (Negative) Urine Blood Moderate H (Negative) Urine RBC >182 H (0-5) /hpf Urine WBC 14 H (0-5) /hpf Hyaline Casts 5 H (0-2) /lpf Urine Mucus Rare H (None) /hpf 08/02/17 08/02/17 08/02/17 Range/Units 03:30 03:30 03:30 RBC 3.31 L (4.30-5.90) m/uL Hgb 10.5 L (13.0-17.5) gm/dL Hct 32.4 L (39.0-53.0) % Plt Count 38 L* (150-450) k/uL Neutrophils # 9.2 H (1.3-7.7) k/uL Lymphocytes # 0.5 L (1.0-4.8) k/uL PT (9.0-12.0) sec INR (<1.2) APTT 82.6 H (22.0-30.0) sec D-Dimer (<0.60) mg/L FEU BUN (9-20) mg/dL Creatinine (0.66-1.25) mg/dL Glucose (74-99) mg/dL POC Glucose (mg/dL) (75-99) mg/dL AST (17-59) U/L Total Creatine Kinase 463 H (55-170) U/L CK-MB (CK-2) 10.3 H* (0.0-2.4) ng/mL Troponin I 22.300 H* (0.000-0.034) ng/mL Triglycerides (<150) mg/dL HDL Cholesterol (40-60) mg/dL Amylase (30-110) U/L Urine Protein (Negative) Urine Glucose (UA) (Negative) Urine Blood (Negative) Urine RBC (0-5) /hpf Urine WBC (0-5) /hpf Hyaline Casts (0-2) /lpf Urine Mucus (None) /hpf 08/02/17 08/02/17 08/02/17 Range/Units 03:30 06:11 09:09 RBC (4.30-5.90) m/uL Hgb (13.0-17.5) gm/dL Hct (39.0-53.0) % Plt Count (150-450) k/uL Neutrophils # (1.3-7.7) k/uL Lymphocytes # (1.0-4.8) k/uL PT (9.0-12.0) sec INR (<1.2) APTT (22.0-30.0) sec D-Dimer (<0.60) mg/L FEU BUN (9-20) mg/dL Creatinine (0.66-1.25) mg/dL Glucose (74-99) mg/dL POC Glucose (mg/dL) 209 H (75-99) mg/dL AST (17-59) U/L Total Creatine Kinase 390 H (55-170) U/L CK-MB (CK-2) 8.8 H* (0.0-2.4) ng/mL Troponin I 21.600 H* (0.000-0.034) ng/mL Triglycerides 275 H (<150) mg/dL HDL Cholesterol 30 L (40-60) mg/dL Amylase (30-110) U/L Urine Protein (Negative) Urine Glucose (UA) (Negative) Urine Blood (Negative) Urine RBC (0-5) /hpf Urine WBC (0-5) /hpf Hyaline Casts (0-2) /lpf Urine Mucus (None) /hpf 08/02/17 08/02/17 Range/Units 09:09 11:36 RBC (4.30-5.90) m/uL Hgb (13.0-17.5) gm/dL Hct (39.0-53.0) % Plt Count (150-450) k/uL Neutrophils # (1.3-7.7) k/uL Lymphocytes # (1.0-4.8) k/uL PT (9.0-12.0) sec INR (<1.2) APTT 90.6 H (22.0-30.0) sec D-Dimer (<0.60) mg/L FEU BUN (9-20) mg/dL Creatinine (0.66-1.25) mg/dL Glucose (74-99) mg/dL POC Glucose (mg/dL) 352 H (75-99) mg/dL AST (17-59) U/L Total Creatine Kinase (55-170) U/L CK-MB (CK-2) (0.0-2.4) ng/mL Troponin I (0.000-0.034) ng/mL Triglycerides (<150) mg/dL HDL Cholesterol (40-60) mg/dL Amylase (30-110) U/L Urine Protein (Negative) Urine Glucose (UA) (Negative) Urine Blood (Negative) Urine RBC (0-5) /hpf Urine WBC (0-5) /hpf Hyaline Casts (0-2) /lpf Urine Mucus (None) /hpf Thrombosis Risk Factor Assmnt - Choose All That Apply Each Risk Factor Represents 2 Points: Age 61-74 years Thrombosis Risk Factor Assessment Total Risk Factor Score: 2 Thrombosis Risk Factor Assessment Level: Low Risk Assessment and Plan Assessment: ASSESSMENT 1. Right shoulder pain- x-rays reviewed showing antibiotic implant in place- unclear if he has an active infection going on at that site which can give him fevers. So infectious disease consult has been placed 2. Fever- unclear source-might be his right shoulder versus lung versus bladder infection- will obtain blood cultures, urine analysis and an ultrasound of the right shoulder 3. Elevated troponins possibly acute coronary syndrome patient has been started on IV heparin cardiology on board and following the patient 4. Chronic thrombocytopenia- no active signs of bleeding 5. History of coronary artery disease status post stenting 6. Essential hypertension 7. Type 2 diabetes mellitus 8. History of stroke with left-sided hemiplegia. Acute on chronic kidney injury 9. H/o nephrolithiasis 10. History of skin cancer PLAN : Will obtain urinalysis and blood cultures and an ultrasound of the right shoulder. In view of his elevated troponins he would be continued on IV heparin for 48 hours but will watch for any active signs of bleeding in view of his low platelet count. He also had a VQ scan that was indeterminate for PE. We'll resume patient's home medications. Overall prognosis is very poor due to chronic medical comorbidities. Patient is a DO NOT RESUSCITATE.
[2017-08-03] MEDS: LEVOFLOXACIN 750MG-D5W PMX 750 MG in DEXTROSE/WATER 1 150ML.BAG IVPB SCH (01:30)
[2017-08-03 03:46] LABS: Glucose,Whole Blood 226 mg/dL (75-99)
[2017-08-03 06:25] LABS: Glucose,Whole Blood 251 mg/dL (75-99)
[2017-08-03] MEDS: INSULIN ASPART 100 UNIT/ML 1 ML 10 ML VIAL SQ SCH ×3 (06:56→17:02)
[2017-08-03] MEDS: CARVEDILOL 3.125 MG TAB PO SCH ×2 (06:56→15:54)
[2017-08-03] MEDS: LEVOTHYROXINE 50 MCG TAB PO SCH (06:56)
[2017-08-03 07:02] LABS: Basophils % (A) 0 %; Eosinophils % (A) 1 %; HCT 24.1 % (39.0-53.0); Lymphocytes # (A) 0.3 k/uL (1.0-4.8); Lymphocytes % (A) 5 %; MCH 32.9 pg (25.0-35.0); MCHC 33.7 g/dL (31.0-37.0); MCV 97.6 fL (80.0-100.0); Mean Platelet Volume 8.8; Monocytes # (A) 0.4 k/uL (0-1.0); Monocytes % (A) 6 %; Neutrophils # (A) 5.7 k/uL (1.3-7.7); Neutrophils % (A) 87 %; RBC 2.47 m/uL (4.30-5.90); WBC 6.6 k/uL (3.8-10.6)
[2017-08-03 07:11] LABS: HGB 8.1 gm/dL (13.0-17.5)
[2017-08-03] MEDS: HEPARIN SODIUM,PORCINE/D5W PMX 25,000 UNIT in DEXTROSE/WATER 1 500ML.BAG IV SCH (07:26)
[2017-08-03 07:39] LABS: Albumin 3.2 g/dL (3.5-5.0); Calcium 9.1 mg/dL (8.4-10.2); Potassium 4.2 mmol/L (3.5-5.1); Total Bilirubin 1.1 mg/dL (0.2-1.3); Total Protein 5.6 g/dL (6.3-8.2)
[2017-08-03 07:53] LABS: Anisocytosis (M) Present; Hypochromasia (M) Present; Poikilocytosis (M) Present
[2017-08-03 07:54] LABS: Platelet Count 47 k/uL (150-450)
[2017-08-03] MEDS: FUROSEMIDE 10 MG/ML 4 ML VIAL IV SCH ×2 (07:57→17:00)
[2017-08-03] MEDS: PIOGLITAZONE 15 MG TAB PO SCH (07:57)
[2017-08-03] MEDS: MULTIVITAMINS, THERA 1 EACH TAB PO SCH (07:57)
[2017-08-03] MEDS: ESCITALOPRAM 10 MG TAB PO SCH (07:57)
[2017-08-03] MEDS: FENOFIBRATE 160 MG TAB PO SCH (07:57)
[2017-08-03] MEDS: ASPIRIN 81 MG PO SCH (07:57)
[2017-08-03] MEDS: GABAPENTIN 300 MG CAP PO SCH ×3 (07:57→21:23)
[2017-08-03] MEDS: FAMOTIDINE 20 MG TAB PO SCH (07:57)
[2017-08-03] MEDS: cycloSPORINE 0.05% OPHTH 0.4 ML DROPERETTE BOTH EYES SCH ×2 (07:57→23:08)
[2017-08-03] MEDS: INSULIN DETEMIR 100 UNIT/ML 10 ML VIAL SQ SCH ×2 (07:57→21:22)
[2017-08-03] MEDS: LINAGLIPTIN 5 MG TABLET PO SCH (07:58)
[2017-08-03] MEDS ORDERED: VANCOMYCIN IV PER PHARMACY 1 EACH MISC MISCELLANE PRN (09:08)
--- NOTE | 2017-08-03 09:53 | US ---
EXAMINATION TYPE: US venous doppler duplex UE RT DATE OF EXAM: 08/03/2017 COMPARISON: NONE CLINICAL HISTORY: swelling; discoloration. SIDE PERFORMED: Right Patient unable to cooperate with examiner, unable to adduct arm, severe edema in right arm with exten sive pain and bruising. Right Arm: The right internal jugular vein appears to be diminutive or possibly nonexistent. There is limited evaluation of the upper extremity veins on the right. There are visualized portions of the subclavian vein showed color flow, vascular waveforms, portion of the axillary and brachial ve ins also thought to be patent. Portion of the radial artery may be patent. Grayscale, color doppler, spectral doppler imaging performed of the deep veins of the upper extremiti es. IMPRESSION: Exam is markedly limited.
[2017-08-03] MEDS ORDERED: VANCOMYCIN 1,500 MG in SODIUM CHLORIDE 0.9% 250 ML IVPB ONE (10:00)
--- NOTE | 2017-08-03 10:01 | ECHOF ---
Referral Reason:assess lvf MEASUREMENTS -------- HEIGHT: 170.2 cm WEIGHT: 93.0 kg BP: 121/64 IVSd: 1.4 cm (0.6 - 1.1) LVIDd: 4.9 cm (3.9 - 5.3) LVPWd: 1.4 cm (0.6 - 1.1) IVSs: 1.8 cm LVIDs: 2.7 cm LVPWs: 1.7 cm LAESV Index (A-L): 26.84 ml/m Ao Diam: 3.5 cm (2.0 - 3.7) AV Cusp: 1.4 cm (1.5 - 2.6) LA Diam: 3.7 cm (2.7 - 3.8) MV E Luis: 1.03 m/s MV DecT: 236 ms MV A Luis: 1.21 m/s MV E/A Ratio: 0.84 RAP: 5.00 mmHg RVSP: 10.14 mmHg FINDINGS -------- Sinus rhythm. This was a technically difficult study with suboptimal views. The left ventricular size is normal. There is mild concentric left ventricular hypertrophy. Overa ll left ventricular systolic function is severely impaired with, an EF between 20 - 25 %. Basal Seg ments Fransico only. The RV was not well visualized. Normal LA size by volume 22+/-6 ml/m2. The right atrium is normal in size. 3ml of Lumason was utilized for enhancement of images. There is mild aortic valve sclerosis. There is no evidence of aortic regurgitation. There is no e vidence of aortic stenosis. The mitral valve leaflets are mildly thickened. Mild mitral annular calcification present. Mild m itral regurgitation is present. Trace tricuspid regurgitation present. Right ventricular systolic pressure is normal at < 35 mmHg. There is no evidence of pulmonary hypertension. The pulmonic valve was not well visualized. The aortic root size is normal. Normal inferior vena cava with normal inspiratory collapse consistent with estimated right atrial pre ssure of 5 mmHg. There is no pericardial effusion. CONCLUSIONS -------- 1. Sinus rhythm. 2. This was a technically difficult study with suboptimal views. 3. The left ventricular size is normal. 4. There is mild concentric left ventricular hypertrophy. 5. Overall left ventricular systolic function is severely impaired with, an EF between 20 - 25 %. 6. Basal Segments Fransico only. 7. The RV was not well visualized. 8. Normal LA size by volume 22+/-6 ml/m2. 9. 3ml of Lumason was utilized for enhancement of images. 10. There is mild aortic valve sclerosis. 11. The mitral valve leaflets are mildly thickened. 12. Mild mitral annular calcification present. 13. Mild mitral regurgitation is present. 14. Trace tricuspid regurgitation present. 15. Right ventricular systolic pressure is normal at < 35 mmHg. 16. There is no evidence of pulmonary hypertension. 17. The pulmonic valve was not well visualized. 18. The aortic root size is normal. 19. There is no pericardial effusion. DENTAL MECHANIC: Samir Schofield RDCS
--- NOTE | 2017-08-03 10:18 | P.PN ---
Subjective Progress Note Date: 08/03/17 Principal diagnosis: Acute dyspnea, related to non-ST elevated PR and congestive heart failure, unspecified Consult dated 08/02/2017 This is a 71-year-old male who was transferred to the [facility] to be evaluated for complaints of right shoulder pain. Apparently been going on for a day or 2 prior to admission. Very poor historian. Apparently did not have any trauma. His cardiac enzymes are elevated his N-terminal proBNP was quite high his chest x-ray was consistent with heart failure. I suspect he sustained a myocardial infarction. Again the patient is a very poor historian. He was struggling just to be able to eat his breakfast. He has a history of CAD CVA diabetes hyperlipidemia hypertension DJD diabetic retinopathy kidney stones skin cancer cataracts. Multiple surgical procedures including heart catheterization with stent hilar hernia joint replacement bone marrow aspiration and right rotator cuff surgery inguinal hernia repair, etc. He is a former smoker. There is a family history of PR and bone cancer. Again, the patient is a very poor historian and not much history is obtained from him On 08/03/2017 patient seen in follow-up. Appears weak and lethargic on today's exam, but is arousable to verbal stimuli. Denies any acute dyspnea, denies any chest pain. His heparin drip has been discontinued, his platelet count is down to 47,000 today. Patient was noted to have increased swelling in his right arm. Right lower extremity Doppler has been ordered. His left arm was previously swollen, and patient has left-sided weakness from previous stroke. Patient's renal profile is worsening, with BUN up to 82, and creatinine up to 2.64. Patient remains on IV Lasix for his congestive heart failure. On room air with a pulse ox at 97%. Lung sounds are clear, diminished at the bases, respirations are even and nonlabored. Patient was febrile, with a fever up to 102F early this morning. He remains on Levaquin, and vancomycin was added per ID service. Blood cultures were collected and sent. Objective - Vital Signs Vital signs: Vital Signs Temp 97.2 F L 08/03/17 07:57 Pulse 94 08/03/17 07:57 Resp 20 08/03/17 07:57 BP 109/59 08/03/17 07:57 Pulse Ox 97 08/03/17 07:57 Intake & Output 08/02/17 08/03/17 08/03/17 18:59 06:59 18:59 Intake Total 487.063 Balance 487.063 Weight 93.2 kg 93 kg Intake: Intake, IV Titration 247.063 Amount Heparin Sodium,Porcine/ 247.063 D5w Pmx 25,000 unit In Dextrose/Water 1 500ml. bag @ 18 UNITS/KG/HR 35. 92 mls/hr IV .[id number] [facility] Rx#:[id number] Oral 240 Other: Voiding Method Diaper Diaper Diaper # Voids 2 - Exam GENERAL EXAM: Lethargic, pale, 71-year-old obese white male, arousable to verbal stimuli, in no apparent distress. HEAD: Normocephalic/atraumatic. EYES: Normal reaction of pupils, equal size. Conjunctiva pink, sclera white. NOSE: Clear with pink turbinates. THROAT: No erythema or exudates. NECK: No masses, no JVD, no thyroid enlargement, no adenopathy. CHEST: No chest wall deformity. Symmetrical expansion. LUNGS: Equal air entry with no crackles, wheeze, rhonchi or dullness. Diminished breath sounds at the bases CVS: Regular rate and rhythm, normal S1 and S2, no gallops, no murmurs, no rubs ABDOMEN: Soft, nontender. No hepatosplenomegaly, normal bowel sounds, no guarding or rigidity. EXTREMITIES: Patient is noted to have worsening edema in the right arm, former IV site in the right antecubital is noted to be echymotic, right arm ultrasound was ordered. Patient has left sided chronic hemiparesis due to history of CVA, his chronic contractures of the left hand MUSCULOSKELETAL: Muscle strength and tone normal, left sided hemiparesis due to history of CVA SPINE: No scoliosis or deformity SKIN: No rashes CENTRAL NERVOUS SYSTEM: Alert and oriented -3. Left-sided hemiparesis, with left hand chronic contractures PSYCHIATRIC: Alert and oriented -3. Appropriate affect. Intact judgment and insight. - Labs CBC & Chem 7: 08/03/17 06:30 08/03/17 06:30 Labs: Abnormal Lab Results - Last 24 Hours (Table) 08/02/17 08/02/17 08/02/17 Range/Units 09:09 11:36 16:39 RBC (4.30-5.90) m/uL Hgb (13.0-17.5) gm/dL Hct (39.0-53.0) % Plt Count (150-450) k/uL Lymphocytes # (1.0-4.8) k/uL APTT (22.0-30.0) sec Sodium (137-145) mmol/L Chloride (98-107) mmol/L BUN (9-20) mg/dL Creatinine (0.66-1.25) mg/dL Glucose (74-99) mg/dL POC Glucose (mg/dL) 352 H 222 H (75-99) mg/dL AST (17-59) U/L Total Creatine Kinase 390 H (55-170) U/L CK-MB (CK-2) 8.8 H* (0.0-2.4) ng/mL Troponin I 21.600 H* (0.000-0.034) ng/mL Total Protein (6.3-8.2) g/dL Albumin (3.5-5.0) g/dL 08/02/17 08/02/17 08/03/17 Range/Units 17:37 21:16 03:25 RBC (4.30-5.90) m/uL Hgb (13.0-17.5) gm/dL Hct (39.0-53.0) % Plt Count (150-450) k/uL Lymphocytes # (1.0-4.8) k/uL APTT 52.1 H (22.0-30.0) sec Sodium (137-145) mmol/L Chloride (98-107) mmol/L BUN (9-20) mg/dL Creatinine (0.66-1.25) mg/dL Glucose (74-99) mg/dL POC Glucose (mg/dL) 235 H 226 H (75-99) mg/dL AST (17-59) U/L Total Creatine Kinase (55-170) U/L CK-MB (CK-2) (0.0-2.4) ng/mL Troponin I (0.000-0.034) ng/mL Total Protein (6.3-8.2) g/dL Albumin (3.5-5.0) g/dL 08/03/17 08/03/17 08/03/17 Range/Units 06:21 06:30 06:30 RBC 2.47 L (4.30-5.90) m/uL Hgb 8.1 L D (13.0-17.5) gm/dL Hct 24.1 L (39.0-53.0) % Plt Count 47 L* (150-450) k/uL Lymphocytes # 0.3 L (1.0-4.8) k/uL APTT 54.5 H (22.0-30.0) sec Sodium (137-145) mmol/L Chloride (98-107) mmol/L BUN (9-20) mg/dL Creatinine (0.66-1.25) mg/dL Glucose (74-99) mg/dL POC Glucose (mg/dL) 251 H (75-99) mg/dL AST (17-59) U/L Total Creatine Kinase (55-170) U/L CK-MB (CK-2) (0.0-2.4) ng/mL Troponin I (0.000-0.034) ng/mL Total Protein (6.3-8.2) g/dL Albumin (3.5-5.0) g/dL 08/03/17 Range/Units 06:30 RBC (4.30-5.90) m/uL Hgb (13.0-17.5) gm/dL Hct (39.0-53.0) % Plt Count (150-450) k/uL Lymphocytes # (1.0-4.8) k/uL APTT (22.0-30.0) sec Sodium 134 L (137-145) mmol/L Chloride 97 L (98-107) mmol/L BUN 82 H* (9-20) mg/dL Creatinine 2.64 H (0.66-1.25) mg/dL Glucose 214 H (74-99) mg/dL POC Glucose (mg/dL) (75-99) mg/dL AST 85 H (17-59) U/L Total Creatine Kinase (55-170) U/L CK-MB (CK-2) (0.0-2.4) ng/mL Troponin I (0.000-0.034) ng/mL Total Protein 5.6 L (6.3-8.2) g/dL Albumin 3.2 L (3.5-5.0) g/dL Microbiology - Last 24 Hours (Table) 08/02/17 17:37 Blood Culture Gram Stain - Preliminary Blood 08/02/17 17:37 Blood Culture - Final Blood Assessment and Plan Plan: Assessment: Dyspnea secondary to acute congestive heart failure, unspecified, LV function is unknown. Non-ST segment elevation myocardial infarction History of right shoulder pain, which may be musculoskeletal or the patient's angina equivalent History of CAD with previous stents History of CVA History of diabetes mellitus History of hyperlipidemia Benign essential hypertension DJD History of skin cancer History of kidney stones History of multiple other medical problems and comorbidities Plan: Patient is having intermittent febrile episodes, blood cultures were collected and sent, patient's is on Levaquin, vancomycin was added, ID service is on the case. Denies any acute dyspnea, patient overall appears weak and lethargic on today's exam, there is increased swelling noted in the right upper extremity, ultrasound of the right upper extremity was ordered. Heparin and Plavix were discontinued related to patient's thrombocytopenia. cardiology is managing IV diuresis. I performed a history & physical examination of the patient and discussed their management with my nurse practitioner, Peggy Guy. I reviewed the nurse practitioner's note and agree with the documented findings and plan of care. Lung sounds are clear, diminished at the bases. The findings and the impression was discussed with the patient. I attest to the documentation by the nurse practitioner. Time with Patient: Less than 30
[2017-08-03] MEDS: ACETAMINOPHEN TAB 325 MG TAB PO PRN (10:47)
[2017-08-03 11:34] LABS: Glucose,Whole Blood 193 mg/dL (75-99)
--- NOTE | 2017-08-03 13:44 | P.GSCN ---
History of Present Illness History of present illness: 71-year-old white male, patient has been admitted with a right shoulder pain for 3 days duration patient had a ultrasound of the right arm OF DVT patient had some IV started on his right cubital fossa which infiltrated and causes some skin necrosis and blister formation did patient also has a history of low platelets count most likely patient had infiltration for IV in the right cubital fossa. There is some swelling noted noticed her right arm. Brachial radial ulnar while by the Doppler patient had a CVA affecting left side in the past. Patient also gives a history of right shoulder surgery in the past Medical history history of coronary artery disease history of 4 low platelets count history of for right shoulder surgery in the past Neck examination neck is supple no bruit appreciated Chest clear few crackles the lung bases Abdomen soft nontender vascular examination brachial radial pulse present on the left side of the right side patient has a Doppler signal of the brachial artery radial artery and ulnar artery is marked swelling of the right upper arm most likely due to fluid infiltration and there is some skin necrosis noted toward the right cubital fossa and with some blister formation Plan is we will place Silvadene cream to the right forearm 2 pillow elevation follow with you thank you Past Medical History Past Medical History: Coronary Artery Disease (CAD), Cancer, CVA/TIA, Diabetes Mellitus, Eye Disorder, Hyperlipidemia, Hypertension, Osteoarthritis (OA), Prostate Disorder, Skin Disorder Additional Past Medical History / Comment(s): stroke w/residual lt 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 diabetic retinopathy/gets shots in eyes. RLS. KIDNEY STONES X6. PAST FX TO JUSTIN ANKLES, ARMS, WRIST. HX EXC SKIN CA SPOTS ON BACK, HEALING. CATARACT LT EYE. History of Any Multi-Drug Resistant Organisms: None Reported Past Surgical History: Heart Catheterization With Stent, Hernia Repair, Joint Replacement, Orthopedic Surgery Additional Past Surgical History / Comment(s): X3 CARDIAC STENTS. BONE MARROW ASPIRATION 2012. RT ROTATOR CUFF. INGUINAL HERNIA REPAIR. COLONOSCOPY. RT SHOULDER REPLACEMENT. PTCA 1999, CARDIAC STRESS TEST 2010. EXC RT EYE CATARACT 04/2017. Past Anesthesia/Blood Transfusion Reactions: No Reported Reaction Date of Last Stent Placement:: UNSURE Smoking Status: Former smoker - Past Family History Mother Family Medical History: Myocardial Infarction (HI) Father Family Medical History: Cancer, Myocardial Infarction (HI) Additional Family Medical History / Comment(s): BONE CANCER Medications and Allergies Home Medications Medication Instructions Recorded Confirmed Type Baclofen 10 mg PO TID@0800,1200,1800 09/10/15 08/02/17 History Fenofibrate [Lofibra] 160 mg PO DAILY 09/10/15 08/02/17 History Gabapentin [Neurontin] 300 mg PO TID@0800,1200,1800 09/10/15 08/02/17 History Aspirin 81 mg PO DAILY chew 10/02/15 08/02/17 Rx Carvedilol [Coreg] 3.125 mg PO BID-W/MEALS tab 10/02/15 08/02/17 Rx Famotidine [Pepcid] 20 mg PO DAILY tab 10/02/15 08/02/17 Rx clonazePAM [KlonoPIN] 0.5 mg PO HS #30 tab 10/02/15 08/02/17 Rx Sennosides-Docusate Sodium 1 tab PO BID PRN 12/04/15 08/02/17 History [Senokot-S] Acetaminophen [Tylenol] 650 mg PO Q4H PRN 04/28/17 08/02/17 History Artificial Tears Ointment 1 applic BOTH EYES QID 04/28/17 08/02/17 History [Lubrifresh Pm Ointment] Artificial Tears-Hypromellose 2 drops BOTH EYES Q4H PRN 04/28/17 08/02/17 History [Artificial Tear Drops] Atorvastatin [Lipitor] 40 mg PO HS 04/28/17 08/02/17 History Cholecalciferol [Vitamin D3] 1,000 unit PO HS 04/28/17 08/02/17 History Clopidogrel [Plavix] 75 mg PO DAILY 04/28/17 08/02/17 History Cranberry Fruit Concentrate 450 mg PO BID 04/28/17 08/02/17 History [Cranberry] Escitalopram [Lexapro] 10 mg PO DAILY 04/28/17 08/02/17 History INSULIN LISPRO (humaLOG) [humaLOG] 34 units SQ AC-TID 04/28/17 08/02/17 History Insulin Detemir [Levemir] 48 unit SQ BID 04/28/17 08/02/17 History Levothyroxine Sodium [Synthroid] 50 mcg PO DAILY 04/28/17 08/02/17 History Linagliptin [Tradjenta] 5 mg PO DAILY 04/28/17 08/02/17 History Loperamide [Imodium] 2 mg PO QID PRN 04/28/17 08/02/17 History Magnesium Hydroxide [Milk of 2,400 mg PO DAILY PRN 04/28/17 08/02/17 History Magnesia] Multivitamins, Thera [Multivitamin 1 tab PO HS 04/28/17 08/02/17 History (formulary)] Mylanta Suspension 30 ml PO Q4H PRN 04/28/17 08/02/17 History Pioglitazone [Actos] 15 mg PO DAILY 04/28/17 08/02/17 History cycloSPORINE [Restasis] 1 drop BOTH EYES BID 04/28/17 08/02/17 History Diphenox-Atrop 2.5-0.025 mg 1 tab PO Q6H PRN 06/03/17 08/02/17 History [Lomotil] Acetaminophen-Codeine 300-30mg 1 tab PO Q6H PRN 08/02/17 08/02/17 History [Tylenol #3] Amoxic-Pot Clav 875-125Mg 1 tab PO Q12HR 08/02/17 08/02/17 History [Augmentin 875-125] Allergies Allergy/AdvReac Type Severity Reaction Status Date / Time No Known Allergies Allergy Verified 08/02/17 09:24 Surgical - Exam Vital Signs Temp Pulse Resp BP Pulse Ox 102.2 F H 84 20 104/62 93 L 08/01/17 18:49 08/01/17 18:49 08/01/17 18:49 08/01/17 18:49 08/01/17 18:49 Results - Labs 08/03/17 06:30 08/03/17 06:30 Abnormal Lab Results - Last 24 Hours (Table) 08/02/17 08/02/17 08/02/17 Range/Units 16:39 17:37 21:16 RBC (4.30-5.90) m/uL Hgb (13.0-17.5) gm/dL Hct (39.0-53.0) % Plt Count (150-450) k/uL Lymphocytes # (1.0-4.8) k/uL APTT 52.1 H (22.0-30.0) sec Sodium (137-145) mmol/L Chloride (98-107) mmol/L BUN (9-20) mg/dL Creatinine (0.66-1.25) mg/dL Glucose (74-99) mg/dL POC Glucose (mg/dL) 222 H 235 H (75-99) mg/dL AST (17-59) U/L Total Protein (6.3-8.2) g/dL Albumin (3.5-5.0) g/dL 08/03/17 08/03/17 08/03/17 Range/Units 03:25 06:21 06:30 RBC 2.47 L (4.30-5.90) m/uL Hgb 8.1 L D (13.0-17.5) gm/dL Hct 24.1 L (39.0-53.0) % Plt Count 47 L* (150-450) k/uL Lymphocytes # 0.3 L (1.0-4.8) k/uL APTT (22.0-30.0) sec Sodium (137-145) mmol/L Chloride (98-107) mmol/L BUN (9-20) mg/dL Creatinine (0.66-1.25) mg/dL Glucose (74-99) mg/dL POC Glucose (mg/dL) 226 H 251 H (75-99) mg/dL AST (17-59) U/L Total Protein (6.3-8.2) g/dL Albumin (3.5-5.0) g/dL 08/03/17 08/03/17 08/03/17 Range/Units 06:30 06:30 11:32 RBC (4.30-5.90) m/uL Hgb (13.0-17.5) gm/dL Hct (39.0-53.0) % Plt Count (150-450) k/uL Lymphocytes # (1.0-4.8) k/uL APTT 54.5 H (22.0-30.0) sec Sodium 134 L (137-145) mmol/L Chloride 97 L (98-107) mmol/L BUN 82 H* (9-20) mg/dL Creatinine 2.64 H (0.66-1.25) mg/dL Glucose 214 H (74-99) mg/dL POC Glucose (mg/dL) 193 H (75-99) mg/dL AST 85 H (17-59) U/L Total Protein 5.6 L (6.3-8.2) g/dL Albumin 3.2 L (3.5-5.0) g/dL Microbiology - Last 24 Hours (Table) 08/02/17 18:04 Blood Culture - Final Blood 08/02/17 18:04 Blood Culture Gram Stain - Preliminary Blood 08/02/17 17:37 Blood Culture Gram Stain - Preliminary Blood 08/02/17 17:37 Blood Culture - Final Blood Diabetes panel 08/03/17 Range/Units 06:30 Sodium 134 L (137-145) mmol/L Potassium 4.2 (3.5-5.1) mmol/L Chloride 97 L (98-107) mmol/L Carbon Dioxide 23 (22-30) mmol/L BUN 82 H* (9-20) mg/dL Creatinine 2.64 H (0.66-1.25) mg/dL Glucose 214 H (74-99) mg/dL Calcium 9.1 (8.4-10.2) mg/dL AST 85 H (17-59) U/L ALT 50 (21-72) U/L Alkaline Phosphatase 53 (38-126) U/L Total Protein 5.6 L (6.3-8.2) g/dL Albumin 3.2 L (3.5-5.0) g/dL Calcium panel 08/03/17 Range/Units 06:30 Calcium 9.1 (8.4-10.2) mg/dL Albumin 3.2 L (3.5-5.0) g/dL Pituitary panel 08/03/17 Range/Units 06:30 Sodium 134 L (137-145) mmol/L Potassium 4.2 (3.5-5.1) mmol/L Chloride 97 L (98-107) mmol/L Carbon Dioxide 23 (22-30) mmol/L BUN 82 H* (9-20) mg/dL Creatinine 2.64 H (0.66-1.25) mg/dL Glucose 214 H (74-99) mg/dL Calcium 9.1 (8.4-10.2) mg/dL Adrenal panel 08/03/17 Range/Units 06:30 Sodium 134 L (137-145) mmol/L Potassium 4.2 (3.5-5.1) mmol/L Chloride 97 L (98-107) mmol/L Carbon Dioxide 23 (22-30) mmol/L BUN 82 H* (9-20) mg/dL Creatinine 2.64 H (0.66-1.25) mg/dL Glucose 214 H (74-99) mg/dL Calcium 9.1 (8.4-10.2) mg/dL Total Bilirubin 1.1 (0.2-1.3) mg/dL AST 85 H (17-59) U/L ALT 50 (21-72) U/L Alkaline Phosphatase 53 (38-126) U/L Total Protein 5.6 L (6.3-8.2) g/dL Albumin 3.2 L (3.5-5.0) g/dL
--- NOTE | 2017-08-03 15:15 | CONS ---
CONSULTATION DATE OF SERVICE: 08/03/2017. REASON FOR CONSULTATION: Fever. HISTORY OF PRESENT ILLNESS: The patient is a 71-year-old male who is a intermediate resident, has been brought into the ER at [facility] on 08/01/2017 for evaluation of right shoulder pain. Apparently the pain started a day or two prior to presentation to the hospital. There is no history of any trauma. Patient did have a complicated history of right shoulder joint replacement that subsequently got infected and has been antibiotic for a long time. This history was provided by the son, however, is not sure which type of infection it was that incision is currently healed the patient pain into the right shoulder is more of a dull aching pain impression is number thank 4 with the patient did have an IV in the right antecubital 4th with the place while he came to the ER the area became more hard and swollen and some bluish discoloration yesterday, so the RN removed the IV and placed it on either side. Subsequently, he was noticed to have the right thumb getting colder with some discoloration to the hand area. The patient has been on Levaquin. He did have blood cultures done which came back positive for gram-positive cocci. Infectious Disease was consulted for further recommendation regarding antibiotic therapy. Most of the information has been obtained from the chart, talking to the son as the patient currently not a very good historian. REVIEW OF SYSTEMS: Could not be reliably obtained but the positive points as mentioned in HPI. PAST MEDICAL HISTORY: Significant for infected right shoulder, did have excoriated disease, CVA, TIA, diabetes mellitus, hypertension, hyperlipidemia, osteoarthritis, skin cancer, prostate disorder. PAST SURGICAL HISTORY: PTCA with stent, hernia repair, right shoulder replacement, rotator cuff repair, hernia repair, colonoscopy. SOCIAL HISTORY: Remote history of smoking, no drinking or drug use. FAMILY HISTORY: Mother with history of OH. Father history of wound cancer and OH. ALLERGIES: No known drug allergies. MEDICATIONS: Include the patient is currently on Tylenol, Maalox, , aspirin, Lipitor, Coreg, vitamin D3, , Restasis, Lomotil, Lexapro, Pepcid, Senna, Lasix, Neurontin, heparin, Levemir, Levaquin, Synthroid, Tradjenta, Milk of Magnesia, Nitrostat, Senokot. PHYSICAL EXAMINATION: Blood pressure was 90/59, pulse of 94, temperature 97 to 102. He is 97% on room air. General description is an elderly male, lying in bed in no distress. No tachypnea or accessory muscles for respiration use. HEENT EXAMINATION: Shows pallor, no scleral icterus. Oral mucosa is dry. No erythema, thrush. NECK: Trachea central, no thyromegaly. LUNGS: Unlabored breathing, clear to auscultation anteriorly. No wheeze or crackles. HEART: S1, S2. Regular rate and rhythm. ABDOMEN: Soft, no tenderness. No guarding. No rigidity. EXTREMITIES: No edema of the feet. Examination of the wrist, mild palpable, examination of the right arm, the antecubital is discolored, cold, right hand with some discoloration. NEUROLOGICAL: Patient is awake, alert, oriented x1, mood and affect normal. LABS: Hemoglobin of 8.1, white count 6.6, BUN of 82, creatinine 0.64. Blood culture with gram-positive cocci. DIAGNOSTIC IMPRESSION/PLAN: 1. Patient with fever with sepsis. Patient who did have features of sepsis and so far guidelines in a patient who did have fever of 102 degrees Fahrenheit. He did have a platelet count of 47. Source is likely right arm IV site infection with secondary cellulitis and likely ischemic arm with gram-positive bacteremia likely a methicillin-resistant Staphylococcus aureus infection. 2. Patient who does have a cooperative condition of diabetes mellitus. 3. Renal insufficiency with high risk of nephrotoxicity from the vancomycin. PLAN: 1. Blood cultures have been repeated stat. 2. Stat consult to the vascular surgeon for evaluation and discussed in detail with Dr. Hutson on the phone. 3. He did receive a dose of vancomycin; however, will switch him over to daptomycin 3 mg/kg 48. 4. Depending upon the clinical response as well as cultures, will adjust medication further if needed. Son was present at bedside, his questions were answered. MMODL / IJN: [id number] /
--- NOTE | 2017-08-03 16:57 | P.PN ---
Subjective Progress Note Date: 08/03/17 This is a 71-year-old gentleman who follows with Dr. Mejia in the office. He has known history of hypertension, hyperlipidemia, prior CVA 4 , homicidal ischemia, permanent pacemaker implantation, patient also has a known history of coronary artery disease with prior stent placement of the RCA in 2000 subsequent to that patient had stenting of the RCA in 2006 with dissection history also of peripheral vascular disease, currently resides at an extended care facility. Patient presented to the hospital on this occasion with symptoms of sudden onset of severe right upper arm pain, he denies any chest discomfort or difficulty in breathing. EKG on arrival here showed a normal sinus rhythm with lateral ST-T wave changes noted. Chest x-ray showed moderate congestive heart failure. Right shoulder x-ray was performed which did not reveal any acute abnormality. Temperature on arrival here 102.2, subsequent temperatures 101.7, 99, 100.1. Blood pressure 120/60 with a heart rate in the 60s, 100% on 2 L of oxygen. Laboratory data, white blood cell count is normal, hemoglobin 10 5, platelet count 38, BUN 53, creatinine 2.5, potassium 5.0. Troponin on admission 23.1, subsequent troponin 22. CK 43, 463 , MB 11.9 and 10.3. BNP level 19,300.Influenza A and B are negative. At the time of my examination this morning, patient continues to complain of pain in that right arm, denies any shortness of breath but appears to have mild difficulty in breathing while lying flat. 08/03/2017 Patient seen and examined this morning, seemed to deteriorate significantly through the night last night, significant swelling and discoloration of his right arm, Dr. Hutson has been consulted. Echo cardiac gram with Doppler study was performed which revealed an ejection fraction of 20-25%. Patient is a no code, we'll continue at this time with maximum medical therapy including aspirin 81 mg daily, Lipitor 40 mg daily, Coreg 3.125 mg twice a day, we'll discontinue the IV Lasix. Objective - Vital Signs Vital signs: Vital Signs Temp 100.6 F H 08/03/17 15:15 Pulse 90 08/03/17 15:15 Resp 18 08/03/17 15:15 BP 109/54 08/03/17 15:15 Pulse Ox 99 08/03/17 15:15 Intake & Output 08/02/17 08/03/17 08/03/17 18:59 06:59 18:59 Intake Total 487.063 350 Balance 487.063 350 Weight 93.2 kg 93 kg Intake: Intake, IV Titration 247.063 250 Amount Heparin Sodium,Porcine/ 247.063 D5w Pmx 25,000 unit In Dextrose/Water 1 500ml. bag @ 18 UNITS/KG/HR 35. 92 mls/hr IV .[id number] [facility] Rx#:[id number] Vancomycin 1,500 mg In 250 Sodium Chloride 0.9% 250 ml @ 125 mls/hr IVPB ONCE ONE Rx#:[id number] Oral 240 100 Other: Voiding Method Diaper Diaper Diaper # Voids 2 - Exam PHYSICAL EXAMINATION: HEENT: Head is atraumatic, normocephalic. Pupils equal, round. Neck is supple. There is elevated jugular venous pressure. HEART EXAMINATION: Heart S1, S2 normal. No murmur or gallop heard. CHEST EXAMINATION: Lungs reveal diminished air entry to bilateral bases with rales noted at bilateral bases. ABDOMEN: Soft, nontender. Bowel sounds are heard. No organomegaly noted. EXTREMITIES:[ 2+ peripheral pulses with evidence of peripheral edema , positive right upper arm pain significant swelling and ecchymosis small ulcerated areas NEUROLOGIC patient is awake, alert and oriented -3.] - Labs CBC & Chem 7: 08/03/17 06:30 08/03/17 06:30 Labs: Abnormal Lab Results - Last 24 Hours (Table) 08/02/17 08/02/17 08/03/17 Range/Units 17:37 21:16 03:25 RBC (4.30-5.90) m/uL Hgb (13.0-17.5) gm/dL Hct (39.0-53.0) % Plt Count (150-450) k/uL Lymphocytes # (1.0-4.8) k/uL APTT 52.1 H (22.0-30.0) sec Sodium (137-145) mmol/L Chloride (98-107) mmol/L BUN (9-20) mg/dL Creatinine (0.66-1.25) mg/dL Glucose (74-99) mg/dL POC Glucose (mg/dL) 235 H 226 H (75-99) mg/dL AST (17-59) U/L Total Protein (6.3-8.2) g/dL Albumin (3.5-5.0) g/dL 08/03/17 08/03/17 08/03/17 Range/Units 06:21 06:30 06:30 RBC 2.47 L (4.30-5.90) m/uL Hgb 8.1 L D (13.0-17.5) gm/dL Hct 24.1 L (39.0-53.0) % Plt Count 47 L* (150-450) k/uL Lymphocytes # 0.3 L (1.0-4.8) k/uL APTT 54.5 H (22.0-30.0) sec Sodium (137-145) mmol/L Chloride (98-107) mmol/L BUN (9-20) mg/dL Creatinine (0.66-1.25) mg/dL Glucose (74-99) mg/dL POC Glucose (mg/dL) 251 H (75-99) mg/dL AST (17-59) U/L Total Protein (6.3-8.2) g/dL Albumin (3.5-5.0) g/dL 08/03/17 08/03/17 Range/Units 06:30 11:32 RBC (4.30-5.90) m/uL Hgb (13.0-17.5) gm/dL Hct (39.0-53.0) % Plt Count (150-450) k/uL Lymphocytes # (1.0-4.8) k/uL APTT (22.0-30.0) sec Sodium 134 L (137-145) mmol/L Chloride 97 L (98-107) mmol/L BUN 82 H* (9-20) mg/dL Creatinine 2.64 H (0.66-1.25) mg/dL Glucose 214 H (74-99) mg/dL POC Glucose (mg/dL) 193 H (75-99) mg/dL AST 85 H (17-59) U/L Total Protein 5.6 L (6.3-8.2) g/dL Albumin 3.2 L (3.5-5.0) g/dL Microbiology - Last 24 Hours (Table) 08/02/17 17:37 Blood Culture Gram Stain - Preliminary Blood 08/02/17 18:04 Blood Culture Gram Stain - Preliminary Blood 08/02/17 18:04 Blood Culture - Final Blood 08/02/17 17:37 Blood Culture - Final Blood Assessment and Plan Plan: Assessment and plan #1 right arm pain which appears to be musculoskeletal in nature, pain worsens with movement of the arm or on palpation of the upper arm. Shoulder x-ray does not reveal any acute abnormality. #2 elevated CK and troponins, possible acute coronary syndrome, patient denies having any chest discomfort, EKG shows normal sinus rhythm with lateral ST-T wave changes noted. #3 known history of coronary artery disease with prior RCA stent in 2000, subsequently in 2006 patient underwent RCA stent which was unsuccessful with evidence of dissection. #4 hypertension #5Diabetes #6 hyperlipidemia #7 peripheral vascular disease #8 febrile illness, white blood cell count is normal, temperature on admission 102, blood cultures ordered #9 history of thrombocytopenia, platelet count this admission 38 #10 history of CVA #11 anemia #12 acute on chronic renal insufficiency #13 congestive heart failure, LV function unknown, prior echocardiogram with Doppler study performed here in 2015 revealed a normal left ventricular systolic function. Plan Echocardiogram with Doppler study revealed a severely reduced LV function, we' ll continue the patient on his current medications, discontinue IV Lasix. Overall prognosis is guarded. DNP note has been reviewed, I agree with a documented findings and plan of care. Patient was seen and examined.
[2017-08-03 17:03] LABS: Glucose,Whole Blood 174 mg/dL (75-99)
[2017-08-03] MEDS: ACETAMINOPHEN SUPPOSITORY 650 MG SUPP RECTAL PRN (17:04)
[2017-08-03 21:12] LABS: Glucose,Whole Blood 146 mg/dL (75-99)
[2017-08-03] MEDS: clonazePAM 0.5 MG TAB PO SCH (21:23)
[2017-08-03] MEDS: ATORVASTATIN 80 MG TAB PO SCH (21:23)
[2017-08-03] MEDS: CHOLECALCIFEROL 1,000 UNIT TAB PO SCH (21:23)
[2017-08-04] MEDS ORDERED: DAPTOmycin 500 MG in SODIUM CHLORIDE 0.9% 50 ML IVPB SCH ×2
[2017-08-04 03:48] LABS: Basophils % (A) 0 %; Eosinophils # (A) 0.1 k/uL (0-0.7); Eosinophils % (A) 1 %; HCT 21.4 % (39.0-53.0); HGB 7.2 gm/dL (13.0-17.5); Lymphocytes # (A) 0.4 k/uL (1.0-4.8); Lymphocytes % (A) 7 %; MCH 31.6 pg (25.0-35.0); MCHC 33.6 g/dL (31.0-37.0); MCV 94.1 fL (80.0-100.0); Mean Platelet Volume 9.5; Monocytes # (A) 0.4 k/uL (0-1.0); Monocytes % (A) 7 %; Neutrophils # (A) 4.5 k/uL (1.3-7.7); Neutrophils % (A) 82 %; RBC 2.27 m/uL (4.30-5.90); WBC 5.6 k/uL (3.8-10.6)
[2017-08-04 04:02] LABS: Platelet Count 54 k/uL (150-450)
[2017-08-04 04:34] LABS: Calcium 9.4 mg/dL (8.4-10.2); Potassium 3.8 mmol/L (3.5-5.1)
[2017-08-04] MEDS: ACETAMINOPHEN IV (For NPO) 1,000 MG in EMPTY BAG 1 BAG IVPB PRN ×2 (05:38→22:30)
[2017-08-04 07:08] LABS: Glucose,Whole Blood 218 mg/dL (75-99)
--- NOTE | 2017-08-04 08:06 | P.PN ---
Subjective Progress Note Date: 08/04/17 Principal diagnosis: Congestive heart failure Progress note dated 08/04/2017 71-year-old male with a history of congestive heart failure, non-ST segment elevation myocardial infarction right shoulder pain CAD CVA diabetes mellitus hyperlipidemia essential hypertension DJD skin cancer kidney stones and multiple other medical problems. The patient was transferred from the sixth floor to the ICU as an ICU overflow. I was not notified as to why the patient was transferred or how the patient was transferred to the ICU. I have one of my charge nurse is working on that at this time. The patient somewhat lethargic. The patient is not receiving any supplemental oxygen. There is no IVs. I was told that somehow the administrative charge was 100 transfer the patient to the ICU. I believe that was a overflow patient to overflow patient transfer. The patient does apparently have positive blood cultures for presumptive methicillin-resistant staph aureus dated August 02. This is a new finding. Also, his cardiac enzymes were quite elevated. The patient is a no code patient. Objective - Vital Signs Vital signs: Vital Signs Temp 100.3 F H 08/04/17 04:00 Pulse 100 08/04/17 04:00 Resp 22 08/04/17 04:00 BP 103/61 08/04/17 04:00 Pulse Ox 95 08/04/17 04:00 Intake & Output 08/03/17 08/04/17 08/04/17 18:59 06:59 18:59 Intake Total 350 Balance 350 Weight 91.2 kg Intake: Intake, IV Titration 250 Amount Vancomycin 1,500 mg In 250 Sodium Chloride 0.9% 250 ml @ 125 mls/hr IVPB ONCE ONE Rx#:[id number] Oral 100 Other: Voiding Method Diaper Diaper Incontinent # Voids 3 1 # Bowel Movements 0 - Exam No acute distress, The patient is lethargic. No supplemental oxygen. HEENT examination is grossly unremarkable. Mucous membranes are moist. No oral lesions. Neck supple. Full range of motion. No adenopathy thyromegaly or neck vein distention. Cardiovascular examination reveals regular rhythm rate. S1-S2 normal. No S3 or S4. No discernible murmur noted. Heart sounds are distant. Lungs reveal mild coarse rhonchi. Breath sounds are equal bilaterally. There are diminished throughout. A few scattered crackles are noted. No wheezes.. Abdomen soft bowel sounds are heard. No masses or tenderness. Extremities are intact. No cyanosis clubbing or edema. Skin is without rash or lesion. Neurologic examination is brief but nonfocal. - Labs CBC & Chem 7: 08/04/17 03:26 08/04/17 03:26 Labs: Abnormal Lab Results - Last 24 Hours (Table) 08/03/17 08/03/17 08/03/17 Range/Units 06:30 11:32 17:01 RBC (4.30-5.90) m/uL Hgb (13.0-17.5) gm/dL Hct (39.0-53.0) % Plt Count (150-450) k/uL Lymphocytes # (1.0-4.8) k/uL Sodium 134 L (137-145) mmol/L Chloride 97 L (98-107) mmol/L BUN 82 H* (9-20) mg/dL Creatinine 2.64 H (0.66-1.25) mg/dL Glucose 214 H (74-99) mg/dL POC Glucose (mg/dL) 193 H 174 H (75-99) mg/dL AST 85 H (17-59) U/L Total Protein 5.6 L (6.3-8.2) g/dL Albumin 3.2 L (3.5-5.0) g/dL 08/03/17 08/04/17 08/04/17 Range/Units 21:11 03:26 03:26 RBC 2.27 L (4.30-5.90) m/uL Hgb 7.2 L (13.0-17.5) gm/dL Hct 21.4 L (39.0-53.0) % Plt Count 54 L (150-450) k/uL Lymphocytes # 0.4 L (1.0-4.8) k/uL Sodium (137-145) mmol/L Chloride (98-107) mmol/L BUN 91 H* (9-20) mg/dL Creatinine 2.80 H (0.66-1.25) mg/dL Glucose 163 H (74-99) mg/dL POC Glucose (mg/dL) 146 H (75-99) mg/dL AST (17-59) U/L Total Protein (6.3-8.2) g/dL Albumin (3.5-5.0) g/dL 05/02/18 Range/Units 07:06 RBC (4.30-5.90) m/uL Hgb (13.0-17.5) gm/dL Hct (39.0-53.0) % Plt Count (150-450) k/uL Lymphocytes # (1.0-4.8) k/uL Sodium (137-145) mmol/L Chloride (98-107) mmol/L BUN (9-20) mg/dL Creatinine (0.66-1.25) mg/dL Glucose (74-99) mg/dL POC Glucose (mg/dL) 218 H (75-99) mg/dL AST (17-59) U/L Total Protein (6.3-8.2) g/dL Albumin (3.5-5.0) g/dL Microbiology - Last 24 Hours (Table) 08/03/17 09:17 Blood Culture - Final Blood 08/02/17 18:04 Blood Culture Gram Stain - Preliminary Blood Blood Culture - Preliminary Presumptive MRSA 08/02/17 17:37 Blood Culture Gram Stain - Preliminary Blood Blood Culture - Preliminary Presumptive MRSA 08/02/17 18:04 Blood Culture - Final Blood 08/02/17 17:37 Blood Culture - Final Blood Assessment and Plan Assessment: Assessment Rule out myocardial infarction/acute coronary syndrome Presumptive sepsis secondary to MRSA Congestive heart failure based on the patient's examination, abnormal chest x- ray, an N-terminal proBNP, all likely secondary to myocardial ischemia Rule out non-ST segment elevation myocardial infarction History of right shoulder pain, which may be musculoskeletal or the patient's angina equivalent History of CAD with previous stents History of CVA History of diabetes mellitus History of hyperlipidemia Benign essential hypertension DJD History of skin cancer History of kidney stones History of multiple other medical problems and comorbidities Plan: Plan dated 08/02/2017 The patient is currently being seen by cardiology and the primary service. A ventilation perfusion lung scan was ordered. The chest x-ray with is distinctly abnormal. Hence, the VQ scan is always going to be nondiagnostic. It should not have been ordered in my opinion. Anyway, I suspect the diagnosis is actually an acute coronary syndrome ischemic cardiac disease with heart failure. We'll follow along. Not much more to add at this time. We'll review the medications labs and x-rays. Plan dated 08/04/2017 The patient was transferred from the sixth floor to the ICU last night. Again I was not notified of the transfer. I'm sure exactly how the patient got here. Currently the patient is being treated for acute congestive heart failure non- ST segment elevation myocardial infarction and presumptive MRSA sepsis. Additional recommendations and suggestions are forthcoming. Prognosis is poor. The patient is not receiving any supplemental oxygen or supplemental IVs. Meds labs and x-rays are all reviewed. He is a no code patient. Critical care time 32 minutes Time with Patient: Greater than 30
[2017-08-04] MEDS ORDERED: VANCOMYCIN 1,500 MG in SODIUM CHLORIDE 0.9% 250 ML IVPB ONE (09:00)
[2017-08-04] MEDS: INSULIN ASPART 100 UNIT/ML 1 ML 10 ML VIAL SQ SCH ×3 (09:06→16:49)
[2017-08-04] MEDS: CARVEDILOL 3.125 MG TAB PO SCH ×2 (09:07→16:51)
[2017-08-04] MEDS: PIOGLITAZONE 15 MG TAB PO SCH (09:07)
[2017-08-04] MEDS: LINAGLIPTIN 5 MG TABLET PO SCH (09:07)
[2017-08-04] MEDS: LEVOTHYROXINE 50 MCG TAB PO SCH (09:07)
[2017-08-04] MEDS: cycloSPORINE 0.05% OPHTH 0.4 ML DROPERETTE BOTH EYES SCH ×2 (09:08→22:31)
[2017-08-04] MEDS: ARTIFICIAL TEARS-HYPROMELLOSE DROPS 15 ML BTL BOTH EYES PRN (09:08)
[2017-08-04] MEDS: INSULIN DETEMIR 100 UNIT/ML 10 ML VIAL SQ SCH ×2 (09:10→22:30)
--- NOTE | 2017-08-04 10:39 | P.PN ---
Subjective Progress Note Date: 08/03/17 Principal diagnosis: Sepsis Mr. Howard is a 71-year-old male with a past medical history of stroke with left- sided hemiplegia, coronary artery disease, hypertension, hyperlipidemia, nephrolithiasis coming from the [facility] with a chief complaint of right shoulder pain for the past 2-3 days. The patient is a very poor historian and all he states was about is his right shoulder pain that started couple of days back and that he is not able to move his shoulder. Patient has a very complicated medical history of stroke with left-sided hemiplegia, chronic thrombocytopenia, decubitus ulcers, chronic debility. In the ED the patient was found to have elevated troponins in 20s along with a chest x-ray consistent with pulmonary vascular congestion and so she has been started on IV heparin drip even though his platelet counts. He. Patient has no active signs of bleeding currently. Patient was also found to have a fever with T-max of 102.2 at the time of admission but no white count. Patient has been tested negative for influenza. On 08/03/17 - Pt is lying in the bed and c/o right shoulder pain. REVIEW OF SYSTEMS : Patient is a very poor historian and on review of systems he was negative for Chest pain, palpitations, difficulty in breathing. He denies having any hematuria or dysuria. Patient denies having any fevers chills or rigors. Patient denies having any abdominal pain nausea vomiting or diarrhea. Patient denies having any bleeding per rectum or blood in the stool. Objective - Vital Signs Vital signs: Vital Signs Temp 99.2 F 08/03/17 21:54 Pulse 86 08/03/17 21:54 Resp 20 08/03/17 21:54 BP 96/57 08/03/17 21:54 Pulse Ox 98 08/03/17 21:54 Intake & Output 08/03/17 08/03/17 08/04/17 06:59 18:59 06:59 Intake Total 350 Balance 350 Weight 93 kg Intake: Intake, IV Titration 250 Amount Vancomycin 1,500 mg In 250 Sodium Chloride 0.9% 250 ml @ 125 mls/hr IVPB ONCE ONE Rx#:[id number] Oral 100 Other: Voiding Method Diaper Diaper Diaper Incontinent # Voids 2 3 1 # Bowel Movements 0 - Exam GEN. APPEARANCE: in no apparent distress HEAD EXAM: atraumatic, normocephalic, normal inspection EYE EXAM: No pallor or icterus. ENT EXAM: mucous membranes moist NECK EXAM: normal inspection. Absent: tenderness, meningismus RESPIRATORY EXAM: Decreased breath sounds in all lung harris, bilateral crackles at the lower lung harris, no wheezing CARDIOVASCULAR EXAM: regular rate, normal rhythm, normal heart sounds. Absent : systolic murmur, diastolic murmur, rubs, gallop, clicks GI/ABDOMINAL EXAM: soft, normal bowel sounds. Absent: distended, tenderness, guarding, rebound, rigid EXTREMITIES EXAM: Right shoulder- + for tenderness, range of motion is restricted in all directions, mild swelling NEUROLOGICAL EXAM: Oriented to place and name. Left-sided hemiplegia. PSYCHIATRIC EXAM: normal affect, normal mood SKIN EXAM: 2 small stage II ulcers on the coccyx region - Labs CBC & Chem 7: 08/03/17 06:30 08/03/17 06:30 Labs: Abnormal Lab Results - Last 24 Hours (Table) 08/03/17 08/03/17 08/03/17 Range/Units 03:25 06:21 06:30 RBC 2.47 L (4.30-5.90) m/uL Hgb 8.1 L D (13.0-17.5) gm/dL Hct 24.1 L (39.0-53.0) % Plt Count 47 L* (150-450) k/uL Lymphocytes # 0.3 L (1.0-4.8) k/uL APTT (22.0-30.0) sec Sodium (137-145) mmol/L Chloride (98-107) mmol/L BUN (9-20) mg/dL Creatinine (0.66-1.25) mg/dL Glucose (74-99) mg/dL POC Glucose (mg/dL) 226 H 251 H (75-99) mg/dL AST (17-59) U/L Total Protein (6.3-8.2) g/dL Albumin (3.5-5.0) g/dL 08/03/17 08/03/17 08/03/17 Range/Units 06:30 06:30 11:32 RBC (4.30-5.90) m/uL Hgb (13.0-17.5) gm/dL Hct (39.0-53.0) % Plt Count (150-450) k/uL Lymphocytes # (1.0-4.8) k/uL APTT 54.5 H (22.0-30.0) sec Sodium 134 L (137-145) mmol/L Chloride 97 L (98-107) mmol/L BUN 82 H* (9-20) mg/dL Creatinine 2.64 H (0.66-1.25) mg/dL Glucose 214 H (74-99) mg/dL POC Glucose (mg/dL) 193 H (75-99) mg/dL AST 85 H (17-59) U/L Total Protein 5.6 L (6.3-8.2) g/dL Albumin 3.2 L (3.5-5.0) g/dL 08/03/17 08/03/17 Range/Units 17:01 21:11 RBC (4.30-5.90) m/uL Hgb (13.0-17.5) gm/dL Hct (39.0-53.0) % Plt Count (150-450) k/uL Lymphocytes # (1.0-4.8) k/uL APTT (22.0-30.0) sec Sodium (137-145) mmol/L Chloride (98-107) mmol/L BUN (9-20) mg/dL Creatinine (0.66-1.25) mg/dL Glucose (74-99) mg/dL POC Glucose (mg/dL) 174 H 146 H (75-99) mg/dL AST (17-59) U/L Total Protein (6.3-8.2) g/dL Albumin (3.5-5.0) g/dL Microbiology - Last 24 Hours (Table) 08/02/17 18:04 Blood Culture Gram Stain - Preliminary Blood Blood Culture - Preliminary Presumptive MRSA 08/02/17 17:37 Blood Culture Gram Stain - Preliminary Blood Blood Culture - Preliminary Presumptive MRSA 08/02/17 18:04 Blood Culture - Final Blood 08/02/17 17:37 Blood Culture - Final Blood Assessment and Plan Assessment: ASSESSMENT 1. Sepsis - source of infection is the right arm IV site - Id Dr. Mendiola evaluated the pt and started him on Daptomycin for presumptive MRSA in Blood cultures. 2.Right shoulder pain- x-rays reviewed showing antibiotic implant in place 3. NSTEMI - Pt was on Heparin drip 4. Chronic thrombocytopenia- no active signs of bleeding 5. History of coronary artery disease status post stenting 6. Essential hypertension 7. Type 2 diabetes mellitus 8. History of stroke with left-sided hemiplegia. 9. Acute on chronic kidney injury 9. H/o nephrolithiasis 10. History of skin cancer 11. Chronic systolic Heart failure EF - 20-25 % on Echo done today PLAN r. In view of his elevated troponins he would be continued on IV jessi, but will watch for any active signs of bleeding in view of his low platelet count. He also had a VQ scan that was indeterminate for PE. Blood Cx positive for ?MRSA - pt was started on Daptomycin in view of his ANTONIA . Will c/w the rest of his medication regimen . Overall prognosis is very poor due to chronic medical comorbidities. Patient is a DO NOT RESUSCITATE.
[2017-08-04] MEDS: FENOFIBRATE 160 MG TAB PO SCH (12:27)
[2017-08-04] MEDS: ESCITALOPRAM 10 MG TAB PO SCH (12:27)
[2017-08-04] MEDS: FAMOTIDINE 20 MG TAB PO SCH (12:27)
[2017-08-04] MEDS: ASPIRIN 81 MG PO SCH (12:27)
[2017-08-04] MEDS: MULTIVITAMINS, THERA 1 EACH TAB PO SCH (12:28)
[2017-08-04] MEDS: GABAPENTIN 300 MG CAP PO SCH ×3 (12:28→22:33)
[2017-08-04 12:32] LABS: Glucose,Whole Blood 325 mg/dL (75-99)
--- NOTE | 2017-08-04 12:43 | CT ---
EXAMINATION TYPE: CT upper extremity RT wo con DATE OF EXAM: 08/04/2017 COMPARISON: NONE HISTORY: Redness, swelling and tenderness to right elbow CT DLP: 1087.2 mGycm Automated exposure control for dose reduction was used. Unenhanced CT of the right upper extremity was performed from the right axilla to the mid right forea rm. FINDINGS: Subcutaneous fluid and edema noted throughout the imaged field. Muscular edema noted as well. Several foci of air identified within the ventral soft tissues of the antecubital fossa may reflect recent p rocedure/venous access versus tear producing infection. I do not see evidence for a drainable abscess at this time. The lack of contrast does limit evaluation. Osseous structures are intact without evidence for bony destructive process. No evidence for fracture . IMPRESSION: Moderate subcutaneous edema and fluid. Intramuscular edema noted as well. No drainable abscess. Sever al foci of air within the soft tissues may reflect recent procedure. Underlying air producing infecti on not excluded.
--- NOTE | 2017-08-04 12:45 | PN ---
PROGRESS NOTE DATE OF SERVICE: 08/04/2017 REASON FOR FOLLOWUP: MRSA bacteremia, source is likely right arm cellulitis and a question of sepsis. INTERVAL HISTORY: The patient has been transferred to the ICU as the [facility] overflow because of MRSA positive culture and need for evaluation. Patient has been running low-grade fever with 100.7 last night and 100.3 this morning. The patient is hemodynamically stable. Not on any pressor support. The right arm still has some swelling and some discoloration. Minimal drainage. Denies having any chest pain. No cough. No abdominal pain. No diarrhea. Not a very good historian, though. PHYSICAL EXAMINATION: Blood pressure 103/61, pulse of 100, temperature 100.3, he is 95% on room air. General description is an elderly male, lying in bed in no distress. RESPIRATORY SYSTEM: Unlabored breathing, clear to auscultation anteriorly. HEART: S1, S2. Regular rate and rhythm. ABDOMEN: Soft, no tenderness. Right antecubital fossa with some discoloration, has some swelling, minimal redness, no drainage. LABS: Hemoglobin 7.8, white count of 5.2, BUN of 91, creatinine 2.80. DIAGNOSTIC IMPRESSION AND PLAN: Patient with methicillin-resistant Staphylococcus aureus bacteremia, source is likely right antecubital fossa IV site infection with question of possible underlying abscess. The patient was evaluated by Vascular Surgery yesterday with no concern for vascular compromise with blood culture coming positive from 08/03. Will go ahead repeat a blood culture, will obtain a CT of the right upper extremity with no contrast to make sure evidence of any abscess collection that may need to be drained. Continue with daptomycin, dose should be adjusted to q. hour in view of his creatinine clearance. Discussed with Pharmacy. Continue supportive care. MMODL / IJN: [id number] /
--- NOTE | 2017-08-04 15:28 | CDI ---
Last Revision, March 2017 Documentation Clarification Form Date: 08/04/2017 3:26:00 PM From: Jeanine FriedmanMusaSTU, CCDS Admit Date: 08/01/2017 10:06:00 PM Patient Name: Robert Rai Visit Number: [id number] Discharge Date: ATTENTION: The Clinical Documentation Specialists (CDI) and [facility] Coding Staff appreciate your assistance in clarifying documentation. Please respond to the clarification below the line at the bottom and electronically sign. The CDI & [facility] Coding staff will review the response and follow-up if needed. Please note: Queries are made part of the Legal Health Record. If you have any questions, please contact the author of this message via ITS. Dr. Bing Almodovar: 71 yo male, admitted with right shoulder pain via EMS from assisted. Diagnosed with right shoulder pain, has abx implant in place, possible infection. Fever, elevated troponins, possible ACS. Per the 08/03 Infectios Disease consult: 1. Patient with fever with sepsis. Patient who did have features of sepsis and so far guidelines in a patient who did have fever of 102 degrees Fahrenheit. He did have a platelet count of 47. Source is likely right arm IV site infection with secondary cellulitis and likely ischemic arm with gram-positive bacteremia likely a methicillin- resistant Staphylococcus aureus infection. Per 08/04 Attending PN: Sepsis, source of infection is the right arm IV site & NSTEMI. Please clarify in your progress notes and discharge summary as to whether Sepsis and IV site as source was: Y = Yes, the condition was present at the time of the order for inpatient admission. N = No, the condition was not present at the time of the order for inpatient admission. W = Clinically undetermined if the condition was present at the time of the order for inpatient admission. Please continue to document in your progress notes and discharge summary in order to capture severity of illness and risk of mortality. Include clinical findings that support your diagnosis. MTDD
[2017-08-04 16:49] LABS: Glucose,Whole Blood 444 mg/dL (75-99)
[2017-08-04 18:13] LABS: Glucose,Whole Blood 445 mg/dL (75-99)
[2017-08-04] MEDS ORDERED: INSULIN ASPART 100 UNIT/ML 1 ML 10 ML VIAL SQ ONE (18:18)
[2017-08-04 19:49] LABS: Glucose,Whole Blood 331 mg/dL (75-99)
[2017-08-04] MEDS: LEVOFLOXACIN 750 MG TAB PO SCH (22:31)
[2017-08-04] MEDS: CHOLECALCIFEROL 1,000 UNIT TAB PO SCH (22:31)
[2017-08-04] MEDS: clonazePAM 0.5 MG TAB PO SCH (22:35)
[2017-08-05] MEDS ORDERED: DAPTOmycin 500 MG in SODIUM CHLORIDE 0.9% 50 ML IVPB SCH ×2
[2017-08-05 06:23] LABS: Basophils % (A) 0 %; Eosinophils # (A) 0.1 k/uL (0-0.7); Eosinophils % (A) 1 %; HCT 21.5 % (39.0-53.0); HGB 7.5 gm/dL (13.0-17.5); Lymphocytes # (A) 0.7 k/uL (1.0-4.8); Lymphocytes % (A) 10 %; MCH 32.2 pg (25.0-35.0); MCHC 34.8 g/dL (31.0-37.0); MCV 92.4 fL (80.0-100.0); Mean Platelet Volume 9.3; Monocytes # (A) 0.5 k/uL (0-1.0); Monocytes % (A) 7 %; Neutrophils # (A) 5.4 k/uL (1.3-7.7); Neutrophils % (A) 77 %; Poikilocytosis Slight; RBC 2.32 m/uL (4.30-5.90); RDW 13.3 % (11.5-15.5)
[2017-08-05 06:27] LABS: Platelet Count 50 k/uL (150-450)
[2017-08-05 06:40] LABS: Potassium 4.4 mmol/L (3.5-5.1)
[2017-08-05 06:52] LABS: Glucose,Whole Blood 243 mg/dL (75-99)
[2017-08-05] MEDS: LEVOTHYROXINE 50 MCG TAB PO SCH (06:53)
[2017-08-05 07:23] LABS: Glucose,Whole Blood 275 mg/dL (75-99)
[2017-08-05] MEDS: ESCITALOPRAM 10 MG TAB PO SCH (08:08)
[2017-08-05] MEDS: GABAPENTIN 300 MG CAP PO SCH ×3 (08:08→20:23)
[2017-08-05] MEDS: ASPIRIN 81 MG PO SCH (08:08)
[2017-08-05] MEDS: LINAGLIPTIN 5 MG TABLET PO SCH (08:08)
[2017-08-05] MEDS: PIOGLITAZONE 15 MG TAB PO SCH (08:08)
[2017-08-05] MEDS: FAMOTIDINE 20 MG TAB PO SCH (08:08)
[2017-08-05] MEDS: CARVEDILOL 3.125 MG TAB PO SCH ×2 (08:08→17:15)
[2017-08-05] MEDS: FENOFIBRATE 160 MG TAB PO SCH (08:08)
[2017-08-05] MEDS: INSULIN ASPART 100 UNIT/ML 1 ML 10 ML VIAL SQ SCH ×3 (08:09→17:16)
[2017-08-05] MEDS: INSULIN DETEMIR 100 UNIT/ML 10 ML VIAL SQ SCH ×2 (08:09→23:22)
[2017-08-05] MEDS: ARTIFICIAL TEARS-HYPROMELLOSE DROPS 15 ML BTL BOTH EYES PRN (08:09)
[2017-08-05] MEDS: cycloSPORINE 0.05% OPHTH 0.4 ML DROPERETTE BOTH EYES SCH ×2 (08:12→20:22)
--- NOTE | 2017-08-05 09:06 | P.PN ---
Subjective Progress Note Date: 08/05/17 Principal diagnosis: Congestive heart failure Progress note dated 08/04/2017 71-year-old male with a history of congestive heart failure, non-ST segment elevation myocardial infarction right shoulder pain CAD CVA diabetes mellitus hyperlipidemia essential hypertension DJD skin cancer kidney stones and multiple other medical problems. The patient was transferred from the sixth floor to the ICU as an ICU overflow. I was not notified as to why the patient was transferred or how the patient was transferred to the ICU. I have one of my charge nurse is working on that at this time. The patient somewhat lethargic. The patient is not receiving any supplemental oxygen. There is no IVs. I was told that somehow the administrative charge was 100 transfer the patient to the ICU. I believe that was a overflow patient to overflow patient transfer. The patient does apparently have positive blood cultures for presumptive methicillin-resistant staph aureus dated August 02. This is a new finding. Also, his cardiac enzymes were quite elevated. The patient is a no code patient. Progress note dated 08/05/2017 71-year-old male with history of congestive heart failure, non-ST segment elevation myocardial infarction, right shoulder pain, CAD, CVA, diabetes mellitus, hyperlipidemia, essential hypertension, DJD, skin cancer, kidney stones, and multiple other medical problems. The patient was transferred from the sixth floor to the ICU as an ICU overflow. He remains a selective overflow patient. The patient currently is not receiving any supplemental oxygen. His get a saline IV at 10 mL an hour. The patient could be transferred out. He is no code. Probably can be transferred out to the general medical floor with telemetry. There are no 6 selective beds. He had positive blood cultures for presumptive methicillin-resistant staph aureus. That was dated August 02. That was a new finding. Again the patient seemed relatively stable and could go to the general medical floor with telemetry given his CODE STATUS. Objective - Vital Signs Vital signs: Vital Signs Temp 100.0 F H 08/05/17 04:00 Pulse 107 H 08/05/17 05:00 Resp 22 08/05/17 05:00 BP 92/59 08/05/17 05:00 Pulse Ox 92 L 08/05/17 08:11 Intake & Output 08/04/17 08/05/17 08/05/17 18:59 06:59 18:59 Intake Total 150 Balance 150 Weight 91.8 kg Intake: IV 150 ACETAMINOPHEN IV (For NPO 100 ) 1,000 mg In Empty Bag 1 bag @ 400 mls/hr IVPB Q6HR PRN Rx#:[id number] DAPTOmycin 500 mg In 50 Sodium Chloride 0.9% 50 ml @ 100 mls/hr IVPB Q24H [facility] Rx#:[id number] Other: Voiding Method Diaper Diaper Incontinent Incontinent # Voids 1 1 # Bowel Movements 1 - Exam No acute distress, The patient is lethargic. No supplemental oxygen. HEENT examination is grossly unremarkable. Mucous membranes are moist. No oral lesions. Neck supple. Full range of motion. No adenopathy thyromegaly or neck vein distention. Cardiovascular examination reveals regular rhythm rate. S1-S2 normal. No S3 or S4. No discernible murmur noted. Heart sounds are distant. Lungs reveal mild coarse rhonchi. Breath sounds are equal bilaterally. There are diminished throughout. A few scattered crackles are noted. No wheezes.. Abdomen soft bowel sounds are heard. No masses or tenderness. Extremities are intact. No cyanosis clubbing or edema. Skin is without rash or lesion. Neurologic examination is brief but nonfocal. - Labs CBC & Chem 7: 08/05/17 05:08 08/05/17 05:08 Labs: Abnormal Lab Results - Last 24 Hours (Table) 08/04/17 08/04/17 08/04/17 Range/Units 12:30 16:47 18:11 RBC (4.30-5.90) m/uL Hgb (13.0-17.5) gm/dL Hct (39.0-53.0) % Plt Count (150-450) k/uL Lymphocytes # (1.0-4.8) k/uL Sodium (137-145) mmol/L BUN (9-20) mg/dL Creatinine (0.66-1.25) mg/dL Glucose (74-99) mg/dL POC Glucose (mg/dL) 325 H 444 H 445 H (75-99) mg/dL 08/04/17 08/05/17 08/05/17 Range/Units 19:48 05:08 05:08 RBC 2.32 L (4.30-5.90) m/uL Hgb 7.5 L (13.0-17.5) gm/dL Hct 21.5 L (39.0-53.0) % Plt Count 50 L* (150-450) k/uL Lymphocytes # 0.7 L (1.0-4.8) k/uL Sodium 147 H (137-145) mmol/L BUN 88 H* (9-20) mg/dL Creatinine 2.16 H (0.66-1.25) mg/dL Glucose 208 H (74-99) mg/dL POC Glucose (mg/dL) 331 H (75-99) mg/dL 08/05/17 08/05/17 Range/Units 06:50 07:22 RBC (4.30-5.90) m/uL Hgb (13.0-17.5) gm/dL Hct (39.0-53.0) % Plt Count (150-450) k/uL Lymphocytes # (1.0-4.8) k/uL Sodium (137-145) mmol/L BUN (9-20) mg/dL Creatinine (0.66-1.25) mg/dL Glucose (74-99) mg/dL POC Glucose (mg/dL) 243 H 275 H (75-99) mg/dL Microbiology - Last 24 Hours (Table) 08/02/17 17:37 Blood Culture Gram Stain - Final Blood Blood Culture - Final Methicillin resist S. aureus 08/03/17 09:17 Blood Culture Gram Stain - Preliminary Blood Blood Culture - Preliminary Presumptive MRSA 08/02/17 18:04 Blood Culture Gram Stain - Final Blood Blood Culture - Final Methicillin resist S. aureus Assessment and Plan Assessment: Assessment Rule out myocardial infarction/acute coronary syndrome Presumptive sepsis secondary to MRSA Congestive heart failure based on the patient's examination, abnormal chest x- ray, an N-terminal proBNP, all likely secondary to myocardial ischemia Rule out non-ST segment elevation myocardial infarction History of right shoulder pain, which may be musculoskeletal or the patient's angina equivalent History of CAD with previous stents History of CVA History of diabetes mellitus History of hyperlipidemia Benign essential hypertension DJD History of skin cancer History of kidney stones History of multiple other medical problems and comorbidities Plan: Plan dated 08/02/2017 The patient is currently being seen by cardiology and the primary service. A ventilation perfusion lung scan was ordered. The chest x-ray with is distinctly abnormal. Hence, the VQ scan is always going to be nondiagnostic. It should not have been ordered in my opinion. Anyway, I suspect the diagnosis is actually an acute coronary syndrome ischemic cardiac disease with heart failure. We'll follow along. Not much more to add at this time. We'll review the medications labs and x-rays. Plan dated 08/04/2017 The patient was transferred from the sixth floor to the ICU last night. Again I was not notified of the transfer. I'm sure exactly how the patient got here. Currently the patient is being treated for acute congestive heart failure non- ST segment elevation myocardial infarction and presumptive MRSA sepsis. Additional recommendations and suggestions are forthcoming. Prognosis is poor. The patient is not receiving any supplemental oxygen or supplemental IVs. Meds labs and x-rays are all reviewed. He is a no code patient. Critical care time 32 minutes The patient said doing reasonably well. The patient remains on no supplemental oxygen. Has a basic IV of saline at 10 mL an hour. He is a selective overflow patient. The patient could be transferred to 6 selective or to general medical floor with telemetry. Additional recommendations and suggestions are forthcoming. He is a no code patient. I think that's reasonable. Time with Patient: Greater than 30
[2017-08-05 11:30] LABS: Glucose,Whole Blood 228 mg/dL (75-99)
--- NOTE | 2017-08-05 13:58 | PN ---
PROGRESS NOTE DATE OF SERVICE: 08/05/2017. REASON FOR FOLLOWUP: MRSA bacteremia, source is right upper extremity cellulitis, IV site. INTERVAL HISTORY: The patient overall fever pattern has improved. He seems to be slightly more awake, alert, asking when he can go home. Denies having any chest pain or cough or any pain in the right upper extremity. EXAMINATION: Blood pressure 95/58 with a pulse of 89, temperature 98.4. He is 97% on room air. General description is an elderly male lying in bed in no distress. Respiratory system: Unlabored breathing. Clear to auscultation anteriorly. Heart S1, S2. Regular rate and rhythm. Abdomen soft. No tenderness. Right upper arm swelling, minimal redness and no drainage. LABS: Hemoglobin 7.5, white count 7.0, BUN of 88, creatinine is 2.16. DIAGNOSTIC IMPRESSION AND PLAN: Patient with MRSA bacteremia, source is right upper extremity cellulitis, site of the IV that has been discontinued. CT did show slight abnormality, but no evidence of any fluid collection. These results of CT will be reviewed with vascular surgery for need for any surgical debridement. In the meantime we will keep the patient on daptomycin for the underlying bacteremia. Repeat blood cultures in order to bacteremia. Continue supportive care. MMODL / IJN: [id number] /
[2017-08-05] MEDS: MULTIVITAMINS, THERA 1 EACH TAB PO SCH (14:40)
[2017-08-05 16:59] LABS: Glucose,Whole Blood 220 mg/dL (75-99)
[2017-08-05] MEDS: clonazePAM 0.5 MG TAB PO SCH (20:22)
[2017-08-05] MEDS: CHOLECALCIFEROL 1,000 UNIT TAB PO SCH (20:22)
[2017-08-05 20:34] LABS: Glucose,Whole Blood 116 mg/dL (75-99)
--- NOTE | 2017-08-05 22:54 | P.PN ---
Subjective Progress Note Date: 08/04/17 Principal diagnosis: Sepsis Mr. Howard is a 71-year-old male with a past medical history of stroke with left- sided hemiplegia, coronary artery disease, hypertension, hyperlipidemia, nephrolithiasis [facility] with a chief complaint of right shoulder pain for the past 2-3 days. The patient is a very poor historian and all he states was about is his right shoulder pain that started couple of days back and that he is not able to move his shoulder. Patient has a very complicated medical history of stroke with left-sided hemiplegia, chronic thrombocytopenia, decubitus ulcers, chronic debility. In the ED the patient was found to have elevated troponins in 20s along with a chest x-ray consistent with pulmonary vascular congestion and so she has been started on IV heparin drip even though his platelet counts. He. Patient has no active signs of bleeding currently. Patient was also found to have a fever with T-max of 102.2 at the time of admission but no white count. Patient has been tested negative for influenza. On 08/03/17 - Pt is lying in the bed and c/o right shoulder pain. On 08/04/17 - The patient has been transferred to the ICU overnight as selective overfow. Today the patient is in the ICU lying comfortably in the bed. Patient looks much better than compared to yesterday. He states his right shoulder pain is better compared to yesterday. On 08/05/17 - The patient has been transferred out of the ICU . He is lying comfortably in the bed. No acute overnight issues reported. He states his right shoulder feels better compared to yesterday. REVIEW OF SYSTEMS : Patient is a very poor historian and on review of systems he was negative for Chest pain, palpitations, difficulty in breathing. He denies having any hematuria or dysuria. Patient denies having any fevers chills or rigors. Patient denies having any abdominal pain nausea vomiting or diarrhea. Patient denies having any bleeding per rectum or blood in the stool. Objective - Vital Signs Vital signs: Vital Signs Temp 98.9 F 08/04/17 16:00 Pulse 100 08/04/17 16:00 Resp 20 08/04/17 16:00 BP 117/74 08/04/17 16:00 Pulse Ox 95 08/04/17 16:00 Intake & Output 08/03/17 08/04/17 08/04/17 18:59 06:59 18:59 Intake Total 350 Balance 350 Weight 91.2 kg Intake: Intake, IV Titration 250 Amount Vancomycin 1,500 mg In 250 Sodium Chloride 0.9% 250 ml @ 125 mls/hr IVPB ONCE ONE Rx#:[id number] Oral 100 Other: Voiding Method Diaper Diaper Diaper Incontinent Incontinent # Voids 3 1 1 # Bowel Movements 0 1 - Exam GEN. APPEARANCE: in no apparent distress HEAD EXAM: atraumatic, normocephalic, normal inspection EYE EXAM: No pallor or icterus. ENT EXAM: mucous membranes moist NECK EXAM: normal inspection. Absent: tenderness, meningismus RESPIRATORY EXAM: Decreased breath sounds in all lung harris, bilateral crackles at the lower lung harris, no wheezing CARDIOVASCULAR EXAM: regular rate, normal rhythm, normal heart sounds. Absent : systolic murmur, diastolic murmur, rubs, gallop, clicks GI/ABDOMINAL EXAM: soft, normal bowel sounds. Absent: distended, tenderness, guarding, rebound, rigid EXTREMITIES EXAM: Right shoulder- + for tenderness, range of motion is restricted in all directions, mild swelling NEUROLOGICAL EXAM: Oriented to place and name. Left-sided hemiplegia. PSYCHIATRIC EXAM: normal affect and normal mood SKIN EXAM: 2 small stage II ulcers on the coccyx region - Labs CBC & Chem 7: 08/05/17 05:08 08/05/17 05:08 Labs: Abnormal Lab Results - Last 24 Hours (Table) 08/03/17 08/04/17 08/04/17 Range/Units 21:11 03:26 03:26 RBC 2.27 L (4.30-5.90) m/uL Hgb 7.2 L (13.0-17.5) gm/dL Hct 21.4 L (39.0-53.0) % Plt Count 54 L (150-450) k/uL Lymphocytes # 0.4 L (1.0-4.8) k/uL BUN 91 H* (9-20) mg/dL Creatinine 2.80 H (0.66-1.25) mg/dL Glucose 163 H (74-99) mg/dL POC Glucose (mg/dL) 146 H (75-99) mg/dL 08/04/17 08/04/17 08/04/17 Range/Units 07:06 12:30 16:47 RBC (4.30-5.90) m/uL Hgb (13.0-17.5) gm/dL Hct (39.0-53.0) % Plt Count (150-450) k/uL Lymphocytes # (1.0-4.8) k/uL BUN (9-20) mg/dL Creatinine (0.66-1.25) mg/dL Glucose (74-99) mg/dL POC Glucose (mg/dL) 218 H 325 H 444 H (75-99) mg/dL Microbiology - Last 24 Hours (Table) 08/03/17 09:17 Blood Culture Gram Stain - Preliminary Blood 08/02/17 17:37 Blood Culture Gram Stain - Preliminary Blood Blood Culture - Preliminary Presumptive MRSA 08/03/17 09:17 Blood Culture - Final Blood 08/02/17 18:04 Blood Culture Gram Stain - Preliminary Blood Blood Culture - Preliminary Presumptive MRSA Assessment and Plan Assessment: ASSESSMENT 1. Sepsis - source of infection is the right arm IV site - Daptomycin for MRSA in Blood cultures. 2.Right shoulder pain- x-rays reviewed showing antibiotic implant in place - CT scan done yesterday - no evidence of abscess 3. NSTEMI 4. Chronic thrombocytopenia- no active signs of bleeding 5. History of coronary artery disease status post stenting 6. Essential hypertension 7. Type 2 diabetes mellitus 8. History of stroke with left-sided hemiplegia. 9. Acute on chronic kidney injury 9. H/o nephrolithiasis 10. History of skin cancer 11. Chronic systolic Heart failure EF - 20-25 % PLAN - Heparin was discontinued. Patient's blood cultures positive for MRSA and he will be continued on daptomycin in view of his acute kidney injury. Repeat Blood cultures will be followed.Creatinine stable. Patient had CAT scan of his upper right extremity - no evidence of abscess. Will continue with the rest of his medication regimen. Overall prognosis is very poor due to chronic medical comorbidities. Patient is a DO NOT RESUSCITATE.
[2017-08-06 04:33] LABS: Glucose,Whole Blood 190 mg/dL (75-99)
[2017-08-06 05:54] LABS: Glucose,Whole Blood 229 mg/dL (75-99)
[2017-08-06] MEDS: CARVEDILOL 3.125 MG TAB PO SCH (06:45)
[2017-08-06] MEDS: LEVOTHYROXINE 50 MCG TAB PO SCH (06:45)
[2017-08-06] MEDS: INSULIN ASPART 100 UNIT/ML 1 ML 10 ML VIAL SQ SCH ×5 (06:49→20:55)
[2017-08-06 07:12] LABS: Basophils % (A) 0 %; Eosinophils # (A) 0.1 k/uL (0-0.7); Eosinophils % (A) 1 %; HCT 23.6 % (39.0-53.0); HGB 8.1 gm/dL (13.0-17.5); Lymphocytes # (A) 0.9 k/uL (1.0-4.8); Lymphocytes % (A) 9 %; MCH 32.3 pg (25.0-35.0); MCHC 34.2 g/dL (31.0-37.0); MCV 94.6 fL (80.0-100.0); Mean Platelet Volume 8.6; Monocytes # (A) 0.5 k/uL (0-1.0); Monocytes % (A) 5 %; Neutrophils # (A) 8.1 k/uL (1.3-7.7); Neutrophils % (A) 80 %; Poikilocytosis Slight; RBC 2.49 m/uL (4.30-5.90); RDW 13.8 % (11.5-15.5); WBC 10.2 k/uL (3.8-10.6)
[2017-08-06 07:14] LABS: Platelet Count 82 k/uL (150-450)
[2017-08-06 07:57] LABS: Calcium 10.1 mg/dL (8.4-10.2); Potassium 4.9 mmol/L (3.5-5.1)
[2017-08-06] MEDS: cycloSPORINE 0.05% OPHTH 0.4 ML DROPERETTE BOTH EYES SCH ×2 (08:52→20:56)
[2017-08-06] MEDS: MULTIVITAMINS, THERA 1 EACH TAB PO SCH (08:52)
[2017-08-06] MEDS: FENOFIBRATE 160 MG TAB PO SCH (08:53)
[2017-08-06] MEDS: ESCITALOPRAM 10 MG TAB PO SCH (08:53)
[2017-08-06] MEDS: LINAGLIPTIN 5 MG TABLET PO SCH (08:53)
[2017-08-06] MEDS: ASPIRIN 81 MG PO SCH (08:53)
[2017-08-06] MEDS: GABAPENTIN 300 MG CAP PO SCH ×2 (08:53→17:14)
[2017-08-06] MEDS: FAMOTIDINE 20 MG TAB PO SCH (08:53)
[2017-08-06] MEDS: INSULIN DETEMIR 100 UNIT/ML 10 ML VIAL SQ SCH ×2 (08:54→20:55)
[2017-08-06] MEDS: PIOGLITAZONE 15 MG TAB PO SCH (09:00)
[2017-08-06] MEDS ORDERED: FUROSEMIDE 10 MG/ML 4 ML VIAL IV STA ×2 (09:13→14:39)
[2017-08-06] MEDS: ACETAMINOPHEN SUPPOSITORY 650 MG SUPP RECTAL PRN (09:21)
--- NOTE | 2017-08-06 09:39 | XR ---
EXAMINATION TYPE: XR chest 1V DATE OF EXAM: 08/06/2017 COMPARISON: 08/01/2017 HISTORY: shortness of breath TECHNIQUE: Single frontal view of the chest is obtained. FINDINGS: Patchy opacities are noted and stable. No definite sizable pleural effusion is seen. There is no pneumothorax. Postsurgical changes to the right humerus are noted. Interstitial changes could been the basis of congestion or chronic interstitial lung disease. Postsurgical change right shoulder . IMPRESSION: 1. Chronic pleural-parenchymal changes with left-sided consolidation and small effusion. Mild central venous congestion or interstitial pneumonitis or chronic lung disease in the differential diagnosis. Findings are slightly improved from the prior exam.
--- NOTE | 2017-08-06 10:25 | P.PN ---
Subjective Progress Note Date: 08/06/17 Principal diagnosis: Congestive heart failure Progress note dated 08/04/2017 71-year-old male with a history of congestive heart failure, non-ST segment elevation myocardial infarction right shoulder pain CAD CVA diabetes mellitus hyperlipidemia essential hypertension DJD skin cancer kidney stones and multiple other medical problems. The patient was transferred from the sixth floor to the ICU as an ICU overflow. I was not notified as to why the patient was transferred or how the patient was transferred to the ICU. I have one of my charge nurse is working on that at this time. The patient somewhat lethargic. The patient is not receiving any supplemental oxygen. There is no IVs. I was told that somehow the administrative charge was 100 transfer the patient to the ICU. I believe that was a overflow patient to overflow patient transfer. The patient does apparently have positive blood cultures for presumptive methicillin-resistant staph aureus dated August 02. This is a new finding. Also, his cardiac enzymes were quite elevated. The patient is a no code patient. Progress note dated 08/05/2017 71-year-old male with history of congestive heart failure, non-ST segment elevation myocardial infarction, right shoulder pain, CAD, CVA, diabetes mellitus, hyperlipidemia, essential hypertension, DJD, skin cancer, kidney stones, and multiple other medical problems. The patient was transferred from the sixth floor to the ICU as an ICU overflow. He remains a selective overflow patient. The patient currently is not receiving any supplemental oxygen. His get a saline IV at 10 mL an hour. The patient could be transferred out. He is no code. Probably can be transferred out to the general medical floor with telemetry. There are no 6 selective beds. He had positive blood cultures for presumptive methicillin-resistant staph aureus. That was dated August 02. That was a new finding. Again the patient seemed relatively stable and could go to the general medical floor with telemetry given his CODE STATUS. Progress note dated 08/06/2017 71-year-old male with history of congestive heart failure, non-ST segment elevation myocardial infarction, right shoulder pain, CAD, CVA, diabetes mellitus, hyperlipidemia, essential hypertension, DJD, skin cancer, kidney stones, and multiple other medical problems. The patient was transferred from the sixth floor to the ICU as an ICU overflow. He remains a selective overflow as of yesterday. The patient was not receiving any supplemental oxygen. Today , he looks more lethargic and somnolent. Is talking gibberish. The patient's chest x-ray shows bilateral infiltrates. He's not had a chest x-ray since early admission. A repeat was done portably. In addition, the patient will receive some Lasix 40 mg IV push empirically. The patient is a no code. His blood cultures were positive for methicillin-resistant staph aureus. He treated for that with daptomycin. ID consultation has been done. His overall prognosis is likely poor. He looks very chronically ill. Chest x-ray does show some left-sided pleural effusion and some chronic changes but overall, chest x-rays improved from earlier chest x-ray. Labs revealed among other things a sodium which is rising at 151 and a chloride of 111 and a BUN and creatinine of 75 and 2.14. Diuretics will have to be cut back a bit. Microbiology is consistent with multiple blood cultures for methicillin- resistant staph aureus. Objective - Vital Signs Vital signs: Vital Signs Temp 102 F H 08/06/17 08:00 Pulse 121 H 08/06/17 08:00 Resp 16 08/06/17 08:00 BP 114/57 08/06/17 04:00 Pulse Ox 97 08/06/17 08:00 Intake & Output 08/05/17 08/06/17 08/06/17 18:59 06:59 18:59 Intake Total 568 120 Balance 568 120 Weight 91.5 kg Intake: IV 80 0.9 80 Oral 488 120 Other: Voiding Method Diaper Diaper Incontinent Incontinent # Voids 2 1 # Bowel Movements 1 - Exam No acute distress, The patient is lethargic. No supplemental oxygen. HEENT examination is grossly unremarkable. Mucous membranes are moist. No oral lesions. Neck supple. Full range of motion. No adenopathy thyromegaly or neck vein distention. Cardiovascular examination reveals regular rhythm rate. S1-S2 normal. No S3 or S4. No discernible murmur noted. Heart sounds are distant. Lungs reveal mild coarse rhonchi. Breath sounds are equal bilaterally. There are diminished throughout. A few scattered crackles are noted. No wheezes.. Abdomen soft bowel sounds are heard. No masses or tenderness. Extremities are intact. No cyanosis clubbing or edema. Skin is without rash or lesion. Neurologic examination is brief but nonfocal. Patient seems a bit confused and disoriented. - Labs CBC & Chem 7: 08/06/17 06:39 08/06/17 06:39 Labs: Abnormal Lab Results - Last 24 Hours (Table) 08/05/17 08/05/17 08/05/17 Range/Units 11:25 16:39 20:32 RBC (4.30-5.90) m/uL Hgb (13.0-17.5) gm/dL Hct (39.0-53.0) % Plt Count (150-450) k/uL Neutrophils # (1.3-7.7) k/uL Lymphocytes # (1.0-4.8) k/uL Sodium (137-145) mmol/L Chloride (98-107) mmol/L BUN (9-20) mg/dL Creatinine (0.66-1.25) mg/dL Glucose (74-99) mg/dL POC Glucose (mg/dL) 228 H 220 H 116 H (75-99) mg/dL 08/06/17 08/06/17 08/06/17 Range/Units 04:21 05:52 06:39 RBC 2.49 L (4.30-5.90) m/uL Hgb 8.1 L (13.0-17.5) gm/dL Hct 23.6 L (39.0-53.0) % Plt Count 82 L D (150-450) k/uL Neutrophils # 8.1 H (1.3-7.7) k/uL Lymphocytes # 0.9 L (1.0-4.8) k/uL Sodium (137-145) mmol/L Chloride (98-107) mmol/L BUN (9-20) mg/dL Creatinine (0.66-1.25) mg/dL Glucose (74-99) mg/dL POC Glucose (mg/dL) 190 H 229 H (75-99) mg/dL 08/06/17 Range/Units 06:39 RBC (4.30-5.90) m/uL Hgb (13.0-17.5) gm/dL Hct (39.0-53.0) % Plt Count (150-450) k/uL Neutrophils # (1.3-7.7) k/uL Lymphocytes # (1.0-4.8) k/uL Sodium 151 H (137-145) mmol/L Chloride 111 H (98-107) mmol/L BUN 75 H (9-20) mg/dL Creatinine 2.14 H (0.66-1.25) mg/dL Glucose 213 H (74-99) mg/dL POC Glucose (mg/dL) (75-99) mg/dL Microbiology - Last 24 Hours (Table) 08/03/17 09:17 Blood Culture Gram Stain - Final Blood Blood Culture - Final Methicillin resist S. aureus 08/04/17 23:37 Blood Culture - Preliminary Blood No Growth after 24 hours 08/02/17 17:37 Blood Culture Gram Stain - Final Blood Blood Culture - Final Methicillin resist S. aureus Assessment and Plan Assessment: Assessment Rule out myocardial infarction/acute coronary syndrome Presumptive sepsis secondary to MRSA Congestive heart failure based on the patient's examination, abnormal chest x- ray, an N-terminal proBNP, all likely secondary to myocardial ischemia Rule out non-ST segment elevation myocardial infarction History of right shoulder pain, which may be musculoskeletal or the patient's angina equivalent History of CAD with previous stents History of CVA History of diabetes mellitus History of hyperlipidemia Benign essential hypertension DJD History of skin cancer History of kidney stones History of multiple other medical problems and comorbidities Plan: Plan dated 08/02/2017 The patient is currently being seen by cardiology and the primary service. A ventilation perfusion lung scan was ordered. The chest x-ray with is distinctly abnormal. Hence, the VQ scan is always going to be nondiagnostic. It should not have been ordered in my opinion. Anyway, I suspect the diagnosis is actually an acute coronary syndrome ischemic cardiac disease with heart failure. We'll follow along. Not much more to add at this time. We'll review the medications labs and x-rays. Plan dated 08/04/2017 The patient was transferred from the sixth floor to the ICU last night. Again I was not notified of the transfer. I'm sure exactly how the patient got here. Currently the patient is being treated for acute congestive heart failure non- ST segment elevation myocardial infarction and presumptive MRSA sepsis. Additional recommendations and suggestions are forthcoming. Prognosis is poor. The patient is not receiving any supplemental oxygen or supplemental IVs. Meds labs and x-rays are all reviewed. He is a no code patient. Critical care time 32 minutes The patient said doing reasonably well. The patient remains on no supplemental oxygen. Has a basic IV of saline at 10 mL an hour. He is a selective overflow patient. The patient could be transferred to 6 selective or to general medical floor with telemetry. Additional recommendations and suggestions are forthcoming. He is a no code patient. I think that's reasonable. Plan dated 08/06/2017 The patient is doing worse today than yesterday. Chest x-ray isn't bit improved. He did receive some additional Lasix is morning 40 mg IV push. An upright chest x-ray was ordered by us. Looking at his labs, it appears that he becoming to prerenal hypernatremic and hyperchloremic. Hence his diuretics will be held. Additional recommendations and suggestions are forthcoming. His CODE STATUS is no code. His overall prognosis is poor. He is much more lethargic and somnolent today than in past. Additional recommendations and suggestions are forthcoming. Prognosis O, does not look good. Time with Patient: Less than 30
[2017-08-06 11:46] LABS: Glucose,Whole Blood 154 mg/dL (75-99)
[2017-08-06] MEDS ORDERED: DAPTOmycin 500 MG in SODIUM CHLORIDE 0.9% 50 ML IVPB SCH (13:00)
[2017-08-06 13:41] VITALS: BMI 31.6
[2017-08-06] MEDS ORDERED: ACETAMINOPHEN IV (For NPO) 1,000 MG in EMPTY BAG 1 BAG IVPB STA (14:56)
[2017-08-06] MEDS: PIPERACILLIN-TAZOBACTAM 3.375 GM in DEXTROSE/WATER 1 50ML.BAG IVPB SCH (16:10)
[2017-08-06 16:24] LABS: Glucose,Whole Blood 346 mg/dL (75-99)
--- NOTE | 2017-08-06 16:59 | PN ---
PROGRESS NOTE DATE OF SERVICE: 08/06/2017 REASON FOR FOLLOW UP: MRSA bacteremia with right arm IV site cellulitis. INTERVAL HISTORY: The patient started spiking fever again with a fever of 102. A repeat is 101.3. At noon the patient seemed to be lethargic and sleepy. Unable to provide any history. No nausea or vomiting has been noticed. symptoms of any diarrhea. EXAMINATION: Blood pressure is 134/54 with a pulse of 130, temperature of 101.3. He is 95% on 3 L nasal cannula. General description is an elderly male lying in bed in no distress. RESPIRATORY SYSTEM: Unlabored breathing with decreased breath sounds in the bases. No wheeze. Heart S1, S2. Tachycardic. Abdomen soft. No tenderness. Extremities: No edema of the feet. Examination of the right upper arm: The antecubital fossa did have a bruise and some swelling of the arm, but no significant redness was noticed. LABS: Hemoglobin 8.1, white count 10.2 with a BUN of 75, creatinine is 2.14. DIAGNOSTIC IMPRESSION AND PLAN: Patient with MRSA bacteremia secondary to the right antecubital fossa line infection in a patient who did have a CT which did show some soft tissue swelling but no evidence of any drainable abscess with new fever as the patient did have a normal chest x-ray. Question of possible secondary pneumonia not entirely excluded. The patient's daptomycin dose will be changed to 24 hours in view of improvement in his kidney function. This was discussed with the pharmacy and will add Zosyn to cover for the possible pneumonia. In the meantime RN has been advised to erich the area of bruise in the right antecubital fossa, which is not getting any bigger, than may be a candidate for possible continue with blood loss in that area and hematoma may be contributing to some of his fever. Overall prognosis remains to be guarded. MMODL / IJN: [id number] /
[2017-08-06] MEDS ORDERED: SODIUM CHLORIDE 0.45% 1,000 ML IV SCH (17:15)
[2017-08-06 20:49] LABS: Glucose,Whole Blood 312 mg/dL (75-99)
[2017-08-07 00:13] LABS: Glucose,Whole Blood 291 mg/dL (75-99)
--- NOTE | 2017-08-07 01:09 | P.PN ---
Subjective Progress Note Date: 08/05/17 Principal diagnosis: Sepsis Mr. Howard is a 71-year-old male with a past medical history of stroke with left- sided hemiplegia, coronary artery disease, hypertension, hyperlipidemia, nephrolithiasis coming from the long term with a chief complaint of right shoulder pain for the past 2-3 days. The patient is a very poor historian and all he states was about is his right shoulder pain that started couple of days back and that he is not able to move his shoulder. Patient has a very complicated medical history of stroke with left-sided hemiplegia, chronic thrombocytopenia, decubitus ulcers, chronic debility. In the ED the patient was found to have elevated troponins in 20s along with a chest x-ray consistent with pulmonary vascular congestion and so she has been started on IV heparin drip even though his platelet counts. He. Patient has no active signs of bleeding currently. Patient was also found to have a fever with T-max of 102.2 at the time of admission but no white count. Patient has been tested negative for influenza. On 08/03/17 - Pt is lying in the bed and c/o right shoulder pain. On 08/04/17 - The patient has been transferred to the ICU overnight as selective overfow. Today the patient is in the ICU lying comfortably in the bed. Patient looks much better than compared to yesterday. He states his right shoulder pain is better compared to yesterday. On 08/05/17 - The patient has been transferred out of the ICU . He is lying comfortably in the bed. No acute overnight issues reported. He states his right shoulder feels better compared to yesterday. REVIEW OF SYSTEMS : Patient is a very poor historian and on review of systems he was negative for Chest pain, palpitations, difficulty in breathing. He denies having any hematuria or dysuria. Patient denies having any fevers chills or rigors. Patient denies having any abdominal pain nausea vomiting or diarrhea. Patient denies having any bleeding per rectum or blood in the stool. Objective - Vital Signs Vital signs: Vital Signs Temp 98.9 F 08/05/17 20:00 Pulse 111 H 08/05/17 20:00 Resp 20 08/05/17 20:00 BP 107/58 08/05/17 20:00 Pulse Ox 92 L 08/05/17 20:00 Intake & Output 08/05/17 08/05/17 08/06/17 06:59 18:59 06:59 Intake Total 150 568 Balance 150 568 Weight 91.8 kg Intake: IV 150 80 0.9 80 ACETAMINOPHEN IV (For NPO 100 ) 1,000 mg In Empty Bag 1 bag @ 400 mls/hr IVPB Q6HR PRN Rx#:[id number] DAPTOmycin 500 mg In 50 Sodium Chloride 0.9% 50 ml @ 100 mls/hr IVPB Q24H ROBERTO Rx#:[id number] Oral 488 Other: Voiding Method Diaper Diaper Incontinent Incontinent # Voids 1 2 1 # Bowel Movements 1 - Labs CBC & Chem 7: 08/05/17 05:08 08/05/17 05:08 Labs: Abnormal Lab Results - Last 24 Hours (Table) 08/05/17 08/05/17 08/05/17 Range/Units 05:08 05:08 06:50 RBC 2.32 L (4.30-5.90) m/uL Hgb 7.5 L (13.0-17.5) gm/dL Hct 21.5 L (39.0-53.0) % Plt Count 50 L* (150-450) k/uL Lymphocytes # 0.7 L (1.0-4.8) k/uL Sodium 147 H (137-145) mmol/L BUN 88 H* (9-20) mg/dL Creatinine 2.16 H (0.66-1.25) mg/dL Glucose 208 H (74-99) mg/dL POC Glucose (mg/dL) 243 H (75-99) mg/dL 08/05/17 08/05/17 08/05/17 Range/Units 07:22 11:25 16:39 RBC (4.30-5.90) m/uL Hgb (13.0-17.5) gm/dL Hct (39.0-53.0) % Plt Count (150-450) k/uL Lymphocytes # (1.0-4.8) k/uL Sodium (137-145) mmol/L BUN (9-20) mg/dL Creatinine (0.66-1.25) mg/dL Glucose (74-99) mg/dL POC Glucose (mg/dL) 275 H 228 H 220 H (75-99) mg/dL 08/05/17 Range/Units 20:32 RBC (4.30-5.90) m/uL Hgb (13.0-17.5) gm/dL Hct (39.0-53.0) % Plt Count (150-450) k/uL Lymphocytes # (1.0-4.8) k/uL Sodium (137-145) mmol/L BUN (9-20) mg/dL Creatinine (0.66-1.25) mg/dL Glucose (74-99) mg/dL POC Glucose (mg/dL) 116 H (75-99) mg/dL Microbiology - Last 24 Hours (Table) 08/03/17 09:17 Blood Culture Gram Stain - Final Blood Blood Culture - Final Methicillin resist S. aureus 08/02/17 17:37 Blood Culture Gram Stain - Final Blood Blood Culture - Final Methicillin resist S. aureus 08/02/17 18:04 Blood Culture Gram Stain - Final Blood Blood Culture - Final Methicillin resist S. aureus
--- NOTE | 2017-08-07 01:15 | P.PN ---
Subjective Progress Note Date: 08/06/17 Principal diagnosis: Sepsis Mr. Howard is a 71-year-old male with a past medical history of stroke with left- sided hemiplegia, coronary artery disease, hypertension, hyperlipidemia, nephrolithiasis coming from the detention with a chief complaint of right shoulder pain for the past 2-3 days. The patient is a very poor historian and all he states was about is his right shoulder pain that started couple of days back and that he is not able to move his shoulder. Patient has a very complicated medical history of stroke with left-sided hemiplegia, chronic thrombocytopenia, decubitus ulcers, chronic debility. In the ED the patient was found to have elevated troponins in 20s along with a chest x-ray consistent with pulmonary vascular congestion and so she has been started on IV heparin drip even though his platelet counts. He. Patient has no active signs of bleeding currently. Patient was also found to have a fever with T-max of 102.2 at the time of admission but no white count. Patient has been tested negative for influenza. On 08/03/17 - Pt is lying in the bed and c/o right shoulder pain. On 08/04/17 - The patient has been transferred to the ICU overnight as selective overfow. Today the patient is in the ICU lying comfortably in the bed. Patient looks much better than compared to yesterday. He states his right shoulder pain is better compared to yesterday. On 08/05/17 - The patient has been transferred out of the ICU . He is lying comfortably in the bed. No acute overnight issues reported. He states his right shoulder feels better compared to yesterday. 08/06/2017 Patient looks more lethargic and confused today. Unable to communicate at this time. Patient is having respiratory distress with secretions in the throat. Suction was done. Chest x-ray showed bilateral infiltrates. Otherwise patient has blood cultures positive for MRSA. Current antibiotic and wound daptomycin. ID and pulmonary is following. Sodium increased to 151 and BNP 75 creatinine 2.14 Prognosis poor. Cor status is DO NOT RESUSCITATE/DO NOT INTUBATE. Family has been contacted regarding further course of treatment. Review of systems could not be apparent from the patient Active Medications Generic Name Dose Route Start Last Admin Trade Name Freq PRN Reason Stop Dose Admin Acetaminophen 650 mg 08/01/17 22:06 08/03/17 10:47 Tylenol Tab PO 650 mg Q4H PRN Administration Pain Acetaminophen 650 mg 08/03/17 16:26 08/06/17 09:21 Tylenol Suppository RECTAL 650 mg Q4HR PRN Administration Fever and/ or Pain Al Hydroxide/Mg Hydroxide 30 ml 08/01/17 22:06 Maalox PO Q4H PRN Indigestion Artificial Tears 2 drops 08/01/17 22:06 08/05/17 08:09 Artificial Tear Drops BOTH EYES 2 drops Q4H PRN Administration dry gritty eyes Aspirin 81 mg 08/02/17 09:00 08/06/17 08:53 Aspirin PO 81 mg DAILY ROBERTO Administration Carvedilol 3.125 mg 08/02/17 07:30 08/06/17 06:45 Coreg PO 3.125 mg BID-W/MEALS ROBERTO Administration Cholecalciferol 1,000 unit 08/02/17 21:00 08/05/17 20:22 Vitamin D3 PO 1,000 unit HS ROBERTO Administration Clonazepam 0.5 mg 08/02/17 21:00 08/05/17 20:22 Klonopin PO 0.5 mg HS ROBERTO Administration Cyclosporine 1 drops 08/02/17 09:00 08/06/17 20:56 Restasis 0.05% Ophth Soln BOTH EYES 1 drops BID ROBERTO Administration Diphenoxylate HCl/Atropine 1 each 08/01/17 22:06 Lomotil PO Q6H PRN Diarrhea Escitalopram Oxalate 10 mg 08/02/17 09:00 08/06/17 08:53 Lexapro PO 10 mg DAILY ROBERTO Administration Famotidine 20 mg 08/02/17 09:00 08/06/17 08:53 Pepcid PO 20 mg DAILY ROBERTO Administration Fenofibrate 160 mg 08/02/17 09:00 08/06/17 08:53 Lofibra PO 160 mg DAILY ROBERTO Administration Gabapentin 300 mg 08/02/17 09:00 08/06/17 17:14 Neurontin PO Not Given TID ROBERTO Heparin Sodium (Porcine) 0 unit 08/01/17 21:10 Heparin IV PER PROTOCOL PRN Low PTT Protocol Daptomycin 500 mg/ Sodium 50 mls @ 100 mls/hr 08/06/17 13:00 08/06/17 16:07 Chloride IVPB Not Given Q24H ROBERTO Piperacillin/Tazobactam/ 50 mls @ 12.5 mls/hr 08/06/17 16:00 08/06/17 16:10 Dextrose 3.375 gm/ IV Solution IVPB 12.5 mls/hr Q8HR ROBERTO Administration Sodium Chloride 1,000 mls @ 50 mls/hr 08/06/17 17:15 08/06/17 17:17 Saline 0.45% IV 50 mls/hr .Q20H ROBERTO Administration Insulin Aspart 34 unit 08/02/17 07:30 08/06/17 17:15 Novolog SQ Not Given AC-TID ROBERTO Insulin Aspart 0 unit 08/06/17 17:30 08/06/17 20:55 Novolog SQ 5 unit ACHS ROEBRTO Administration Protocol Insulin Detemir 48 unit 08/02/17 09:00 08/06/17 20:55 Levemir SQ 48 unit BID ROBERTO Administration Levofloxacin 750 mg 08/04/17 21:00 08/04/17 22:31 Levaquin PO 750 mg Q48H ROBERTO Administration Levothyroxine Sodium 50 mcg 08/02/17 06:30 08/06/17 06:45 Synthroid PO 50 mcg DAILY@0630 ROBERTO Administration Linagliptin 5 mg 08/02/17 09:00 08/06/17 08:53 Tradjenta PO 5 mg DAILY ROBERTO Administration Magnesium Hydroxide 2,400 mg 08/01/17 22:06 Milk Of Magnesia PO DAILY PRN Constipation Multivitamins 1 each 08/02/17 12:00 08/06/17 08:52 Theragran PO 1 each DAILY@1200 ROBERTO Administration Nitroglycerin 0.4 mg 08/01/17 22:03 Nitrostat SUBLINGUAL Q5M PRN Chest Pain Pioglitazone HCl 15 mg 08/02/17 09:00 08/06/17 09:00 Actos PO 15 mg DAILY ROBERTO Administration Senna/Docusate Sodium 1 each 08/01/17 22:06 Senokot-S PO BID PRN Constipation Silver Sulfadiazine 1 applic 08/03/17 13:30 08/06/17 08:52 Silvadene Cream TOPICAL 1 applic DAILY ROBERTO Administration Objective - Vital Signs Vital signs: Vital Signs Temp 100.2 F H 08/06/17 21:10 Pulse 126 H 08/06/17 20:00 Resp 38 H 08/06/17 20:00 BP 115/61 08/06/17 20:00 Pulse Ox 94 L 08/06/17 21:12 Intake & Output 08/06/17 08/06/17 08/07/17 06:59 18:59 06:59 Intake Total 180 0 Balance 180 0 Weight 91.5 kg 91.5 kg 91.5 kg Intake: Oral 180 0 Other: Voiding Method Diaper Diaper Diaper Incontinent Incontinent Incontinent # Voids 1 2 1 - Exam GEN. APPEARANCE: Patient is lethargic and confused. Appears to be in distress HEAD EXAM: atraumatic, normocephalic, normal inspection EYE EXAM: No pallor or icterus. ENT EXAM: mucous membranes moist NECK EXAM: normal inspection. Absent: tenderness, meningismus RESPIRATORY EXAM: Decreased breath sounds in all lung harris, bilateral rhonchi and crackles at the lower lung harris, no wheezing CARDIOVASCULAR EXAM: regular rate, normal rhythm, normal heart sounds. Absent : systolic murmur, diastolic murmur, rubs, gallop, clicks GI/ABDOMINAL EXAM: soft, normal bowel sounds. Absent: distended, tenderness, guarding, rebound, rigid EXTREMITIES EXAM: Right shoulder- + for tenderness, range of motion is restricted in all directions, mild swelling NEUROLOGICAL EXAM: Oriented to place and name. Left-sided hemiplegia. PSYCHIATRIC EXAM: normal affect and normal mood SKIN EXAM: 2 small stage II ulcers on the coccyx region - Labs CBC & Chem 7: 08/06/17 06:39 08/06/17 06:39 Labs: Abnormal Lab Results - Last 24 Hours (Table) 08/06/17 08/06/17 08/06/17 Range/Units 04:21 05:52 06:39 RBC 2.49 L (4.30-5.90) m/uL Hgb 8.1 L (13.0-17.5) gm/dL Hct 23.6 L (39.0-53.0) % Plt Count 82 L D (150-450) k/uL Neutrophils # 8.1 H (1.3-7.7) k/uL Lymphocytes # 0.9 L (1.0-4.8) k/uL Sodium (137-145) mmol/L Chloride (98-107) mmol/L BUN (9-20) mg/dL Creatinine (0.66-1.25) mg/dL Glucose (74-99) mg/dL POC Glucose (mg/dL) 190 H 229 H (75-99) mg/dL 08/06/17 08/06/17 08/06/17 Range/Units 06:39 11:44 16:03 RBC (4.30-5.90) m/uL Hgb (13.0-17.5) gm/dL Hct (39.0-53.0) % Plt Count (150-450) k/uL Neutrophils # (1.3-7.7) k/uL Lymphocytes # (1.0-4.8) k/uL Sodium 151 H (137-145) mmol/L Chloride 111 H (98-107) mmol/L BUN 75 H (9-20) mg/dL Creatinine 2.14 H (0.66-1.25) mg/dL Glucose 213 H (74-99) mg/dL POC Glucose (mg/dL) 154 H 346 H (75-99) mg/dL 08/06/17 08/07/17 Range/Units 20:45 00:00 RBC (4.30-5.90) m/uL Hgb (13.0-17.5) gm/dL Hct (39.0-53.0) % Plt Count (150-450) k/uL Neutrophils # (1.3-7.7) k/uL Lymphocytes # (1.0-4.8) k/uL Sodium (137-145) mmol/L Chloride (98-107) mmol/L BUN (9-20) mg/dL Creatinine (0.66-1.25) mg/dL Glucose (74-99) mg/dL POC Glucose (mg/dL) 312 H 291 H (75-99) mg/dL Microbiology - Last 24 Hours (Table) 08/03/17 09:17 Blood Culture Gram Stain - Final Blood Blood Culture - Final Methicillin resist S. aureus 08/04/17 23:37 Blood Culture - Preliminary Blood No Growth after 24 hours Assessment and Plan Assessment: ASSESSMENT 1. Sepsis - source of infection is the right arm IV site - Daptomycin for MRSA in Blood cultures., 2. Acute metabolic and toxic encephalopathy due to infection 2. Right shoulder pain- x-rays reviewed showing antibiotic implant in place - CT scan done yesterday - no evidence of abscess 3. NSTEMI 4. Chronic thrombocytopenia- no active signs of bleeding 5. History of coronary artery disease status post stenting 6. Essential hypertension 7. Type 2 diabetes mellitus 8. History of stroke with left-sided hemiplegia. 9. Acute on chronic kidney injury 9. H/o nephrolithiasis 10. History of skin cancer 11. Chronic systolic Heart failure EF - 20-25 % PLAN - Heparin was discontinued. Patient's blood cultures positive for MRSA and he will be continued on daptomycin in view of his acute kidney injury. Follow-up creatinine level. Fairly stable at this time. Patient had CAT scan of his upper right extremity - no evidence of abscess. Patient be continued on current management and antibiotics. ID and pulmonary is following. Overall prognosis is very poor due to chronic medical comorbidities. Patient is a DO NOT RESUSCITATE. Time with Patient: Greater than 30
[2017-08-07] MEDS: PIPERACILLIN-TAZOBACTAM 3.375 GM in DEXTROSE/WATER 1 50ML.BAG IVPB SCH (03:16)
[2017-08-07] MEDS: ACETAMINOPHEN SUPPOSITORY 650 MG SUPP RECTAL PRN (05:03)
[2017-08-07] MEDS: CHOLECALCIFEROL 1,000 UNIT TAB PO SCH (05:09)
[2017-08-07] MEDS: clonazePAM 0.5 MG TAB PO SCH (05:09)
[2017-08-07] MEDS: GABAPENTIN 300 MG CAP PO SCH (05:09)
[2017-08-07] MEDS: LEVOFLOXACIN 750 MG TAB PO SCH (05:09)
[2017-08-07 05:54] LABS: Glucose,Whole Blood 395 mg/dL (75-99)
[2017-08-07 06:16] VITALS: BP 80/49; PULSE 109; RESP 18; TEMP 102.1
--- NOTE | 2017-08-07 22:50 | P.DS ---
Providers Date of admission: 08/01/17 22:06 Expected date of discharge: 08/07/17 Attending physician: Bing Almodovar Consults: 08/01/17 22:03 Consult Physician Urgent Consulting Provider: Oscar Duenas Consult Reason/Comments: Elevated Troponin. NSTEMI. Do you want consulting provider notified?: Already Contacted 08/02/17 00:18 Consult Physician Routine Consulting Provider: Mark Nicholson Consult Reason/Comments: Suspected pulmonary embolism Do you want consulting provider notified?: Yes 08/02/17 15:42 Consult Physician Urgent Consulting Provider: Brooks Mendiola Consult Reason/Comments: fevers Do you want consulting provider notified?: Yes 08/03/17 10:22 Consult Physician Stat Consulting Provider: Grayson Hutson Consult Reason/Comments: ischemic right arm Do you want consulting provider notified?: Yes Primary care physician: [facility] Course: diagnosis 1. Sepsis secondary to MRSA bacteremia. 2. Acute metabolic and toxic encephalopathy due to infection 2. Right shoulder pain- x-rays reviewed showing antibiotic implant in place - CT scan done yesterday - no evidence of abscess 3. Acute NSTEMI 4. Chronic thrombocytopenia- no active signs of bleeding 5. History of coronary artery disease status post stenting 6. Essential hypertension 7. Type 2 diabetes mellitus 8. History of stroke with left-sided hemiplegia. 9. Acute on chronic kidney injury 9. H/o nephrolithiasis 10. History of skin cancer 11. Chronic systolic Heart failure EF - 20-25 % Hospital course Mr. Howard is a 71-year-old male with a past medical history of stroke with left- sided hemiplegia, coronary artery disease, hypertension, hyperlipidemia, nephrolithiasis coming from the long-term with a chief complaint of right shoulder pain for the past 2-3 days. The patient is a very poor historian and all he states was about is his right shoulder pain that started couple of days back and that he is not able to move his shoulder. Patient has a very complicated medical history of stroke with left-sided hemiplegia, chronic thrombocytopenia, decubitus ulcers, chronic debility. In the ED the patient was found to have elevated troponins in 20s along with a chest x-ray consistent with pulmonary vascular congestion and so she has been started on IV heparin drip even though his platelet counts. He. Patient has no active signs of bleeding currently. Patient was also found to have a fever with T-max of 102.2 at the time of admission but no white count. Patient has been tested negative for influenza. On 08/03/17 - Pt is lying in the bed and c/o right shoulder pain. On 08/04/17 - The patient has been transferred to the ICU overnight as selective overfow. Today the patient is in the ICU lying comfortably in the bed. Patient looks much better than compared to yesterday. He states his right shoulder pain is better compared to yesterday. On 08/05/17 - The patient has been transferred out of the ICU . He is lying comfortably in the bed. No acute overnight issues reported. He states his right shoulder feels better compared to yesterday. 08/06/2017 Patient looks more lethargic and confused today. Unable to communicate at this time. Patient is having respiratory distress with secretions in the throat. Suction was done. Chest x-ray showed bilateral infiltrates. Otherwise patient has blood cultures positive for MRSA. Current antibiotic and wound daptomycin. ID and pulmonary is following. Sodium increased to 151 and BNP 75 creatinine 2.14 Prognosis poor. Code status is DO NOT RESUSCITATE/DO NOT INTUBATE. Family has been contacted regarding further course of treatment. Patient was continued on supportive management and medical management. Patient on 08/07/2017 Patient Condition at Discharge: Critical Plan - Discharge Summary Discharge Rx Participant: No New Discharge Prescriptions: No Action Fenofibrate [Lofibra] 160 mg PO DAILY Baclofen 10 mg PO TID@0800,1200,1800 Gabapentin [Neurontin] 300 mg PO TID@0800,1200,1800 clonazePAM [KlonoPIN] 0.5 mg PO HS #30 tab Famotidine [Pepcid] 20 mg PO DAILY tab Aspirin 81 mg PO DAILY chew Carvedilol [Coreg] 3.125 mg PO BID-W/MEALS tab Sennosides-Docusate Sodium [Senokot-S] 1 tab PO BID PRN PRN Reason: Constipation INSULIN LISPRO (humaLOG) [humaLOG] 34 units SQ AC-TID Clopidogrel [Plavix] 75 mg PO DAILY Insulin Detemir [Levemir] 48 unit SQ BID Cranberry Fruit Concentrate [Cranberry] 450 mg PO BID Atorvastatin [Lipitor] 40 mg PO HS Artificial Tears Ointment [Lubrifresh Pm Ointment] 1 applic BOTH EYES QID Pioglitazone [Actos] 15 mg PO DAILY Acetaminophen [Tylenol] 650 mg PO Q4H PRN PRN Reason: Pain Escitalopram [Lexapro] 10 mg PO DAILY Loperamide [Imodium] 2 mg PO QID PRN PRN Reason: Diarrhea Magnesium Hydroxide [Milk of Magnesia] 2,400 mg PO DAILY PRN PRN Reason: Constipation Cholecalciferol [Vitamin D3] 1,000 unit PO HS Linagliptin [Tradjenta] 5 mg PO DAILY Levothyroxine Sodium [Synthroid] 50 mcg PO DAILY cycloSPORINE [Restasis] 1 drop BOTH EYES BID Artificial Tears-Hypromellose [Artificial Tear Drops] 2 drops BOTH EYES Q4H PRN PRN Reason: dry gritty eyes Multivitamins, Thera [Multivitamin (formulary)] 1 tab PO HS Mylanta Suspension 30 ml PO Q4H PRN PRN Reason: Indigestion Diphenox-Atrop 2.5-0.025 mg [Lomotil] 1 tab PO Q6H PRN PRN Reason: Diarrhea Acetaminophen-Codeine 300-30mg [Tylenol #3] 1 tab PO Q6H PRN PRN Reason: Pain Amoxic-Pot Clav 875-125Mg [Augmentin 875-125] 1 tab PO Q12HR Discharge Medication List Baclofen 10 mg PO TID@0800,1200,1800 09/10/15 [History] Fenofibrate [Lofibra] 160 mg PO DAILY 09/10/15 [History] Gabapentin [Neurontin] 300 mg PO TID@0800,1200,1800 09/10/15 [History] Aspirin 81 mg PO DAILY chew 10/02/15 [Rx] Carvedilol [Coreg] 3.125 mg PO BID-W/MEALS tab 10/02/15 [Rx] Famotidine [Pepcid] 20 mg PO DAILY tab 10/02/15 [Rx] clonazePAM [KlonoPIN] 0.5 mg PO HS #30 tab 10/02/15 [Rx] Sennosides-Docusate Sodium [Senokot-S] 1 tab PO BID PRN 12/04/15 [History] Acetaminophen [Tylenol] 650 mg PO Q4H PRN 04/28/17 [History] Artificial Tears Ointment [Lubrifresh Pm Ointment] 1 applic BOTH EYES QID [History] Artificial Tears-Hypromellose [Artificial Tear Drops] 2 drops BOTH EYES Q4H PRN 04/28/17 [History] Atorvastatin [Lipitor] 40 mg PO HS 04/28/17 [History] Cholecalciferol [Vitamin D3] 1,000 unit PO HS 04/28/17 [History] Clopidogrel [Plavix] 75 mg PO DAILY 04/28/17 [History] Cranberry Fruit Concentrate [Cranberry] 450 mg PO BID 04/28/17 [History] Escitalopram [Lexapro] 10 mg PO DAILY 04/28/17 [History] INSULIN LISPRO (humaLOG) [humaLOG] 34 units SQ AC-TID 04/28/17 [History] Insulin Detemir [Levemir] 48 unit SQ BID 04/28/17 [History] Levothyroxine Sodium [Synthroid] 50 mcg PO DAILY 04/28/17 [History] Linagliptin [Tradjenta] 5 mg PO DAILY 04/28/17 [History] Loperamide [Imodium] 2 mg PO QID PRN 04/28/17 [History] Magnesium Hydroxide [Milk of Magnesia] 2,400 mg PO DAILY PRN 04/28/17 [History] Multivitamins, Thera [Multivitamin (formulary)] 1 tab PO HS 04/28/17 [History] Mylanta Suspension 30 ml PO Q4H PRN 04/28/17 [History] Pioglitazone [Actos] 15 mg PO DAILY 04/28/17 [History] cycloSPORINE [Restasis] 1 drop BOTH EYES BID 04/28/17 [History] Diphenox-Atrop 2.5-0.025 mg [Lomotil] 1 tab PO Q6H PRN 06/03/17 [History] Acetaminophen-Codeine 300-30mg [Tylenol #3] 1 tab PO Q6H PRN 08/02/17 [History] Amoxic-Pot Clav 875-125Mg [Augmentin 875-125] 1 tab PO Q12HR 08/02/17 [History] Follow up Appointment(s)/Referral(s): Marco A Marcos DO [Primary Care Provider] - 1-2 days Discharge Disposition: - Preliminary Cause of Preliminary Cause of : Sepsis secondary to MRSA bacteremia and non-ST elevated GA
--- NOTE | 2017-08-09 08:18 | CDI ---
Last Revision, March 2017 Documentation Clarification Form Date: 08/04/2017 3:26:00 PM Resubmitted 08/09/2017 From: Jeanine Musa CCS, CCDS Admit Date: 08/01/2017 10:06:00 PM Patient Name: Robert Rai Visit Number: [id number] Discharge Date: 08/07/2017 ATTENTION: The Clinical Documentation Specialists (CDI) and [facility] Coding Staff appreciate your assistance in clarifying documentation. Please respond to the clarification below the line at the bottom and electronically sign. The CDI & [facility] Coding staff will review the response and follow-up if needed. Please note: Queries are made part of the Legal Health Record. If you have any questions, please contact the author of this message via ITS. Dr. Bing Almodovar: 71 yo male, admitted with right shoulder pain via EMS from long term. Diagnosed with right shoulder pain, has abx implant in place, possible infection. Fever, elevated troponins, possible ACS. Per the 08/03 Infectios Disease consult: 1. Patient with fever with sepsis. Patient who did have features of sepsis and so far guidelines in a patient who did have fever of 102 degrees Fahrenheit. He did have a platelet count of 47. Source is likely right arm IV site infection with secondary cellulitis and likely ischemic arm with gram-positive bacteremia likely a methicillin- resistant Staphylococcus aureus infection. Per 08/04 Attending PN: Sepsis, source of infection is the right arm IV site & NSTEMI. Please clarify in your progress notes and discharge summary as to whether Sepsis and IV site as source was: Y = Yes, the condition was present at the time of the order for inpatient admission. N = No, the condition was not present at the time of the order for inpatient admission. W = Clinically undetermined if the condition was present at the time of the order for inpatient admission. Please continue to document in your progress notes and discharge summary in order to capture severity of illness and risk of mortality. Include clinical findings that support your diagnosis. Y = Yes, the condition was present at the time of the order for inpatient admission. ANUSHKA
--- NOTE | 2017-08-10 08:41 | CDI ---
Last Revision, March 2017 Documentation Clarification Form Date: 08/10/17 From: Mallika Morales Phone: If you have a question regarding this query, please contact Leighann Hill at [phone] between 8am and 5pm. Admit Date: 08/01/2017 10:06:00 PM Patient Name: Robert Rai Visit Number: [id number] Discharge Date: 08/07/17 ATTENTION: The Clinical Documentation Specialists (CDI) and [facility] Coding Staff appreciate your assistance in clarifying documentation. Please respond to the clarification below the line at the bottom and electronically sign. The CDI & [facility] Coding staff will review the response and follow-up if needed. Please note: Queries are made part of the Legal Health Record. If you have any questions, please contact the author of this message via ITS. Dr. Bing Almodovar History/Risk Factors: Patient has a diagnosis of acute on chronic injury. Patient also has a history of diabetes, CAD and hypertension and CHF. Clinical Indicators: Patient has thrombocytopenia and restless leg syndrome. Current BUN/CR/GFR: 53/2.50/25 Patients Baseline: BUN/CR/GFR: Not documented Patients medications include: IVF: Sodium chloride @ 50 mls/hr In order to capture the severity of condition, please clarify if the condition signifies: CKD Stage 1 (GFR > 90) CKD Stage 2 (GFR 60-89) CKD Stage 3 (GFR 30-59) CKD Stage 4 (GFR 15-29) CKD Stage 5 (GFR <15) ESRD Other, please specify Unable to determine Unable to determine MTDD
== END 2017-08-07 07:47 | disposition expired ==
LOC: EC 18:17 → 6SEL 22:06 → 6ICU 08-04 02:43 → 6SEL 08-05 11:15
PROVIDERS: ADMIT Internal Medicine; ATTEND Internal Medicine
DX: T82.7XXA Infection and inflammatory reaction due to other cardiac and vascular devices, implants and grafts, initial encounter (principal); A41.02 Sepsis due to Methicillin resistant Staphylococcus aureus; I21.4 Non-ST elevation (NSTEMI) myocardial infarction; G92 Toxic encephalopathy; I50.23 Acute on chronic systolic (congestive) heart failure; I13.0 Hypertensive heart and chronic kidney disease with heart failure and stage 1 through stage 4 chronic kidney disease, or unspecified chronic kidney disease; I69.354 Hemiplegia and hemiparesis following cerebral infarction affecting left non-dominant side; L03.113 Cellulitis of right upper limb; N17.9 Acute kidney failure, unspecified; E87.0 Hyperosmolality and hypernatremia; D64.9 Anemia, unspecified; E66.9 Obesity, unspecified; D69.6 Thrombocytopenia, unspecified; E11.22 Type 2 diabetes mellitus with diabetic chronic kidney disease; E11.319 Type 2 diabetes mellitus with unspecified diabetic retinopathy without macular edema; E11.51 Type 2 diabetes mellitus with diabetic peripheral angiopathy without gangrene; N18.9 Chronic kidney disease, unspecified; E78.5 Hyperlipidemia, unspecified; G25.81 Restless legs syndrome; I25.10 Atherosclerotic heart disease of native coronary artery without angina pectoris; M19.90 Unspecified osteoarthritis, unspecified site; N42.9 Disorder of prostate, unspecified; M25.511 Pain in right shoulder; R06.03 Acute respiratory distress; L89.152 Pressure ulcer of sacral region, stage 2; M24.542 Contracture, left hand; R32 Unspecified urinary incontinence; E87.8 Other disorders of electrolyte and fluid balance, not elsewhere classified; Z66 Do not resuscitate; Z79.02 Long term (current) use of antithrombotics/antiplatelets; Z79.4 Long term (current) use of insulin; Z79.82 Long term (current) use of aspirin; Z79.899 Other long term (current) drug therapy; Z96.611 Presence of right artificial shoulder joint; Z95.5 Presence of coronary angioplasty implant and graft; Z87.891 Personal history of nicotine dependence; Z87.442 Personal history of urinary calculi; Z85.828 Personal history of other malignant neoplasm of skin; Z95.0 Presence of cardiac pacemaker; Z98.41 Cataract extraction status, right eye; Z82.49 Family history of ischemic heart disease and other diseases of the circulatory system; Z80.8 Family history of malignant neoplasm of other organs or systems; Z68.31 Body mass index [BMI] 31.0-31.9, adult
CPT/HCPCS: 36415; 71045; 78580; 80048; 80053; 80061; 81001; 82150; 82550; 82553; 83036; 83605; 83690; 83735; 83880; 84484; 85025; 85379; 85610; 85730; 87040; 87077; 87186; 87502; 93005; 93306; 94760; 96365; 96366; 96375; 96376; 99285